=== PATIENT | female | born 1935 | race Caucasian/White ===

== ENCOUNTER 2019-07-17 10:32 | Emergency (ER) | payer MEDICARE, SELFPAY ==
[2019-07-17 10:43] VITALS: BP 183/100; PULSE 89; RESP 18; TEMP 36.7; O2SAT 98
--- NOTE | 2019-07-17 10:49 | PC.NURSE ---
pt does not know her medications but has taken them already this am. States is on meds for hypertension and arthritis.
--- NOTE | 2019-07-17 11:00 | ED.BACK ---
HPI - Back Pain/Injury General Chief Complaint: Back Pain/Injury Stated Complaint: flank pain Time Seen by Provider: 07/17/19 10:37 Source: patient Mode of arrival: wheelchair Limitations: no limitations History of Present Illness HPI Narrative: This is a 83 year old female that presents to the ER for low back pain since this morning. No known injury or trauma. Reports she was having some trouble getting out of bed due to right sided low back pain. Reports the pain radiates across her lower back. Reports the pain has since decreased. She has not taken any pain medication for this. Denies fever, nausea, vomiting, abdominal pain, saddle anesthesia, bowel/bladder incontinence, dysuria, or hematuria. Related Data Home Medications Medication Instructions Recorded Confirmed Unable to Obtain Home Medications 07/17/19 07/17/19 Allergies Allergy/AdvReac Type Severity Reaction Status Date / Time No Known Allergies Allergy Mild Unverified 07/17/19 10:49 Review of Systems Review of Systems: Narrative: CONSTITUTIONAL: Denies fever GASTROINTESTINAL: Denies abdominal pain, nausea, vomiting GENITOURINARY: Denies dysuria or hematuria. SKIN: Denies rash MUSCULOSKELETAL: Reports back pain, joint pain, and myalgia. NEUROLOGIC: Denies numbness, or weakness. All systems reviewed & are unremarkable except as noted in HPI and below PMFSH Past Medical History Medical History (Updated 07/17/19 @ 12:06 by Opal Mcgrath PA-C) History of hypertension Social History Social History (Updated 07/17/19 @ 11:03 by Opal Mcgrath PA-C) Smoking status: Never smoker Gender identity (if verbalized by the patient): Female Exam Narrative: Exam Narrative: GENERAL: Well-appearing, well-nourished, and in no acute distress. HEAD: Normocephalic, atraumatic. EYES: EOMI. CHEST: Clear to auscultation. No respiratory distress. No wheezes rales or rhonchi HEART: Regular rate and rhythm. No murmur heard. Normal peripheral pulses. BACK: No midline spinal tenderness. Strength equal in bilateral lower extremities (5/5) EXTREMITIES: Normal range of motion. No edema. SKIN: Warm, dry, no rash. NEURO: No focal deficits. Alert and oriented x3. Normal gait PSYCH: Normal mood and affect Course Vital Signs Vital signs: Vital Signs Temperature 98.1 F 02/26/20 10:43 Pulse Rate 89 07/17/19 10:43 Respiratory Rate 18 07/17/19 10:43 Blood Pressure 183/100 H 07/17/19 10:43 Pulse Oximetry 98 07/17/19 10:43 Temperature 98.1 F 07/17/19 10:43 Pulse Rate 89 07/17/19 10:43 Respiratory Rate 18 07/17/19 10:43 Blood Pressure 183/100 H 07/17/19 10:43 Pulse Oximetry 98 07/17/19 10:43 MDM - Back Pain/Injury MDM Narrative Medical decision making narrative: Patient presents to the emergency department for right-sided low back pain since this morning. No known injury or trauma. She is neurologically intact. No midline spinal tenderness. Blood pressure elevated on arrival, patient is asymptomatic. She denies any chest pain, shortness of breath, or headache. She was instructed to follow-up with her primary for this. Otherwise vitals are normal. She is afebrile and nontoxic-appearing. She ambulated in the halls without difficulty. She reports improvement after Tylenol and anti-inflammatory. She was instructed to continue [id number] medications as needed and to follow-up with her primary doctor. Patient was given warnings to return to the ER Critical Care Time Critical Care Time Critical Care Time: No Discharge Plan Discharge Clinical Impression: Low back pain Qualifiers: Chronicity: acute Back pain laterality: right Sciatica presence: without sciatica Qualified Code(s): M54.5 - Low back pain Patient Disposition: Home, Self-Care Condition: Stable Instructions: Acute Low Back Pain (ED) Additional Instructions: Return to the ER if you experience fever, abdominal pain, pain or burning with urination, weakness, nu
[2019-07-17] MEDS: ACETAMINOPHEN 325 MG TABLET 650 MG PO (11:01)
[2019-07-17] MEDS: KETOROLAC (*BKC) 60 MG/2 ML VIAL 30 MG IM (11:02)
[2019-07-17 12:16] VITALS: BP 168/108; PULSE 77; RESP 16; O2SAT 98
== END 2019-07-17 12:16 | disposition home or self-care (01) ==
PROVIDERS: Emergency Provider Emergency Medicine; PCP Internal Medicine Infectious Disease
DX: M54.5 Low back pain (principal); I10 Essential (primary) hypertension
CPT/HCPCS: 96372; 99283; A9270; J1885

== ENCOUNTER 2021-11-08 11:23 | Inpatient (IN) | payer MEDICARE, SELFPAY ==
[2021-11-08] VITALS (9 sets, daily range): BP systolic 146–173; BP diastolic 43–87; PULSE 101–124; RESP 16–30; TEMP 36.7–37.7; O2SAT 96–99; BMI 30.6
--- NOTE | ~2021-11-08 | CT_ITS ---
EXAMINATION: CTA chest PE protocol DATE: 11/08/2021 14:29 INDICATION: Dyspnea TECHNIQUE: Computed tomography angiography (CTA) of the chest was performed with 100 mL Omnipaque-350 intravenous contrast timed to evaluate the pulmonary arteries. Coronal maximum intensity projection 3D-reconstructions were created by the technologist. Automated exposure control and iterative reconst ruction technique were employed. Exam dose: 433.84 mGy-cm total exam DLP. COMPARISON: 11/08/2021 portable AP chest FINDINGS: There is diagnostic contrast enhancement of the pulmonary arteries and no evidence of pulmo nary embolism. Mild thoracic aortic aneurysm. There is aortic and coronary artery calcification. Borderline heart si ze. No hilar or mediastinal mass lesion or lymphadenopathy. Moderately prominent size hiatal hernia. No pulmonary infiltrate or consolidation. Normal morphology of the adrenal glands. Left shoulder joint prosthesis. 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 Diffuse idiopathic skeletal hyperostosis of the thoracic spine. No suspicious osteolytic or osteoblastic lesions are noted. Osteopenia. IMPRESSION: No evidence of pulmonary embolism Reviewed, dictated and finalized at [facility]. Reviewed, dictated and finalized at location [facility].
--- NOTE | ~2021-11-08 | XR_ITS ---
EXAMINATION: XR chest 1V portable DATE: 11/08/2021 12:54 INDICATION: Cough. TECHNIQUE: frontal view of the chest was obtained. COMPARISON: None FINDINGS: Skinfold projects along the lateral right mid to lower lung zone. No other airspace opacities, pulmon arcelia edema, pleural effusion or pneumothorax. The cardiomediastinal silhouette is normal. Severe osteo arthritis at the right glenohumeral joint. Left shoulder arthroplasty. IMPRESSION: 1. No acute cardiopulmonary disease. Reviewed, dictated and finalized at location [facility].
--- NOTE | ~2021-11-08 | US_ITS ---
EXAMINATION: US venous doppler [facility] DATE: 11/08/2021 12:32 INDICATION: Bilateral lower limb swelling TECHNIQUE: Regalado scale images without and with compression and Doppler images of the bilateral lower e xtremity veins were obtained. COMPARISON: None FINDINGS: The right common femoral vein, profunda femoral vein, femoral vein, popliteal vein, peroneal trunk, p osterior tibial veins, and greater saphenous vein are patent. The left common femoral vein, profunda femoral vein, femoral vein, popliteal vein, peroneal trunk, po sterior tibial veins, and greater saphenous vein are patent. IMPRESSION: 1. Patent bilateral lower extremity veins. No evidence of deep venous thrombosis. Reviewed, dictated and finalized at location [facility]. IMPRESSION: 1. Patent bilateral lower extremity veins. No evidence of deep venous thrombosi s.
--- NOTE | 2021-11-08 11:44 | ECG_ITS ---
Measurements Intervals [place] Rate: 117 P: RI: 0 QRS: 22 QRSD: 93 T: -58 QT: 293 QTc: 410 Interpretive Statements ATRIAL FIBRILLATION WITH RAPID VENTRICULAR RESPONSE BASELINE ARTIFACT ST DEVIATION AND MODERATE T-WAVE ABNORMALITY, CONSIDER ANTEROLATERAL ISCHEMIA ST DEVIATION AND MODERATE T-WAVE ABNORMALITY, CONSIDER INFERIOR ISCHEMIA ABNORMAL ECG NO PREVIOUS ECG AVAILABLE FOR COMPARISON Electronically Signed On 11-08-2021 14:52:44 CDT by Geo Schwab M.D.
--- NOTE | 2021-11-08 12:34 | ED.GENADULT ---
HPI - General Adult General Chief complaint: Extremity Injury, Lower Stated complaint: glf this am, lower extremety swelling x 1 week History of Present Illness HPI narrative: Patient presents emergency department from home for leg swelling. Patient states that she has been feeling weak and fell earlier today and EMS to come to the house for lift assist patient again and try to get up and had not been able to get up and had at that time EMS was called and transfer the patient to the emergency department. Patient states she has been having increased swelling in her bilateral legs over the past 1 week states that with this she has been having some shortness of breath is worse with exertion Per the family the patient tested positive for COVID-19 approximately week to 2 weeks ago with a home test but is unsure of the exact date patient states that her legs have been aching at the swelling but denies any direct trauma or injury from her fall she denies striking her head or any head injury Related Data Home Medications Medication Instructions Recorded Confirmed levothyroxine 137 mcg tablet tablet 11/08/21 lisinopril 40 mg tablet tablet 11/08/21 metoprolol succinate 100 mg tablet PO 11/08/21 tablet,extended release 24 hr omeprazole 40 mg capsule,delayed cap 11/08/21 release trospium 20 mg tablet tablet 11/08/21 11/08/21 Allergies Allergy/AdvReac Type Severity Reaction Status Date / Time No Known Allergies Allergy Mild Unverified 11/08/21 11:38 Review of Systems Review of Systems: Gen.: Denies fevers or chills Eyes: Denies eye pain or visual change ENT: Denies congestion Respiratory: For shortness of breath CV: Denies chest pain or palpitations GI: Denies abdominal pain nausea, emesis or diarrhea Musculoskeletal: Denies back pain or muscle pain reports lower extremity edema Neuro: Denies numbness, tingling, weakness or focal weakness Skin: Denies rash Except as documented, all other systems reviewed and negative [facility] Past Medical History Medical History (Updated 11/08/21 @ 17:52 by Vasiliy Fox DO) History of hypertension Social History Social History (Updated 07/17/19 @ 11:03 by Opal Mcgrath PA-C) Smoking status: Never smoker Gender identity (if verbalized by the patient): Female Exam Narrative: APPEARANCE: No acute distress, nontoxic, resting in bed EYES: EOMI, PERRL HEENT: Normocephalic, atraumatic, OMM RESPIRATORY: No respiratory distress Clear to auscultation bilaterally with no rhonchi wheezing or rales. CARDIOVASCULAR: Tachycardic and regular without murmurs rubs or gallops. ABDOMINAL: Soft, nontender, nondistended, no rebound or guarding MUSCULOSKELETAl: Moves all extremities. No clubbing, cyanosis 3+ edema bilateral lower extremities, the right anterior lower leg has superficial abrasions with erythema this extends down to the foot no fluctuance NEURO: Awake and alert x 3. Following commands, speech normal, no focal deficits SKIN:: Warm, dry. No rashes lesions or abrasions PSYCHIATRIC: Normal affect/mood, Course Course Emergency Course: Discussed with [employer]ER Lyudmila for Dr. Schwab presentation work-up agrees with consult agrees with plan for Lovenox and Cardizem drip Discussed with TEXT[employer]CREEN [employer]KER Amarilys for Dr. Brooks agrees with admission Discussed with patient and family results of workup and diagnosis. Discussed need for admission. Patient and family understand and agree to current treatment plan Vital Signs Vital signs: Vital Signs Temperature 98.1 F 11/08/21 11:24 Pulse Rate 116 H 11/08/21 11:24 Respiratory Rate 20 11/08/21 11:24 Blood Pressure 173/87 H 11/08/21 11:24 Pulse Oximetry 99 11/08/21 11:24 Oxygen Delivery Room Air 11/08/21 11:24 Temperature 98.1 F 11/08/21 11:24 Pulse Rate 114 H 11/08/21 16:16 Respiratory Rate 26 H 11/08/21 16:16 Blood Pressure 146/72 H 11/08/21 16:16 Pulse Oximetry 99 11/08/21 16:16 Oxygen Delivery Room Air 11/08/21
[2021-11-08 12:56] LABS: Basophils Percent Auto 0.2 % (0.2-1.2); Eosinophils Percent Auto 0.1 % (0-4.4); Hematocrit 34.7 % (37.0-47.0); Hemoglobin 11.2 g/dL (12.0-15.0); Immature Granulocyte Absolute 0.06 K/mm3 (0.00-0.031); Immature Granulocyte Percent A 0.6 % (0-0.5); Lymphocytes Absolute Auto 0.48 K/mm3 (0.9-3.2); Lymphocytes Percent Auto 4.7 % (18.3-44.2); Mean Corpuscular HGB Conc 32.3 g/dl (32-36); Mean Corpuscular Hemoglobin 29.5 pg (26-34); Mean Corpuscular Volume 91.3 fl (80-100); Mean Platelet Volume 9.6 fl (7.4-10.4); Monocytes Absolute Auto 1.3 K/mm3 (0.1-0.6); Monocytes Percent Auto 12.3 % (2.6-8.5); Neutrophils Absolute Auto 8.5 K/mm3 (1.3-6.7); Neutrophils Percent Auto 82.1 % (45.5-73.1); Platelet Count Result 220 k/mm3 (150-375); Red Cell Distribution Width 14.6 % (11.5-14.5); White Blood Count 10.3 K/mm3 (4.5-10.0)
[2021-11-08 13:06] LABS: INR 1.1; Prothrombin Time 13.6 Seconds (11.1-14.7)
[2021-11-08 13:07] LABS: Alanine Aminotransferase 12 U/L (6-35); Albumin Level 3.6 g/dL (3.5-5.1); Alkaline Phosphatase 74 U/L (38-126); Anion Gap 5 mmol/L (8-16); Aspartate Amino Transferase 17 U/L (14-36); Bilirubin,Total 0.9 mg/dL (0.2-1.3); Blood Urea Nitrogen 15 mg/dL (7-17); Calcium 8.5 mg/dL (8.4-10.2); Carbon Dioxide 29 mmol/L (22-30); Chloride 100 mmol/L (98-107); Estimated CRCL calculation 46 ml/min; Estimated Glomerular Filt Rate > 60; Glucose 129 mg/dL (65-110); Partial Thromboplastin Time 29.6 SECONDS (22.3-36.8); Potassium 3.8 mmol/L (3.4-5.0); Sodium 134 mmol/L (137-145)
[2021-11-08] MEDS: dilTIAZem 100 MG/100 ML 100 MG/100 ML BAG IV CONT (13:09)
[2021-11-08 13:32] LABS: NT Pro B Type Natriuretic Pept 797 pg/mL (5-100); Troponin I 0.044 ng/mL (0.000-0.034)
[2021-11-08] MEDS: ENOXAPARIN 100 MG/ML SYRINGE 81 MG SUB-Q (16:09)
[2021-11-08 16:10] LABS: SARS-CoV-2 RNA PCR Positive
[2021-11-08 16:41] LABS: Troponin I 0.052 ng/mL (0.000-0.034)
[2021-11-08 16:49] LABS: Appearance Urine Cloudy (Clear); Bilirubin Urine Negative (Negative); Color Urine Yellow (Yellow); Glucose Urine UA Negative (Negative); Ketones Urine 1+ mg/dL (Negative); Leukocyte Esterase Ur 2+ LEU/UL (Negative); Nitrate Urine Negative (Negative); Protein Urine 1+ mg/dL (Negative); Specific Grav Ur 1.015 (1.001-1.035); Urobilinogen Urine 0.2 mg/dL (<2.0)
[2021-11-08 16:52] LABS: Add Urine Microscopic? YES; Bacteria Urine 2+ /hpf; Blood Urine Trace-Intact (Negative); Mucus Urine Heavy /lpf; RBC Urine 0-2 /hpf (0-2); WBC Urine >75 /hpf
--- NOTE | 2021-11-08 17:36 | ADMGEN ---
This patient, Janet Galvez, was admitted to [facility] Surg Room [facility] at 1736 on 11/08/2021. Patient/family oriented to hospital policies and general routines including ID bracelet, bed and alarms, visiting hours, pain management, procedures, bathroom and other care routines, personal items, smoking policy, room service/diet, and visiting hours. Information on how to activate the Rapid Response Team has been discussed. Patient/Family are encouraged to report perceived risks to care and to ask questions if they do not understand what they are told or what they should do.
--- NOTE | 2021-11-08 19:31 | PM.IMHP ---
H&P: HPI History of Present Illness Date/Time: Patient was placed observation status for expected length of stay less than 23 hours for management, will plan to re-evaluate tomorrow for improvement. 11/08/21 19:31 Chief Complaint: Weakness Narrative: Ms. Galvez is an 85-year-old female who presented to the emergency room with complaints of weakness x1 week. Patient states that she was diagnosed with COVID a couple of weeks ago, her family is at bedside states they are unsure the exact date she took a home test. Patient states she has had a cough off and on since that time. Patient denies any sputum production. Patient denies any fever chills. Patient denies any chest pain or palpitations. Patient states that when she got up this morning she was feeling weaker than she had been last week. Patient states that she fell this morning and was unable to be assisted up by her family. Patient states that EMS need to be called to help her get up. Patient states that she has noticed some swelling to bilateral lower extremities for the last 2-3 weeks and she at noticed some pain to bilateral lower extremities with right being greater than left. Patient states she has had occasional shortness of breath with exertion. Patient denies any dysuria, hematuria, frequency, or urgency. Patient denies any abdominal pain, nausea, vomiting, constipation, or diarrhea. Patient states she has been taking all medications without any difficulty. Upon evaluation emergency room patient was noted to be in atrial fibrillation with rapid ventricular response and was placed on a Cardizem drip. Patient was also noted to have a mild elevation in her troponins. Patient's EKG showed atrial fibrillation with rapid ventricular response with ST depressions anterior lateral and inferiorly. Patient states she has a known history of hypertension and hypothyroidism. Patient denies any history of CAD, CVA, or peripheral arterial disease. Review of Systems Review of Systems: A 12 point review of systems was completed patient all pertinent positive and negative per HPI the remainder are unremarkable. [facility] Past Medical History Medical History (Updated 11/08/21 @ 20:04 by Amarilys Carson APRN) History of hypertension Hypothyroidism Surgical History Surgical History (Updated 11/08/21 @ 19:52 by Amarilys Carson APRN) History of appendectomy History of hysterectomy History of open reduction and internal fixation (ORIF) procedure Left arm Family History Family History (Updated 11/08/21 @ 19:55 by Yeny Shoemaker RN) Other Unknown family medical history Social History Social History (Updated 07/17/19 @ 11:03 by Opal Mcgrath PA-C) Smoking status: Never smoker Alcohol intake: never Substance use: never Gender identity (if verbalized by the patient): Female Spiritual care concerns: No Meds Home Medications and Allergies Home Medications Medication Instructions Recorded Confirmed Type levothyroxine 137 mcg tablet 1 tablet PO DAILY 11/08/21 11/08/21 History lisinopril 40 mg tablet 1 tablet PO DAILY 11/08/21 11/08/21 History metoprolol succinate 100 mg 1 tablet PO DAILY 11/08/21 11/08/21 History tablet,extended release 24 hr omeprazole 40 mg capsule,delayed 1 cap PO DAILY 11/08/21 11/08/21 History release trospium 20 mg tablet 1 tablet PO DAILY 11/08/21 11/08/21 History Allergies Allergy/AdvReac Type Severity Reaction Status Date / Time No Known Allergies Allergy Mild Unverified 11/08/21 11:38 Vital Signs Vital Signs - 24 hr 11/08/21 11:24 11/08/21 12:27 11/08/21 13:09 Temperature 36.7 C Pulse Rate 116 H 117 H 118 H Respiratory Rate 20 24 H Blood Pressure 173/87 H 157/72 H Pulse Oximetry 99 97 Oxygen Delivery Room Air 11/08/21 16:01 11/08/21 16:16 11/08/21 17:59 Temperature 37.7 C H Pulse Rate 113 H 114 H 114 H Respiratory Rate 22 H 26 H 16 Blood Pressure 146/72 H 170/61 H Pu
[2021-11-08 19:58] LABS: Troponin I 0.059 ng/mL (0.000-0.034)
[2021-11-08] MEDS: ACETAMINOPHEN 325 MG TABLET 650 MG PO (20:41)
[2021-11-09] VITALS (18 sets, daily range): BP systolic 131–182; BP diastolic 55–94; PULSE 66–100; RESP 18–25; TEMP 36.8–38.3; O2SAT 92–99
[2021-11-09 04:36] LABS: Basophils Percent Auto 0.3 % (0.2-1.2); Eosinophils Absolute Auto 0.1 K/mm3 (0-0.3); Hematocrit 31.1 % (37.0-47.0); Hemoglobin 10.2 g/dL (12.0-15.0); Immature Granulocyte Absolute 0.06 K/mm3 (0.00-0.031); Immature Granulocyte Percent A 0.8 % (0-0.5); Lymphocytes Absolute Auto 0.72 K/mm3 (0.9-3.2); Lymphocytes Percent Auto 9.1 % (18.3-44.2); Mean Corpuscular HGB Conc 32.8 g/dl (32-36); Mean Corpuscular Hemoglobin 29.6 pg (26-34); Mean Corpuscular Volume 90.1 fl (80-100); Monocytes Absolute Auto 1.2 K/mm3 (0.1-0.6); Monocytes Percent Auto 15.6 % (2.6-8.5); Neutrophils Absolute Auto 5.8 K/mm3 (1.3-6.7); Neutrophils Percent Auto 73.2 % (45.5-73.1); Platelet Count Result 200 k/mm3 (150-375); Red Blood Count 3.45 M/mm3 (4.2-5.4); Red Cell Distribution Width 14.6 % (11.5-14.5); White Blood Count 7.9 K/mm3 (4.5-10.0)
[2021-11-09 04:47] LABS: Magnesium 1.9 mg/dL (1.6-2.3)
[2021-11-09 04:52] LABS: Alanine Aminotransferase 11 U/L (6-35); Albumin Level 3.3 g/dL (3.5-5.1); Alkaline Phosphatase 48 U/L (38-126); Anion Gap 4 mmol/L (8-16); Aspartate Amino Transferase 26 U/L (14-36); Bilirubin,Total 0.9 mg/dL (0.2-1.3); Blood Urea Nitrogen 11 mg/dL (7-17); Calcium 7.7 mg/dL (8.4-10.2); Carbon Dioxide 25 mmol/L (22-30); Chloride 103 mmol/L (98-107); Estimated CRCL calculation 60 ml/min; Estimated Glomerular Filt Rate > 60; Glucose 110 mg/dL (65-110); Sodium 132 mmol/L (137-145)
[2021-11-09] MEDS: LEVOTHYROXINE SODIUM 25 MCG TABLET PO (06:05)
[2021-11-09] MEDS: LEVOTHYROXINE SODIUM 112 MCG TABLET PO (06:05)
[2021-11-09] MEDS: ENOXAPARIN 100 MG/ML SYRINGE 80 MG SUB-Q ×2 (06:05→17:57)
[2021-11-09] MEDS: dilTIAZem 100 MG/100 ML 100 MG/100 ML BAG IV CONT (06:35)
--- NOTE | 2021-11-09 08:27 | PM.CNCAR ---
Assessment and Plan Assessment and plan (1) Atrial fibrillation with rapid ventricular response: Code(s): I48.91 - Unspecified atrial fibrillation Status: Acute Assessment and Plan: 85-year-old female with hypertension, hypothyroidism on levothyroxine. Patient admitted to the hospital with lower extremity swelling and shortness of breath. She was diagnosed with COVID-19 infection about 2 weeks ago, and remains positive thus far. She is currently in isolation. Patient found to be in atrial fibrillation with RVR upon presentation in the setting of COVID-19 infection. -heart rates are better controlled now, bridge IV diltiazem to short-acting p.o. diltiazem. May discontinue diltiazem if patient has significant LV systolic dysfunction on echo which is pending at this time. -change metoprolol succinate to metoprolol tartrate for now. -decrease lisinopril dose to leave room for AV rajendra blocking agent. -continue anticoagulation with low-molecular weight heparin for now. Chronic anticoagulation with 1 of the direct oral anticoagulants like apixaban or rivaroxaban. PT OT evaluation for gait stability. -continue to monitor on telemetry (2) Elevated troponin: Code(s): R77.8 - Other specified abnormalities of plasma proteins Status: Acute Assessment and Plan: Flat in the setting of AFib with RVR, COVID-19 infection. Likely non ACS. Echocardiogram is pending check LV function and wall motion. Need for any ischemic evaluation to be determined. (3) COVID-19: Code(s): U07.1 - COVID-19 Status: Acute Assessment and Plan: Management as per primary team. (4) CHF (congestive heart failure): Code(s): I50.9 - Heart failure, unspecified Status: Acute Assessment and Plan: Echo pending to assess LV/RV function, valves. Start diuresis with furosemide 40 mg p.o. q.a.m. with close monitoring of volume status, electrolytes and renal function Plan . History of Present Illness History of Present Illness Consult date/time: 11/09/21 08:27 Requesting physician: Vasiliy Fox DO Consult reason: atrial fibrillation Reason For Visit: a fib with rvr,cellulitis right leg,chf Narrative: DATE OF CONSULT: 11/09/2021 REASON FOR CONSULT: Atrial fibrillation REQUESTING PHYSICIAN:DO Dominique CHIEF COMPLAINT: Leg swelling, shortness of breath HPI: 85-year-old female with hypertension, hypothyroidism on levothyroxine. Patient presented to [facility] Emergency Room on 11/08/2021 with complaints of leg swelling and shortness of breath. Patient states that she was diagnosed with COVID-19 about 2 weeks ago. Patient states that she was vaccinated against COVID-19. She has been experiencing shortness of breath and worsening leg swelling for last 7-10 days. Patient states that she has limited mobility at baseline, use walker for ambulation. She denies chest pain, palpitation, dizziness or syncope. She denies any known prior cardiac history. Patient was found to be in atrial fibrillation with RVR at presentation, and was initiated on IV diltiazem. Currently, on telemetry, she is in atrial fibrillation with relatively controlled heart rates in 90s. Patient was found to be COVID-19 positive and placement isolation EKG on personal evaluation showed atrial fibrillation with RVR, ventricular rate 117 beats per minute, ST-T abnormality, possible ischemia. Troponins are minimally elevated with peak troponin of 0.05, essentially flat. ProBNP elevated at 797. Chest x-ray unremarkable. CT chest negative for PE. No DVT on lower extremity venous Doppler. TSH normal at 2.84. Review of Systems Review of Systems: General: Positive for fatigue Psychological: Positive for anxiety Ophthalmic: negative for loss of vision ENT: Negative for epistaxis, headaches Allergy and immunology: Negative for hives, nasal congestion Hematologic and lymphatic: Negative for overt bleeding problems Endocrine
--- NOTE | 2021-11-09 09:21 | PCOTNOTE ---
Attempted OT evaluation. Despite encouragement to participate with Occupational Therapy, patient declined at this time, reporting to much pain in legs. Will follow.
[2021-11-09] MEDS: FUROSEMIDE 40 MG TABLET PO (10:25)
[2021-11-09] MEDS: METOPROLOL TARTRATE TAB 25 MG, METOPROLOL TARTRATE TAB 50 MG 75 MG PO ×2 (10:25→21:23)
[2021-11-09] MEDS: PANTOPRAZOLE 40 MG TABLET PO ×2 (10:26→17:56)
[2021-11-09] MEDS: dilTIAZem HCL 30 MG TABLET PO ×3 (11:29→23:06)
--- NOTE | 2021-11-09 11:38 | PCPTNOTE ---
Attempted PT evaluation, pt refused stating her legs hurt too bad to participate in therapy. RN aware. Will Follow.
--- NOTE | 2021-11-09 15:10 | PM.IMPN ---
Progress Note: A&P Assessment and Plan (1) Atrial fibrillation with rapid ventricular response: Code(s): I48.91 - Unspecified atrial fibrillation Status: Acute Assessment and Plan: Patient denies any history of atrial fibrillation. Patient has been placed on a Cardizem drip for atrial fib with rapid ventricular response. Patient does take metoprolol at home and states she has been taking all home medications. Patient's magnesium is 2.0 and potassium is 3.8. TSH normal. Cardiology consulted. Cardizem was started for optimal her heart rate control and has been turned of now. Echo 11/09/2021 with EF 70% indeterminate diastolic function mildly thickened mitral valve leaflets no significant MR. (2) Elevated troponin: Code(s): R77.8 - Other specified abnormalities of plasma proteins Status: Acute Assessment and Plan: There is a mild elevation in troponins could be secondary to atrial fibrillation with the rapid ventricular response. Patient denies any history of coronary artery disease or atrial fibrillation. Consulted Cardiology (3) Cellulitis of leg, right: Code(s): L03.115 - Cellulitis of right lower limb Status: Acute Assessment and Plan: Patient's right lower extremity does appear to have cellulitis Was given Ancef. Was switched to ceftriaxone. For anaerobic coverage will add Flagyl since there was noted purulence in her cellulitis (4) Acute UTI: Code(s): N39.0 - Urinary tract infection, site not specified Status: Acute Assessment and Plan: Patient has been placed on Rocephin and will await culture and sensitivity results and adjust antibiotics accordingly based on sensitivities. (5) Weakness: Code(s): R53.1 - Weakness Status: Acute Assessment and Plan: Could be multifactorial including atrial fibrillation with rapid ventricular response as well as urinary tract infection. Will have PT/OT to evaluate and treat. Subjective Date/time seen: 11/09/21 15:10 Interval history: HPI:Ms. Galvez is an 85-year-old female who presented to the emergency room with complaints of weakness x1 week.? Patient states that she was diagnosed with COVID a couple of weeks ago, her family is at bedside states they are unsure the exact date she took a home test.? Patient states she has had a cough off and on since that time.? Patient denies any sputum production.? Patient denies any fever chills.? Patient denies any chest pain or palpitations.? Patient states that when she got up this morning she was feeling weaker than she had been last week.? Patient states that she fell this morning and was unable to be assisted up by her family.? Patient states that EMS need to be called to help her get up.? Patient states that she has noticed some swelling to bilateral lower extremities for the last 2-3 weeks and she at noticed some pain to bilateral lower extremities with right being greater than left.? Patient states she has had occasional shortness of breath with exertion.? Patient denies any dysuria, hematuria, frequency, or urgency.? Patient denies any abdominal pain, nausea, vomiting, constipation, or diarrhea.? Patient states she has been taking all medications without any difficulty.? Upon evaluation emergency room patient was noted to be in atrial fibrillation with rapid ventricular response and was placed on a Cardizem drip.? Patient was also noted to have a mild elevation in her troponins.? Patient's EKG showed atrial fibrillation with rapid ventricular response with ST depressions anterior lateral and inferiorly. Patient states she has a known history of hypertension and hypothyroidism.? Patient denies any history of CAD, CVA, or peripheral arterial disease. 11/09/2021 confused no overnight events heart rate is controlled off diltiazem drip now cardiology notes reviewed. Review of Systems Review of Systems: All systems reviewed & are unremarkable except as not
--- NOTE | 2021-11-09 16:52 | ECHO_ITS ---
Patient Info Name: Janet Galvez Age: 85 years : 1935 Gender: Female Ht: 64 in Wt: 178 lbs BSA: 1.94 m2 HR: 74 bpm BP: 182 / 75 mmHg Heart Rhythm: Sinus Rhythm Technical Quality: Fair Exam Date: 11/09/2021 10:27 AM Exam Location: Echo Lab Patient Status: Outpatient Admit Date: 11/08/2021 Staff Ordering Physician: Amarilys Carson APRN Sheet Metal Layout Mechanic: Dulce Camaar RDCS Attending Provider: Sixto Lara MD Referring Physician: Alli ZHENG; Exam Type: CA echo doppler color flow Study Info Indications - New afib Complete two-dimensional, color flow and Doppler transthoracic echocardiogram is performed. Summary 1. Complete two-dimensional, color flow and Doppler transthoracic echocardiogram is performed. 2. Technically difficult study, suboptimal image quality. Normal LV size and wall thickness, hyperdynamic LV systolic function, ejection fraction more than 70%. Indeterminate diastolic function. Mitral valve leaflets appear mildly thickened, no significant MR. Aortic valve is not well visualized, appears sclerotic; no significant stenosis by Doppler. Trace TR, unable to assess RVSP due to inadequate TR jet. Left Ventricle Left ventricular chamber dimension is normal. Left ventricular systolic function is hyperdynamic, estimated at >70%. There is no increased left ventricular wall thickness. The left ventricular diastolic function is grade I diastolic dysfunction. Right Ventricle Right ventricular chamber dimension is normal. Right ventricular systolic function is normal. Left Atria Left atrial chamber dimension is normal. Right Atria Right atrial chamber dimension is normal. Aortic Valve The aortic valve is not well visualized. There is mild aortic valve sclerosis. There is no aortic valve stenosis. Pulmonic Valve The pulmonic valve is not well visualized. Mitral Valve The mitral valve has thickened leaflets. Tricuspid Valve The tricuspid valve leaflets are normal. There is trace tricuspid valve regurgitation. Pericardium/Pleural The pericardium appears epicardial fat pad. There is trivial pericardial effusion. Left Ventricular Outflow Tract Name Value Normal LVOT 2D LVOT Diameter 2.0 cm LVOT Doppler LVOT Peak Gradient 10 mmHg LVOT Mean Gradient 6 mmHg LVOT VTI 30 cm LVOT VTI/AV VTI Ratio 0.9 LVOT Stroke Volume 95 ml LVOT CO 9.1 l/min LVOT CI 4.7 l/min/m2 Pulmonic Valve Name Value Normal RVOT Doppler RVOT Peak Gradient 4 mmHg PV Doppler PV Peak Gradient 7 mmHg
--- NOTE | 2021-11-09 16:54 | PC.NURSE ---
This patient, aJnet Galvez, was transferred to [facility] on 11/09/21 at 1649. Personal belongings sent with patient. Report given to Verito CASTRO. Appropriate documentation sent with patient.
[2021-11-09] MEDS: ACETAMINOPHEN 325 MG TABLET 650 MG PO (20:40)
[2021-11-10] VITALS (9 sets, daily range): BP systolic 137–158; BP diastolic 53–74; PULSE 59–83; RESP 18–24; TEMP 36.6–37.3; O2SAT 97–100
[2021-11-10] MEDS: ENOXAPARIN 100 MG/ML SYRINGE 80 MG SUB-Q ×2 (05:31→17:54)
[2021-11-10] MEDS: LEVOTHYROXINE SODIUM 112 MCG TABLET PO (05:31)
[2021-11-10] MEDS: dilTIAZem HCL 30 MG TABLET PO ×3 (05:31→23:45)
[2021-11-10] MEDS: LEVOTHYROXINE SODIUM 25 MCG TABLET PO (05:31)
[2021-11-10 05:59] LABS: Basophils Percent Auto 0.4 % (0.2-1.2); Eosinophils Percent Auto 0.4 % (0-4.4); Hematocrit 31.1 % (37.0-47.0); Immature Granulocyte Absolute 0.07 K/mm3 (0.00-0.031); Immature Granulocyte Percent A 0.9 % (0-0.5); Lymphocytes Absolute Auto 0.55 K/mm3 (0.9-3.2); Lymphocytes Percent Auto 6.8 % (18.3-44.2); Mean Corpuscular HGB Conc 32.2 g/dl (32-36); Mean Corpuscular Hemoglobin 29.3 pg (26-34); Mean Corpuscular Volume 91.2 fl (80-100); Monocytes Absolute Auto 1.2 K/mm3 (0.1-0.6); Monocytes Percent Auto 14.6 % (2.6-8.5); Neutrophils Absolute Auto 6.3 K/mm3 (1.3-6.7); Neutrophils Percent Auto 76.9 % (45.5-73.1); Platelet Count Result 207 k/mm3 (150-375); Red Blood Count 3.41 M/mm3 (4.2-5.4); Red Cell Distribution Width 14.3 % (11.5-14.5); White Blood Count 8.1 K/mm3 (4.5-10.0)
[2021-11-10 06:18] LABS: Alanine Aminotransferase 10 U/L (6-35); Albumin Level 3.2 g/dL (3.5-5.1); Alkaline Phosphatase 64 U/L (38-126); Anion Gap 4 mmol/L (8-16); Aspartate Amino Transferase 23 U/L (14-36); Bilirubin,Total 0.7 mg/dL (0.2-1.3); Blood Urea Nitrogen 10 mg/dL (7-17); Calcium 7.8 mg/dL (8.4-10.2); Carbon Dioxide 27 mmol/L (22-30); Chloride 101 mmol/L (98-107); Estimated CRCL calculation 55 ml/min; Estimated Glomerular Filt Rate > 60; Glucose 101 mg/dL (65-110); Potassium 3.8 mmol/L (3.4-5.0); Sodium 132 mmol/L (137-145)
[2021-11-10] MEDS: lisinopriL 10 MG TABLET PO (10:33)
[2021-11-10] MEDS: METOPROLOL TARTRATE TAB 25 MG, METOPROLOL TARTRATE TAB 50 MG 75 MG PO ×2 (10:33→20:18)
[2021-11-10] MEDS: FUROSEMIDE 40 MG TABLET PO (10:33)
[2021-11-10] MEDS: PANTOPRAZOLE 40 MG TABLET PO ×2 (10:33→17:54)
--- NOTE | 2021-11-10 15:33 | PM.IMPN ---
Progress Note: A&P Assessment and Plan (1) Atrial fibrillation with rapid ventricular response: Code(s): I48.91 - Unspecified atrial fibrillation Status: Acute Assessment and Plan: Patient denies any history of atrial fibrillation. Patient has been placed on a Cardizem drip for atrial fib with rapid ventricular response. Patient does take metoprolol at home and states she has been taking all home medications. Patient's magnesium is 2.0 and potassium is 3.8. TSH normal. Cardiology consulted. Cardizem was started for optimal her heart rate control and has been turned of now. Echo 11/09/2021 with EF 70% indeterminate diastolic function mildly thickened mitral valve leaflets no significant MR. (2) Elevated troponin: Code(s): R77.8 - Other specified abnormalities of plasma proteins Status: Acute Assessment and Plan: There is a mild elevation in troponins could be secondary to atrial fibrillation with the rapid ventricular response. Patient denies any history of coronary artery disease or atrial fibrillation. Consulted Cardiology 11/10/2021 interval history: patient remains confused unable to provide detailed review of symptom, does nod states feeling, patient with COVID-19 not requiring any oxygen, patient with a UTI with E coli being treated with ceftriaxone, patient had atrial fibrillation with RVR not rate is controlled will diltiazem 30 mg q.6, cardiac echo showed ejection fraction 70% bilateral atrial dimensions are normal, will continue to monitor. (3) Cellulitis of leg, right: Code(s): L03.115 - Cellulitis of right lower limb Status: Acute Assessment and Plan: Patient's right lower extremity does appear to have cellulitis Was given Ancef. Was switched to ceftriaxone. For anaerobic coverage will add Flagyl since there was noted purulence in her cellulitis (4) Acute UTI: Code(s): N39.0 - Urinary tract infection, site not specified Status: Acute Assessment and Plan: Patient has been placed on Rocephin and will await culture and sensitivity results and adjust antibiotics accordingly based on sensitivities. (5) Weakness: Code(s): R53.1 - Weakness Status: Acute Assessment and Plan: Could be multifactorial including atrial fibrillation with rapid ventricular response as well as urinary tract infection. Will have PT/OT to evaluate and treat. Subjective Date/time seen: 11/10/21 15:33 Interval history: HPI:Ms. Galvez is an 85-year-old female who presented to the emergency room with complaints of weakness x1 week.? Patient states that she was diagnosed with COVID a couple of weeks ago, her family is at bedside states they are unsure the exact date she took a home test.? Patient states she has had a cough off and on since that time.? Patient denies any sputum production.? Patient denies any fever chills.? Patient denies any chest pain or palpitations.? Patient states that when she got up this morning she was feeling weaker than she had been last week.? Patient states that she fell this morning and was unable to be assisted up by her family.? Patient states that EMS need to be called to help her get up.? Patient states that she has noticed some swelling to bilateral lower extremities for the last 2-3 weeks and she at noticed some pain to bilateral lower extremities with right being greater than left.? Patient states she has had occasional shortness of breath with exertion.? Patient denies any dysuria, hematuria, frequency, or urgency.? Patient denies any abdominal pain, nausea, vomiting, constipation, or diarrhea.? Patient states she has been taking all medications without any difficulty.? Upon evaluation emergency room patient was noted to be in atrial fibrillation with rapid ventricular response and was placed on a Cardizem drip.? Patient was also noted to have a mild elevation in her troponins.? Patient's EKG showed atrial fibrillation with rapid
[2021-11-11] VITALS (13 sets, daily range): BP systolic 141–159; BP diastolic 56–87; PULSE 62–91; RESP 16–24; TEMP 36.5–37.1; O2SAT 96–100
[2021-11-11] MEDS: LEVOTHYROXINE SODIUM 112 MCG TABLET PO (05:52)
[2021-11-11] MEDS: dilTIAZem HCL 30 MG TABLET PO ×3 (05:53→18:56)
[2021-11-11] MEDS: LEVOTHYROXINE SODIUM 25 MCG TABLET PO (05:53)
[2021-11-11] MEDS: ENOXAPARIN 100 MG/ML SYRINGE 80 MG SUB-Q ×2 (05:53→18:55)
[2021-11-11] MEDS: PANTOPRAZOLE 40 MG TABLET PO ×2 (10:17→18:55)
[2021-11-11] MEDS: lisinopriL 10 MG TABLET PO (10:17)
[2021-11-11] MEDS: FUROSEMIDE 40 MG TABLET PO (10:18)
--- NOTE | 2021-11-11 10:46 | PHAR ---
The patient's home med of Trospium 20mg has been verified.
--- NOTE | 2021-11-11 11:00 | PCOTNOTE ---
Attempted to see pt. for occupational therapy treatment, pt. refused to participate in treatment, stating that she did not want to get out of bed and that her foot hurts and ankle hurts. . Pt. instructed on benefits of participation in therapy, pt. verbalized that she understood and did not want to get up. Nurse updated.
[2021-11-11] MEDS: METOPROLOL TARTRATE TAB 25 MG, METOPROLOL TARTRATE TAB 50 MG 75 MG PO ×2 (11:32→21:08)
--- NOTE | 2021-11-11 14:45 | PCPTNOTE ---
Patient adamantly refused treatment this session due to c/o pain. Patient states I am hurting all over and there is no way I can get up out of bed. My legs hurt too much. RN encouraged patient to participate in PT but patient continued to refuse.
--- NOTE | 2021-11-11 15:23 | PC.NURSE ---
RN contacted family member, Neri in regards to AMS. Neri, stated this is a new onset of confusion. Potentially related to Dx UTI, cellulitis, and new onset AFIB. with RVR.
--- NOTE | 2021-11-11 16:33 | PM.IMPN ---
Progress Note: A&P Assessment and Plan (1) Atrial fibrillation with rapid ventricular response: Code(s): I48.91 - Unspecified atrial fibrillation Status: Acute Assessment and Plan: Patient denies any history of atrial fibrillation. Patient has been placed on a Cardizem drip for atrial fib with rapid ventricular response. Patient does take metoprolol at home and states she has been taking all home medications. Patient's magnesium is 2.0 and potassium is 3.8. TSH normal. Cardiology consulted. Cardizem was started for optimal her heart rate control and has been turned of now. Echo 11/09/2021 with EF 70% indeterminate diastolic function mildly thickened mitral valve leaflets no significant MR. (2) Elevated troponin: Code(s): R77.8 - Other specified abnormalities of plasma proteins Status: Acute Assessment and Plan: There is a mild elevation in troponins could be secondary to atrial fibrillation with the rapid ventricular response. Patient denies any history of coronary artery disease or atrial fibrillation. Consulted Cardiology 11/10/2021 interval history: patient remains confused unable to provide detailed review of symptom, does nod states feeling, patient with COVID-19 not requiring any oxygen, patient with a UTI with E coli being treated with ceftriaxone, patient had atrial fibrillation with RVR not rate is controlled will diltiazem 30 mg q.6, cardiac echo showed ejection fraction 70% bilateral atrial dimensions are normal, will continue to monitor. 11/11/2021 interval history: patient remains confused unable to provide detailed review of symptom, does nod states not feeling well, patient with COVID-19 not requiring any oxygen, patient with a UTI with E coli being treated with ceftriaxone, patient had atrial fibrillation with RVR not rate is controlled will diltiazem 30 mg q.6, cardiac echo showed ejection fraction 70% bilateral atrial dimensions are normal, patient remains confused unable to provide any detail she knows she is in hospital, but not sure where she is, nursing staff communicated with the family normally patient is more alert and oriented and able to manage herself, I believe with UTI, and COVID-19 resulted change in mental status will continue to monitor will have PT OT evaluate the patient. (3) Cellulitis of leg, right: Code(s): L03.115 - Cellulitis of right lower limb Status: Acute Assessment and Plan: Patient's right lower extremity does appear to have cellulitis Was given Ancef. Was switched to ceftriaxone. For anaerobic coverage will add Flagyl since there was noted purulence in her cellulitis (4) Acute UTI: Code(s): N39.0 - Urinary tract infection, site not specified Status: Acute Assessment and Plan: Patient has been placed on Rocephin and will await culture and sensitivity results and adjust antibiotics accordingly based on sensitivities. (5) Weakness: Code(s): R53.1 - Weakness Status: Acute Assessment and Plan: Could be multifactorial including atrial fibrillation with rapid ventricular response as well as urinary tract infection. Will have PT/OT to evaluate and treat. Subjective Date/time seen: 11/11/21 16:33 Interval history: HPI:Ms. Galvez is an 85-year-old female who presented to the emergency room with complaints of weakness x1 week.? Patient states that she was diagnosed with COVID a couple of weeks ago, her family is at bedside states they are unsure the exact date she took a home test.? Patient states she has had a cough off and on since that time.? Patient denies any sputum production.? Patient denies any fever chills.? Patient denies any chest pain or palpitations.? Patient states that when she got up this morning she was feeling weaker than she had been last week.? Patient states that she fell this morning and was unable to be assisted up by her family.? Patient states that EMS need to be wilder
[2021-11-12] VITALS (11 sets, daily range): BP systolic 136–160; BP diastolic 57–86; PULSE 63–106; RESP 20–24; TEMP 36.2–36.5; O2SAT 97–98
[2021-11-12] MEDS: dilTIAZem HCL 30 MG TABLET PO ×4 (00:28→17:16)
[2021-11-12] MEDS: ACETAMINOPHEN 325 MG TABLET 650 MG PO (04:07)
[2021-11-12] MEDS: LEVOTHYROXINE SODIUM 25 MCG TABLET PO (05:32)
[2021-11-12] MEDS: LEVOTHYROXINE SODIUM 112 MCG TABLET PO (05:32)
[2021-11-12] MEDS: ENOXAPARIN 100 MG/ML SYRINGE 80 MG SUB-Q ×2 (05:32→17:15)
[2021-11-12] MEDS: METOPROLOL TARTRATE TAB 25 MG, METOPROLOL TARTRATE TAB 50 MG 75 MG PO ×2 (09:32→22:38)
[2021-11-12] MEDS: lisinopriL 10 MG TABLET PO (09:33)
[2021-11-12] MEDS: PANTOPRAZOLE 40 MG TABLET PO ×2 (09:33→17:15)
[2021-11-12] MEDS: FUROSEMIDE 40 MG TABLET PO (09:33)
--- NOTE | 2021-11-12 14:01 | WPDCDIQUERY2 ---
CDI Query Clarification Request 11/08 ER physcian documented: Clinical Impression: ?Atrial fibrillation with rapid ventricular response, Cellulitis of leg, right, Acute UTI, COVID-19, CHF (congestive heart failure), Weakness NT-Pro-B Natriuret Pep 797 H Please clarify if diagnosis: CHF, (Congestive Heart Failure) has been ruled in or ruled out or unable to determine If diagnosis CHF, (Congestive Heart Failure), has been ruled in please clarify if: Acute, Chronic, Acute on Chronic or unable to determine. If diagnosis CHF, (Congestive Heart Failure), has been ruled in, please clarify if: Systolic, Diastolic, combined, or unable to determine <Gianna Ventura - Last Filed: 11/12/21 14:05> Clarified Diagnosis (1) CHF (congestive heart failure): Code(s): I50.9 - Heart failure, unspecified <Gianna Ventura - Last Filed: 11/12/21 14:05> Status: Acute <Gianna Ventura - Last Filed: 11/12/21 14:05> Assessment and Plan: most likely patient does not have heart failure as patient ejection fraction is 70% and Indeterminate diastolic function. however patient BNP was slightly elevated suggested some cardiac strain <Kendall Hoyos MD - Last Filed: 11/30/21 18:43>
--- NOTE | 2021-11-12 14:13 | P.PNIM_ITS ---
Progress Note: A&P Assessment and Plan (1) Atrial fibrillation with rapid ventricular response: Code(s): I48.91 - Unspecified atrial fibrillation Status: Acute Assessment and Plan: Patient denies any history of atrial fibrillation. Patient has been placed on a Cardizem drip for atrial fib with rapid ventricular response. Patient does take metoprolol at home and states she has been taking all home medications. Patient's magnesium is 2.0 and potassium is 3.8. TSH normal. Cardiology consulted. Cardizem was started for optimal her heart rate control and has been turned of now. Echo 11/09/2021 with EF 70% indeterminate diastolic function mildly thickened mitral valve leaflets no significant MR. (2) Elevated troponin: Code(s): R77.8 - Other specified abnormalities of plasma proteins Status: Acute Assessment and Plan: There is a mild elevation in troponins could be secondary to atrial fibrillation with the rapid ventricular response. Patient denies any history of coronary artery disease or atrial fibrillation. Consulted Cardiology 11/10/2021 interval history: patient remains confused unable to provide detailed review of symptom, does nod states feeling, patient with COVID-19 not requiring any oxygen, patient with a UTI with E coli being treated with ceftriaxone, patient had atrial fibrillation with RVR not rate is controlled will diltiazem 30 mg q.6, cardiac echo showed ejection fraction 70% bilateral atrial dimensions are normal, will continue to monitor. 11/11/2021 interval history: patient remains confused unable to provide detailed review of symptom, does nod states not feeling well, patient with COVID-19 not requiring any oxygen, patient with a UTI with E coli being treated with ceftriaxone, patient had atrial fibrillation with RVR not rate is controlled will diltiazem 30 mg q.6, cardiac echo showed ejection fraction 70% bilateral atrial dimensions are normal, patient remains confused unable to provide any detail she knows she is in hospital, but not sure where she is, nursing staff communicated with the family normally patient is more alert and oriented and able to manage herself, I believe with UTI, and COVID-19 resulted change in mental status will continue to monitor will have PT OT evaluate the patient. 11/12/2021 interval history: patient remains confused unable to provide detailed review of symptom, does nod, states not feeling well, today patient work with PT and currently sitting in the chair, patient with COVID-19 not requiring any oxygen, patient with a UTI with E coli being treated with ceftri axone,5/7days, patient had atrial fibrillation with RVR now rate is controlled will diltiazem 30 mg q.6, cardiac echo showed ejection fraction 70% bilateral atrial dimensions are normal, patient remains confused unable to provide any detail she knows she is in hospital, but not sure where she is, nursing staff communicated with the family normally patient is more alert and oriented and able to manage herself, I believe with UTI, and COVID-19 resulted change in mental status will continue to monitor will have PT OT evaluate the patient. Patient will benefit going to SNF for rehab. (3) Cellulitis of leg, right: Code(s): L03.115 - Cellulitis of right lower limb Status: Acute Assessment and Plan: Patient's right lower extremity does appear to have cellulitis Was given Ancef. Was switched to ceftriaxone. For anaerobic coverage will add Flagyl since there was noted purulence in her cellulitis (4) Acute UTI: Code(s): N39.0 - Urinary tract infection, site not specified Status: Acute Assessment and Plan: Patient tuttle
--- NOTE | 2021-11-12 15:00 | PCOTNOTE ---
The OT treatment was not completed 11/12/21. Will continue plan of care.
[2021-11-12 16:44] LABS: Glucose Point of Care 117 mg/dl (65-105)
[2021-11-13] VITALS: PULSE 81
[2021-11-13] MEDS: dilTIAZem HCL 30 MG TABLET PO ×2 (01:31→06:31)
[2021-11-13 04:00] VITALS: PULSE 81
[2021-11-13 06:00] VITALS: BP 172/68; PULSE 81; RESP 24; TEMP 37.3; O2SAT 98
[2021-11-13 06:20] LABS: Hematocrit 33.1 % (37.0-47.0); Hemoglobin 10.9 g/dL (12.0-15.0); Mean Corpuscular HGB Conc 32.9 g/dl (32-36); Mean Corpuscular Hemoglobin 29.3 pg (26-34); Mean Platelet Volume 9.6 fl (7.4-10.4); Platelet Count Result 264 k/mm3 (150-375); Red Blood Count 3.72 M/mm3 (4.2-5.4); White Blood Count 5.8 K/mm3 (4.5-10.0)
[2021-11-13] MEDS: LEVOTHYROXINE SODIUM 112 MCG TABLET PO (06:29)
[2021-11-13] MEDS: ENOXAPARIN 100 MG/ML SYRINGE 80 MG SUB-Q (06:30)
[2021-11-13 07:04] LABS: Anion Gap 5 mmol/L (8-16); Blood Urea Nitrogen 15 mg/dL (7-17); Calcium 8.3 mg/dL (8.4-10.2); Carbon Dioxide 28 mmol/L (22-30); Chloride 100 mmol/L (98-107); Estimated CRCL calculation 54 ml/min; Estimated Glomerular Filt Rate > 60; Glucose 118 mg/dL (65-110); Magnesium 2.2 mg/dL (1.6-2.3); Potassium 4.1 mmol/L (3.4-5.0); Sodium 133 mmol/L (137-145)
--- NOTE | 2021-11-13 08:13 | PM.PNCARD ---
Progress Note: A&P Assessment and Plan (1) Atrial fibrillation with rapid ventricular response: Code(s): I48.91 - Unspecified atrial fibrillation Status: Acute Plan AF of unknown duration . Rate -control strategy being pursued . Will consolidate meds to Q Day regimen . Transition from Lovenox to DOAC. DC plans per the primary team Kelvin Martinez MD [facility] Subjective Date/time seen: Date of service:11/13/21 08:13 Interval history: Follow up in this 85 yo WF with : AF of unknown duration . Seen by Dr Herbert on 11/09. Rate is controlled with short -acting Diltiazem and Metoprolol. On Lovenox Also with Coronavirus Exam Const: Other: ALert / Disoriented HENMT: Mouth: Yes moist mucous membranes Eyes: Sclera: sclerae normal Neck: Neck: supple and no JVD Resp: Auscultation: clear to auscultation bilaterally Cardio: Rhythm: abnormal rhythm irregularly irregular GI: GI Palp: Yes Soft to palpation Auscultation: normal bowel sounds Skin: General skin exam: normal color Objective Data Vital Signs Vital Signs: Vital Signs - 24 hr 11/12/21 09:32 11/12/21 09:30 11/12/21 12:00 Temperature Pulse Rate 68 82 Respiratory Rate Blood Pressure Pulse Oximetry Oxygen Delivery Room Air 11/12/21 14:00 11/12/21 16:00 11/12/21 21:44 Temperature 36.2 C L 36.5 C Pulse Rate 81 87 99 Respiratory Rate 20 24 H Blood Pressure 136/57 L 160/86 H Pulse Oximetry 98 97 Oxygen Delivery 11/12/21 22:38 11/12/21 20:00 11/12/21 20:00 Temperature Pulse Rate 88 106 H 88 Respiratory Rate 24 H Blood Pressure Pulse Oximetry 97 Oxygen Delivery Room Air 11/13/21 00:00 11/13/21 04:00 11/13/21 06:00 Temperature 37.3 C Pulse Rate 81 81 81 Respiratory Rate 24 H Blood Pressure 172/68 H Pulse Oximetry 98 Oxygen Delivery Intake/Output Intake/Output: Intake & Output 11/10/21 11/11/21 11/12/21 11/13/21 23:59 23:59 23:59 23:59 Intake Total 440 1130 1050 100 Output Total 200 Balance 841 813 8057 100 Meds/Results Medications: Active Medications Generic Name Dose Route Start Last Admin Trade Name Freq PRN Reason Stop Dose Admin Acetaminophen 650 mg 11/08/21 17:07 11/12/21 04:07 Acetaminophen 325 Mg Tablet PO 650 mg Q6H PRN Administration Mild Pain (1-3) or Fever Apixaban 2.5 mg 11/13/21 09:00 Apixaban 2.5 Mg Tablet PO Q12HR [facility] Diltiazem HCl 120 mg 11/13/21 09:00 Diltiazem Hcl Cd 120 Mg Cap.Sa.24h PO QAM [facility] Furosemide 40 mg 11/09/21 09:00 11/12/21 09:33 Furosemide 40 Mg Tablet PO 40 mg DAILY NAYELI Administration Home Med 1 each 11/11/21 10:50 11/13/21 06:30 Home Med Trospium 20 Mg Tablet PO 12/11/21 10:49 1 each DAILY@0630 NAYELI Administration Ceftriaxone Sodium/Dextrose 1 gm in 50 mls @ 100 mls/hr 11/08/21 21:00 11/12/21 22:40 Rocephin 1 Gm/D5w 50 Ml IVPB 100 mls/hr Q24H NAYELI Administration Levothyroxine Sodium 112 mcg 11/09/21 06:30 11/13/21 06:29 Levothyroxine Sodium 112 Mcg Tablet PO 112 mcg DAILY@0630 NAYELI Administration Levothyroxine Sodium 25 mcg 11/09/21 06:30 11/12/21 05:32 Levothyroxine Sodium 25 Mcg Tablet PO 25 mcg DAILY@0630 NAYELI Administration Lisinopril 10 mg 11/10/21 09:00 11/12/21 09:33 Lisinopril 10 Mg Tablet PO 10 mg DAILY NAYELI Administration Metoprolol Succinate 100 mg 11/13/21 09:00 Metoprolol Succinate Ext Rel 100 Mg Tabcr PO QAM [facility] Ondansetron HCl 4 mg 11/08/21 17:07 Ondansetron Inj 4 Mg/2 Ml Vial IV PUSH Q6H PRN Nausea And Vomiting Pantoprazole Sodium 40 mg 11/09/21 09:00 11/12/21 17:15 Pantoprazole 40 Mg Tablet PO 40 mg BID NAYELI Administration Perflutren Lipid Microsphere 0 ml 11/08/21 16:52 Perflutren Lipid Microspheres 1.5 Ml Vial Diluted To 10 Ml Total Volume IV PUSH ONCE PRN adequate visualization Protocol Radiology Results: ITS Impr
[2021-11-13] MEDS: PANTOPRAZOLE 40 MG TABLET PO (08:55)
[2021-11-13] MEDS: FUROSEMIDE 40 MG TABLET PO (08:55)
[2021-11-13 08:57] VITALS: PULSE 78
[2021-11-13] MEDS: lisinopriL 10 MG TABLET PO (08:57)
[2021-11-13] MEDS: METOPROLOL SUCCINATE EXT REL 100 MG TABCR PO (08:57)
--- NOTE | 2021-11-13 11:51 | PCPTNOTE ---
Patient reports she does not want to therapy at this time. Patient was educated on the benefits of therapy however continued to decline. Attempted to get patient to chair for lunch however patient states she is not going to get up and not going to eat lunch.
[2021-11-13 12:00] VITALS: PULSE 74
--- NOTE | 2021-11-13 12:09 | PM.DS ---
DS: Admitting Diagnosis Discharge Date WEakness Admitting Diagnosis weakness DS: Discharge Diagnosis Discharge Diagnosis (1) Atrial fibrillation with rapid ventricular response: Code(s): I48.91 - Unspecified atrial fibrillation Status: Acute Assessment and Plan: Patient denies any history of atrial fibrillation. Patient has been placed on a Cardizem drip for atrial fib with rapid ventricular response. Patient does take metoprolol at home and states she has been taking all home medications. Patient's magnesium is 2.0 and potassium is 3.8. TSH normal. Cardiology consulted. Cardizem was started for optimal her heart rate control and has been turned of now. Echo 11/09/2021 with EF 70% indeterminate diastolic function mildly thickened mitral valve leaflets no significant MR. (2) Elevated troponin: Code(s): R77.8 - Other specified abnormalities of plasma proteins Status: Acute Assessment and Plan: There is a mild elevation in troponins could be secondary to atrial fibrillation with the rapid ventricular response. Patient denies any history of coronary artery disease or atrial fibrillation. Consulted Cardiology 11/10/2021 interval history: patient remains confused unable to provide detailed review of symptom, does nod states feeling, patient with COVID-19 not requiring any oxygen, patient with a UTI with E coli being treated with ceftriaxone, patient had atrial fibrillation with RVR not rate is controlled will diltiazem 30 mg q.6, cardiac echo showed ejection fraction 70% bilateral atrial dimensions are normal, will continue to monitor. 11/11/2021 interval history: patient remains confused unable to provide detailed review of symptom, does nod states not feeling well, patient with COVID-19 not requiring any oxygen, patient with a UTI with E coli being treated with ceftriaxone, patient had atrial fibrillation with RVR not rate is controlled will diltiazem 30 mg q.6, cardiac echo showed ejection fraction 70% bilateral atrial dimensions are normal, patient remains confused unable to provide any detail she knows she is in hospital, but not sure where she is, nursing staff communicated with the family normally patient is more alert and oriented and able to manage herself, I believe with UTI, and COVID-19 resulted change in mental status will continue to monitor will have PT OT evaluate the patient. 11/12/2021 interval history: patient remains confused unable to provide detailed review of symptom, does nod, states not feeling well, today patient work with PT and currently sitting in the chair, patient with COVID-19 not requiring any oxygen, patient with a UTI with E coli being treated with ceftriaxone,5/7days, patient had atrial fibrillation with RVR now rate is controlled will diltiazem 30 mg q.6, cardiac echo showed ejection fraction 70% bilateral atrial dimensions are normal, patient remains confused unable to provide any detail she knows she is in hospital, but not sure where she is, nursing staff communicated with the family normally patient is more alert and oriented and able to manage herself, I believe with UTI, and COVID-19 resulted change in mental status will continue to monitor will have PT OT evaluate the patient. Patient will benefit going to SNF for rehab. (3) Cellulitis of leg, right: Code(s): L03.115 - Cellulitis of right lower limb Status: Acute Assessment and Plan: Patient's right lower extremity does appear to have cellulitis Was given Ancef. Was switched to ceftriaxone. For anaerobic coverage will add Flagyl since there was noted purulence in her cellulitis (4) Acute UTI: Code(s): N39.0 - Urinary tract infection, site not specified Status: Acute Assessment and Plan: Patient has been placed on Rocephin and will await culture and sensitivity results and adjust antibiotics accordingly based on sensitivities. (5) Weakness: Code(s): R
--- NOTE | 2021-12-26 18:11 | PC.NURSE ---
Son, Neri, notified of medications left at discharge. Per son, medications are to be destroyed since patient is now in a LTC. Medications destroyed include Omeprazole, Metoprolol, Levothyroxine, Lisinopril.
== END 2021-11-13 15:30 | disposition swing bed (61) | DRG 178 ==
LOC: ANHED 12:45 → ANHIMU 16:27 → ANH3MEDSUR 17:12 → ANHIMU 17:41 → ANH3MEDSUR 11-09 16:49
PROVIDERS: Internal Medicine; Nurse Practitioner Adult Health; Admitting Provider Family Medicine; Emergency Provider Emergency Medicine; PCP Internal Medicine; Visit Provider Family Medicine
DX: U07.1 COVID-19 (principal); L03.115 Cellulitis of right lower limb; N39.0 Urinary tract infection, site not specified; B96.20 Unspecified Escherichia coli [E. coli] as the cause of diseases classified elsewhere; I48.91 Unspecified atrial fibrillation; W19.XXXA Unspecified fall, initial encounter; R77.8 Other specified abnormalities of plasma proteins; E03.9 Hypothyroidism, unspecified; I10 Essential (primary) hypertension; R41.0 Disorientation, unspecified; Z90.49 Acquired absence of other specified parts of digestive tract; Z90.710 Acquired absence of both cervix and uterus
CPT/HCPCS: 36415; 71045; 71275; 80048; 80053; 81001; 82948; 83605; 83735; 83880; 84443; 84484; 85025; 85027; 85610; 85730; 87040; 87077; 87086; 87186; 93005; 93306; 93970; 96365; 96366; 96368; 96372; 97110; 97161; 97165; 97530; 99285; A9270; C9803; G0378; J0690; J0696; J1650; Q9967; U0003; U0005

== ENCOUNTER 2021-11-13 15:52 | Inpatient (IN) | payer MEDICARE, SELFPAY ==
[2021-11-13 16:00] VITALS: BP 110/74; PULSE 88; RESP 16; TEMP 36.8; O2SAT 97
[2021-11-13 16:25] VITALS: BMI 31.8
--- NOTE | 2021-11-13 19:06 | PC.NURSE ---
Addendum entered by Lynne Lehman RN 11/13/21 19:09: Patient arrived on unit at 1605. Original Note: Patient arrived to unit via stretcher, transported by [facility]. Transferred from stretcher to bed with the assist of 4. Personal belongings in bag from prior hospital stay. Medication removed and placed in med room x 1 bottle. Patient noted to have scabbing on R quintana and L calf, secondary to cellulitis diagnosis, otherwise, skin clear and closed.
[2021-11-13] MEDS: APIXABAN 2.5 MG TABLET PO (21:28)
[2021-11-13] MEDS: CEFDINIR 300 MG CAPSULE PO (21:28)
--- NOTE | 2021-11-13 21:30 | PHAR ---
Pharmacy ID'd home med w/ nurse: *Use from home* Trospium 20 mg tablet Take 1 tablet by mouth once daily
[2021-11-14] VITALS: BP 142/70; PULSE 84; RESP 16; TEMP 36.7; O2SAT 96
[2021-11-14] MEDS: ACETAMINOPHEN 325 MG TABLET 650 MG PO ×2 (04:55→17:04)
[2021-11-14] MEDS: LEVOTHYROXINE SODIUM 25 MCG TABLET PO (06:22)
[2021-11-14] MEDS: LEVOTHYROXINE SODIUM 112 MCG TABLET PO (06:23)
[2021-11-14 08:00] VITALS: BP 149/71; PULSE 79; RESP 16; TEMP 36.4; O2SAT 97
[2021-11-14] MEDS: CEFDINIR 300 MG CAPSULE PO ×2 (08:19→20:05)
[2021-11-14] MEDS: PANTOPRAZOLE 40 MG TABLET PO ×2 (08:22→20:05)
[2021-11-14 08:23] VITALS: PULSE 79
[2021-11-14] MEDS: FUROSEMIDE 40 MG TABLET PO (08:23)
[2021-11-14] MEDS: METOPROLOL SUCCINATE EXT REL 50 MG TABCR 100 MG PO (08:23)
[2021-11-14] MEDS: APIXABAN 2.5 MG TABLET PO ×2 (08:26→20:05)
[2021-11-14] MEDS: lisinopriL 20 MG TABLET 40 MG PO (08:26)
--- NOTE | 2021-11-14 12:27 | PM.IMHP ---
H&P: HPI History of Present Illness Date/Time: 11/14/21 12:27 Chief Complaint: UTI, Covid-19, REhab, Weakness Narrative: This is a 85 year old female that is being admitted into our swing bed today. Patient was Diagnosed a couple of day prior to admission at [facility] with COVID by home test she was retested on 11/08/2021 and she was positive for COVID. Patient was found to have a UTI and Encephalopathy vs some Dementia going on. Patient has continued to improve although she remains confused and unable to ambulate prior to patient admission she was able t ambulate and perform most of her ADLS at this time she is not. Patient prior night was confused and combative with the nurses and refusing to take medication with some coaching and encouraging patient did take her medication. Mrs Galvez has a past medical history of Hypertension and hypothyroidism and recently diagnosised with A-Fib w RVR may be related to having Covid . Patient lab work was 133 sodium, potassium 4.1, BUN 15, creatinine 0.70, WBCs 5.8, hemoglobin 10.9, Hemaquet 33.1, platelets 264 patient denies any pain no nausea vomiting and/or diarrhea patient has an occasional cough that is nonproductive lungs are clear. Patient has remained afebrile has to be assisted with eating but when she is informed of what to do she is able to eat feed herself with occasional reminders at this time patient will remain a swing bed and be evaluated by physical therapy. Review of Systems Review of Systems: leg pain, UTI All systems reviewed & are unremarkable except as noted in HPI and below PMFSH Past Medical History Medical History History of hypertension Hypothyroidism Surgical History Surgical History History of appendectomy History of hysterectomy History of open reduction and internal fixation (ORIF) procedure Left arm Social History Social History Smoking status: Never smoker Second hand tobacco smoke exposure: No Alcohol intake: never Substance use: never Gender identity (if verbalized by the patient): Female Spiritual care concerns: No Comments At time as signature, I have reviewed and agree with nursing past medical, social, surgical and family history. Please see nursing chart for further information. There is no relevant family history pertinent to the presenting complaint. Meds Home Medications and Allergies Home Medications Medication Instructions Recorded Confirmed Type levothyroxine 137 mcg tablet 1 tablet PO DAILY 11/08/21 11/13/21 History lisinopril 40 mg tablet 1 tablet PO DAILY 11/08/21 11/13/21 History omeprazole 40 mg capsule,delayed 1 cap PO DAILY 11/08/21 11/13/21 History release trospium 20 mg tablet 1 tablet PO DAILY 11/08/21 11/13/21 History apixaban 2.5 mg tablet (Eliquis) 2.5 mg PO Q12HR #60 tabs 11/13/21 11/13/21 Rx cefdinir 300 mg capsule 300 mg PO Q12H #7 caps 11/13/21 11/13/21 Rx diltiazem HCl 120 mg capsule,24 120 mg PO QAM #30 caps 11/13/21 11/13/21 Rx hr,extended release furosemide 40 mg tablet 40 mg PO DAILY #30 tabs 11/13/21 11/13/21 Rx metoprolol succinate 100 mg 100 mg PO QAM #30 tabs 11/13/21 11/13/21 Rx tablet,extended release 24 hr (Toprol XL) Allergies Allergy/AdvReac Type Severity Reaction Status Date / Time No Known Allergies Allergy Mild Unverified 11/08/21 11:38 Vital Signs Vital Signs - 24 hr 11/13/21 16:00 11/14/21 00:00 11/14/21 08:00 Temperature 98.2 F 98.1 F 97.5 F L Pulse Rate 88 84 79 Respiratory Rate 16 16 16 Blood Pressure 110/74 142/70 H 149/71 H Pulse Oximetry 97 96 97 Oxygen Delivery Room Air Room Air Room Air 11/14/21 08:23 Temperature Pulse Rate 79 Respiratory Rate Blood Pressure Pulse Oximetry Oxygen Delivery Exam Narrative: GENERAL:Well-appearing, well-nourished, and in no acute di
[2021-11-14 16:00] VITALS: BP 154/69; PULSE 76; RESP 16; TEMP 36.7; O2SAT 94
[2021-11-14] MEDS: MELATONIN 3 MG TABLET PO (20:05)
[2021-11-15] VITALS: BP 140/66; PULSE 73; RESP 16; TEMP 36.6; O2SAT 99
[2021-11-15] MEDS: LEVOTHYROXINE SODIUM 112 MCG TABLET PO (06:30)
[2021-11-15] MEDS: LEVOTHYROXINE SODIUM 25 MCG TABLET PO (06:30)
[2021-11-15 07:50] VITALS: BP 145/59; PULSE 66; RESP 16; TEMP 36.6; O2SAT 96
[2021-11-15] MEDS: CEFDINIR 300 MG CAPSULE PO ×2 (08:26→20:01)
[2021-11-15] MEDS: PANTOPRAZOLE 40 MG TABLET PO ×2 (08:26→20:01)
[2021-11-15] MEDS: lisinopriL 20 MG TABLET 40 MG PO (08:26)
[2021-11-15 08:27] VITALS: PULSE 66
[2021-11-15] MEDS: METOPROLOL SUCCINATE EXT REL 50 MG TABCR 100 MG PO (08:27)
[2021-11-15] MEDS: FUROSEMIDE 40 MG TABLET PO (08:27)
[2021-11-15] MEDS: APIXABAN 2.5 MG TABLET PO ×2 (08:27→20:01)
[2021-11-15 16:35] VITALS: BP 136/67; PULSE 67; RESP 18; TEMP 36.2; O2SAT 99
[2021-11-15] MEDS: MELATONIN 3 MG TABLET PO (20:01)
[2021-11-16] VITALS: BP 141/69; PULSE 62; RESP 16; TEMP 36.3; O2SAT 98
[2021-11-16] MEDS: LEVOTHYROXINE SODIUM 25 MCG TABLET PO (06:44)
[2021-11-16] MEDS: LEVOTHYROXINE SODIUM 112 MCG TABLET PO (06:44)
[2021-11-16 08:00] VITALS: BP 140/69; PULSE 63; RESP 18; TEMP 36.2; O2SAT 97
[2021-11-16 08:54] VITALS: PULSE 88
[2021-11-16] MEDS: METOPROLOL SUCCINATE EXT REL 50 MG TABCR 100 MG PO (08:54)
[2021-11-16] MEDS: PANTOPRAZOLE 40 MG TABLET PO ×2 (08:55→20:04)
[2021-11-16] MEDS: FUROSEMIDE 40 MG TABLET PO (08:55)
[2021-11-16] MEDS: lisinopriL 20 MG TABLET 40 MG PO (08:55)
[2021-11-16] MEDS: APIXABAN 2.5 MG TABLET PO ×2 (08:55→20:04)
[2021-11-16] MEDS: CEFDINIR 300 MG CAPSULE PO ×2 (08:55→20:04)
[2021-11-16] MEDS: ACETAMINOPHEN 325 MG TABLET 650 MG PO (09:44)
--- NOTE | 2021-11-16 15:27 | PCOTNOTE ---
Patient refused OT this PM. She reports, I am not doing anything. I am refusing therapy. MS
[2021-11-16 16:00] VITALS: BP 152/97; PULSE 69; RESP 17; TEMP 36.2; O2SAT 98
[2021-11-16 19:31] VITALS: PULSE 69; RESP 17; O2SAT 98
[2021-11-16] MEDS: MELATONIN 3 MG TABLET PO (20:04)
[2021-11-16] MEDS: DOCUSATE SODIUM 100 MG CAPSULE PO (20:04)
[2021-11-16 23:45] VITALS: BP 126/76; PULSE 72; RESP 18; TEMP 36.6; O2SAT 97
[2021-11-17] MEDS: LEVOTHYROXINE SODIUM 25 MCG TABLET PO (05:30)
[2021-11-17] MEDS: LEVOTHYROXINE SODIUM 112 MCG TABLET PO (05:30)
[2021-11-17 08:00] VITALS: BP 148/69; PULSE 65; RESP 17; TEMP 36.6; O2SAT 97
[2021-11-17 09:28] VITALS: PULSE 65
[2021-11-17] MEDS: lisinopriL 20 MG TABLET 40 MG PO (09:28)
[2021-11-17] MEDS: METOPROLOL SUCCINATE EXT REL 50 MG TABCR 100 MG PO (09:28)
[2021-11-17] MEDS: PANTOPRAZOLE 40 MG TABLET PO ×2 (09:28→20:27)
[2021-11-17] MEDS: APIXABAN 2.5 MG TABLET PO ×2 (09:28→20:27)
[2021-11-17] MEDS: FUROSEMIDE 40 MG TABLET PO (09:30)
--- NOTE | 2021-11-17 12:00 | P.PNCROSS_ITS ---
Event Note Event Note Event Note: Patient complains of left thigh pain. Which is not new to her. Order qamar garnica.
[2021-11-17 16:00] VITALS: BP 136/84; PULSE 77; RESP 17; TEMP 36.6; O2SAT 98
[2021-11-17 19:19] VITALS: PULSE 77; RESP 17; O2SAT 98
[2021-11-17] MEDS: DICLOFENAC SODIUM 1% 100 GM GEL (*BKC) 1 APPLIC TOPICAL (20:27)
[2021-11-17] MEDS: MELATONIN 3 MG TABLET PO (20:27)
[2021-11-18] VITALS: BP 135/70; PULSE 65; RESP 16; TEMP 36.1; O2SAT 97
[2021-11-18] MEDS: LEVOTHYROXINE SODIUM 112 MCG TABLET PO (06:03)
[2021-11-18] MEDS: LEVOTHYROXINE SODIUM 25 MCG TABLET PO (06:03)
[2021-11-18 08:00] VITALS: BP 140/64; PULSE 80; RESP 18; TEMP 36.6; O2SAT 98
[2021-11-18 08:35] VITALS: PULSE 82
[2021-11-18] MEDS: PANTOPRAZOLE 40 MG TABLET PO ×2 (08:35→20:02)
[2021-11-18] MEDS: METOPROLOL SUCCINATE EXT REL 50 MG TABCR 100 MG PO (08:35)
[2021-11-18] MEDS: FUROSEMIDE 40 MG TABLET PO (08:35)
[2021-11-18] MEDS: DICLOFENAC SODIUM 1% 100 GM GEL (*BKC) 1 APPLIC TOPICAL ×4 (08:36→20:10)
[2021-11-18] MEDS: APIXABAN 2.5 MG TABLET PO ×2 (08:36→20:02)
[2021-11-18] MEDS: lisinopriL 20 MG TABLET 40 MG PO (08:36)
[2021-11-18 16:00] VITALS: BP 132/74; PULSE 78; RESP 18; TEMP 36.4; O2SAT 96
[2021-11-18] MEDS: MELATONIN 3 MG TABLET PO (20:02)
[2021-11-19] VITALS: BP 150/90; PULSE 68; RESP 16; TEMP 36.6; O2SAT 97
[2021-11-19] MEDS: LEVOTHYROXINE SODIUM 25 MCG TABLET PO (06:17)
[2021-11-19] MEDS: LEVOTHYROXINE SODIUM 112 MCG TABLET PO (06:17)
[2021-11-19 07:58] VITALS: BP 139/58; PULSE 57; RESP 16; TEMP 36.3; O2SAT 97
[2021-11-19 08:21] VITALS: PULSE 65
[2021-11-19] MEDS: lisinopriL 20 MG TABLET 40 MG PO (08:21)
[2021-11-19] MEDS: METOPROLOL SUCCINATE EXT REL 50 MG TABCR 100 MG PO (08:21)
[2021-11-19] MEDS: APIXABAN 2.5 MG TABLET PO ×2 (08:22→20:08)
[2021-11-19] MEDS: PANTOPRAZOLE 40 MG TABLET PO ×2 (08:23→20:08)
[2021-11-19] MEDS: FUROSEMIDE 40 MG TABLET PO (08:23)
[2021-11-19] MEDS: DICLOFENAC SODIUM 1% 100 GM GEL (*BKC) 1 APPLIC TOPICAL ×4 (08:24→20:09)
[2021-11-19] MEDS: ACETAMINOPHEN 325 MG TABLET 650 MG PO (09:07)
[2021-11-19 16:00] VITALS: BP 128/62; PULSE 60; RESP 16; TEMP 36.2; O2SAT 98
[2021-11-19] MEDS: MELATONIN 3 MG TABLET PO (20:08)
[2021-11-20] VITALS: BP 131/53; PULSE 61; RESP 20; TEMP 35.9; O2SAT 96
[2021-11-20] MEDS: LEVOTHYROXINE SODIUM 25 MCG TABLET PO (06:19)
[2021-11-20] MEDS: LEVOTHYROXINE SODIUM 112 MCG TABLET PO (06:19)
[2021-11-20 08:00] VITALS: BP 130/60; PULSE 66; RESP 16; TEMP 36.6; O2SAT 98
[2021-11-20] MEDS: lisinopriL 20 MG TABLET 40 MG PO (08:48)
[2021-11-20 08:49] VITALS: PULSE 78
[2021-11-20] MEDS: METOPROLOL SUCCINATE EXT REL 50 MG TABCR 100 MG PO (08:49)
[2021-11-20] MEDS: PANTOPRAZOLE 40 MG TABLET PO ×2 (08:49→20:05)
[2021-11-20] MEDS: FUROSEMIDE 40 MG TABLET PO (08:49)
[2021-11-20] MEDS: APIXABAN 2.5 MG TABLET PO ×2 (08:50→20:05)
[2021-11-20] MEDS: DICLOFENAC SODIUM 1% 100 GM GEL (*BKC) 1 APPLIC TOPICAL ×4 (08:53→20:05)
[2021-11-20 16:30] VITALS: BP 128/71; PULSE 61; RESP 16; TEMP 36.2; O2SAT 98
[2021-11-20 19:30] VITALS: PULSE 61; RESP 18; O2SAT 95
[2021-11-20] MEDS: MELATONIN 3 MG TABLET PO (20:05)
[2021-11-21] VITALS: BP 125/57; PULSE 57; RESP 18; TEMP 35.8; O2SAT 97
[2021-11-21] MEDS: LEVOTHYROXINE SODIUM 25 MCG TABLET PO (06:32)
[2021-11-21] MEDS: LEVOTHYROXINE SODIUM 112 MCG TABLET PO (06:32)
[2021-11-21 08:00] VITALS: BP 126/60; PULSE 60; RESP 16; TEMP 36.6
[2021-11-21] MEDS: FUROSEMIDE 40 MG TABLET PO (09:20)
[2021-11-21 09:29] VITALS: PULSE 78
[2021-11-21] MEDS: lisinopriL 20 MG TABLET 40 MG PO (09:29)
[2021-11-21] MEDS: METOPROLOL SUCCINATE EXT REL 50 MG TABCR 100 MG PO (09:29)
[2021-11-21] MEDS: APIXABAN 2.5 MG TABLET PO ×2 (09:30→21:29)
[2021-11-21] MEDS: DICLOFENAC SODIUM 1% 100 GM GEL (*BKC) 1 APPLIC TOPICAL ×4 (09:30→21:29)
[2021-11-21] MEDS: PANTOPRAZOLE 40 MG TABLET PO ×2 (09:30→21:29)
[2021-11-21 16:00] VITALS: BP 139/65; PULSE 56; RESP 15; TEMP 36.2; O2SAT 98
[2021-11-22] VITALS: BP 132/69; PULSE 59; RESP 14; TEMP 36.1; O2SAT 96
[2021-11-22] MEDS: LEVOTHYROXINE SODIUM 25 MCG TABLET PO (06:25)
[2021-11-22] MEDS: LEVOTHYROXINE SODIUM 112 MCG TABLET PO (06:25)
[2021-11-22 07:35] VITALS: BP 117/53; PULSE 67; RESP 16; TEMP 36.3; O2SAT 99
[2021-11-22 10:33] VITALS: PULSE 61
[2021-11-22] MEDS: METOPROLOL SUCCINATE EXT REL 50 MG TABCR 100 MG PO (10:33)
[2021-11-22] MEDS: ACETAMINOPHEN 325 MG TABLET 650 MG PO ×2 (10:34→19:32)
[2021-11-22] MEDS: FUROSEMIDE 40 MG TABLET PO (10:34)
[2021-11-22] MEDS: APIXABAN 2.5 MG TABLET PO ×2 (10:35→20:34)
[2021-11-22] MEDS: PANTOPRAZOLE 40 MG TABLET PO ×2 (10:35→20:34)
[2021-11-22] MEDS: DICLOFENAC SODIUM 1% 100 GM GEL (*BKC) 1 APPLIC TOPICAL ×3 (10:35→20:34)
[2021-11-22] MEDS: lisinopriL 20 MG TABLET 40 MG PO (10:35)
[2021-11-22 16:00] VITALS: BP 105/47; PULSE 61; RESP 16; TEMP 36.3; O2SAT 92
[2021-11-22] MEDS: MELATONIN 3 MG TABLET PO (20:34)
[2021-11-23] MEDS: LEVOTHYROXINE SODIUM 25 MCG TABLET PO (06:44)
[2021-11-23] MEDS: LEVOTHYROXINE SODIUM 112 MCG TABLET PO (06:44)
[2021-11-23 08:00] VITALS: BP 112/53; PULSE 64; RESP 16; TEMP 36.4; O2SAT 96
[2021-11-23] MEDS: PANTOPRAZOLE 40 MG TABLET PO ×2 (08:15→21:02)
[2021-11-23] MEDS: lisinopriL 20 MG TABLET 40 MG PO (08:16)
[2021-11-23 08:17] VITALS: PULSE 64
[2021-11-23] MEDS: METOPROLOL SUCCINATE EXT REL 50 MG TABCR 100 MG PO (08:17)
[2021-11-23] MEDS: FUROSEMIDE 40 MG TABLET PO (08:20)
[2021-11-23] MEDS: APIXABAN 2.5 MG TABLET PO ×2 (08:21→21:02)
[2021-11-23] MEDS: DICLOFENAC SODIUM 1% 100 GM GEL (*BKC) 1 APPLIC TOPICAL ×4 (08:21→21:05)
[2021-11-23] MEDS: DOCUSATE SODIUM 100 MG CAPSULE PO ×2 (09:38→21:02)
--- NOTE | 2021-11-23 09:46 | WPDPN ---
Progress Note: A&P Assessment and Plan (1) Atrial fibrillation with rapid ventricular response: Code(s): I48.91 - Unspecified atrial fibrillation Status: Acute Assessment and Plan: Rate controlled continue on Cardizem 120mg Daily monitor heart rate Follow up with Cardiology as a outpatient continue on anticoagulation (2) Cellulitis of leg, right: Code(s): L03.115 - Cellulitis of right lower limb Status: Acute Assessment and Plan: monitor leg for increased redness continue on oral medication monitor for increased swelling or pain (3) Acute UTI: Code(s): N39.0 - Urinary tract infection, site not specified Status: Acute Assessment and Plan: increase oral fluids monitor for S/S infection Cultures grew E coli Omnicef completed (4) COVID-19: Code(s): U07.1 - COVID-19 Status: Acute Assessment and Plan: Continue to wear mask Droplet isolation is no longer needed Continue to monitor for any s/s infection (5) CHF (congestive heart failure): Code(s): I50.9 - Heart failure, unspecified Status: Acute Assessment and Plan: Continue to monitor for S/S of CHF monitor for Shortness of breath (6) Weakness: Code(s): R53.1 - Weakness Status: Acute Assessment and Plan: PT/OT evaluate and treat Decreased awareness not sure if patient will be able to retain information conversation needed to be had with family on how much assistance they will be able to offer as if they are not able to complete ADL alf may be in her best intrest (7) Confusion: Code(s): R41.0 - Disorientation, unspecified Status: Acute Subjective Date/time seen: 11/23/21 09:46 Interval history: Patient only complaint is that she continues to experience pain in her left knee she also notes that she has not had a bowel movement in 2 days. Started stool softeners and laxative as needed to her regiment. The patient denies SOB, CP, palpitation, extremity numbness, lightheadedness, dizziness, diarrhea, chills, or fever. She also informed me that some days she is weaker than others in does not feel like she is doing her physical therapy as well. I informed patient that she can only do the best that she can. Review of Systems Review of Systems: All systems reviewed & are unremarkable except as noted in HPI and below Exam Narrative: GENERAL:Well-appearing, well-nourished, and in no acute distress. HEAD:Normocephalic, atraumatic. EYES: PERRLA and EOMI. ENT: Nares clear, no rhinorrhea or epistaxis. Mucous membranes moist. NECK: Supple. CHEST: Clear to auscultation. No respiratory distress. HEART: Regular rate and rhythm. Normal peripheral pulses. ABDOMEN: Soft, nontender, nondistended, normal active bowel sounds. EXTREMITIES: Normal range of motion. No edema. SKIN: Warm, dry, no rash. NEURO: No focal deficits. Alert x1-2 a lot of confusion with poor short term memory . Objective Data Vital Signs Vital Signs: Vital Signs - 24 hr 11/22/21 10:33 11/22/21 16:00 11/23/21 08:17 Temperature 97.3 F L Pulse Rate 61 61 64 Respiratory Rate 16 Blood Pressure 105/47 L Pulse Oximetry 92 Oxygen Delivery Room Air 11/23/21 08:00 Temperature 97.6 F Pulse Rate 64 Respiratory Rate 16 Blood Pressure 112/53 L Pulse Oximetry 96 Oxygen Delivery Room Air Intake/Output Intake/Output: Intake & Output 11/20/21 11/21/21 11/22/21 11/23/21 23:59 23:59 23:59 23:59 Intake Total 1360 1350 1160 870 Balance 1360 1350 1160 870 Meds/Results Medications: Active Medications Generic Name Dose Route Start Last Admin Trade Name Freq PRN Reason Stop Dose Admin Acetaminophen 650 mg 11/13/21 16:18 11/22/21 19:32 Acetaminophen 325 Mg Tablet PO 650 mg Q6H PRN Administration Pain or Fever Apixaban 2.5 mg 11/13/21 21:00 11/23/21 08:21 Apixaban 2.5 Mg Tablet PO 2.5
[2021-11-23] MEDS: ACETAMINOPHEN 325 MG TABLET 650 MG PO (14:43)
[2021-11-23 16:00] VITALS: BP 121/54; PULSE 56; RESP 18; TEMP 36.2; O2SAT 94
[2021-11-23] MEDS: MELATONIN 3 MG TABLET PO (21:02)
[2021-11-24] VITALS: BP 133/50; PULSE 58; RESP 18; TEMP 36.4; O2SAT 95
[2021-11-24 05:19] LABS: Hematocrit 33.3 % (35.0-42.0); Hemoglobin 10.8 g/dL (11.7-13.8); Mean Corpuscular HGB Conc 32.4 g/dL (32.0-36.0); Mean Corpuscular Hemoglobin 29.3 pg (27.0-31.0); Mean Corpuscular Volume 90.5 fL (78.0-102.0); Mean Platelet Volume 9.7 fl (9.2-11.8); Platelet Count Result 328 K/mm3 (150-420); Red Blood Count 3.68 M/mm3 (4.20-5.40); Red Cell Distribution Width 14.7 % (11.6-14.4); White Blood Count 5.8 K/mm3 (4.8-10.8)
[2021-11-24 05:30] LABS: Anion Gap 8 mmol/L (8-16); Blood Urea Nitrogen 44 mg/dL (7-18); Calcium 9.1 mg/dL (8.5-10.1); Carbon Dioxide 28 mmol/L (21-32); Chloride 100 mmol/L (98-108); Estimated CRCL calculation 20 ml/min; Estimated Glomerular Filt Rate 25; Glucose 107 mg/dL (70-99); Osmolality Calculated 293 mOsm/kg (285-295); Potassium 4.3 mmol/L (3.5-5.1); Sodium 136 mmol/L (136-145)
[2021-11-24] MEDS: LEVOTHYROXINE SODIUM 25 MCG TABLET PO (06:25)
[2021-11-24] MEDS: LEVOTHYROXINE SODIUM 112 MCG TABLET PO (06:25)
[2021-11-24 08:00] VITALS: BP 118/62; PULSE 61; RESP 16; TEMP 36.3; O2SAT 98
[2021-11-24] MEDS: ACETAMINOPHEN 325 MG TABLET 650 MG PO (08:08)
[2021-11-24] MEDS: PANTOPRAZOLE 40 MG TABLET PO ×2 (08:08→20:49)
[2021-11-24] MEDS: DICLOFENAC SODIUM 1% 100 GM GEL (*BKC) 1 APPLIC TOPICAL ×4 (08:08→20:49)
[2021-11-24 08:09] VITALS: PULSE 61
[2021-11-24] MEDS: METOPROLOL SUCCINATE EXT REL 50 MG TABCR 100 MG PO (08:09)
[2021-11-24] MEDS: FUROSEMIDE 40 MG TABLET PO (08:10)
[2021-11-24] MEDS: DOCUSATE SODIUM 100 MG CAPSULE PO ×2 (08:10→20:49)
[2021-11-24] MEDS: lisinopriL 20 MG TABLET 40 MG PO (08:10)
[2021-11-24] MEDS: APIXABAN 2.5 MG TABLET PO ×2 (08:10→20:49)
[2021-11-24 15:49] VITALS: BP 110/69; PULSE 60; RESP 18; TEMP 36.4; O2SAT 97
[2021-11-24 23:02] VITALS: BP 123/76; PULSE 57; RESP 16; TEMP 36.5; O2SAT 96
--- NOTE | 2021-11-25 00:23 | PC.NURSE ---
Pt transferred from bed to commode via walker, gait belt, and 2 assist of héctor RN and Yas Carranza RN. Janet attempted to void, but no longer felt the urge to go once on the commode. Pt then returned back to bed with assistance of Lynne GRIJALVA. Pt raised up in bed w/feet elevated by pillow. Call light placed within reach and bed in lowest position w/3side rails raised.
[2021-11-25] MEDS: LEVOTHYROXINE SODIUM 25 MCG TABLET PO (06:04)
[2021-11-25] MEDS: LEVOTHYROXINE SODIUM 112 MCG TABLET PO (06:04)
[2021-11-25 07:56] VITALS: BP 121/57; PULSE 59; RESP 18; TEMP 36.4; O2SAT 96
[2021-11-25 09:49] VITALS: PULSE 59
[2021-11-25] MEDS: METOPROLOL SUCCINATE EXT REL 50 MG TABCR 100 MG PO (09:49)
[2021-11-25] MEDS: DICLOFENAC SODIUM 1% 100 GM GEL (*BKC) 1 APPLIC TOPICAL ×4 (09:49→20:40)
[2021-11-25] MEDS: APIXABAN 2.5 MG TABLET PO ×2 (09:50→20:39)
[2021-11-25] MEDS: DOCUSATE SODIUM 100 MG CAPSULE PO ×2 (09:50→20:39)
[2021-11-25] MEDS: PANTOPRAZOLE 40 MG TABLET PO ×2 (09:50→20:40)
[2021-11-25] MEDS: lisinopriL 20 MG TABLET 40 MG PO (09:50)
[2021-11-25] MEDS: FUROSEMIDE 40 MG TABLET PO (09:50)
[2021-11-25] MEDS: ACETAMINOPHEN 325 MG TABLET 650 MG PO (11:51)
[2021-11-25 16:20] VITALS: BP 116/54; PULSE 63; RESP 18; TEMP 36.4; O2SAT 96
--- NOTE | 2021-11-25 20:51 | PC.NURSE ---
Pt's dentures both uppers&lowers removed, rinsed, and placed in cup by the sink. Barrier cream applied to pt's coccyx to prevent skin breakdown; assistance provided by Delphine Rojo RN. Bed then placed in lowest position for pt safety. Side railsx3 and call light within reach.
--- NOTE | 2021-11-25 22:15 | PC.NURSE ---
Pt transferred from bed to commode. Pt re-educted on the importance of getting up and moving around due to pt requesting the bed tabares despite being directed to use the commode. Pt then got up w/1 assist and gait belt. Pt stated she was unable to void then returned back to bed. Pt raised up in bed w/assistance of Sofía Brcok RN. Bed placed in lowest position for pt safety. Call light within reach side railsx3.
--- NOTE | 2021-11-25 22:28 | PC.NURSE ---
Addendum entered by Michel Moreno RN 11/26/21 02:05: Pt c/o indigestion; charge nurse notified of findings. Charge nurse contacted the AUTOMATED PROCESS OPERATOR for a prn to aid pt. Original Note: Pt c/o indigestion; charge nurse notified of findings. Charge nurse contacted the AUTOMATED PROCESS OPERATOR for a prn to aid pt. AUTOMATED PROCESS OPERATOR ordered medication and this RN now awaiting approval from pharmacy.
[2021-11-25 23:03] VITALS: BP 118/71; PULSE 60; RESP 15; TEMP 36.8; O2SAT 95
[2021-11-26] MEDS: LEVOTHYROXINE SODIUM 112 MCG TABLET PO (06:18)
[2021-11-26] MEDS: LEVOTHYROXINE SODIUM 25 MCG TABLET PO (06:18)
[2021-11-26] MEDS: MAG HYDROX/AL HYDROX/SIMETH 30 ML UDC PO (06:19)
[2021-11-26 08:00] VITALS: BP 109/54; PULSE 60; RESP 16; TEMP 35.9; O2SAT 97
[2021-11-26 09:02] VITALS: PULSE 60
[2021-11-26] MEDS: DICLOFENAC SODIUM 1% 100 GM GEL (*BKC) 1 APPLIC TOPICAL ×4 (09:02→20:55)
[2021-11-26] MEDS: METOPROLOL SUCCINATE EXT REL 50 MG TABCR 100 MG PO (09:02)
[2021-11-26] MEDS: PANTOPRAZOLE 40 MG TABLET PO ×2 (09:03→20:55)
[2021-11-26] MEDS: FUROSEMIDE 40 MG TABLET PO (09:03)
[2021-11-26] MEDS: lisinopriL 20 MG TABLET 40 MG PO (09:03)
[2021-11-26] MEDS: DOCUSATE SODIUM 100 MG CAPSULE PO ×2 (09:03→20:55)
[2021-11-26] MEDS: APIXABAN 2.5 MG TABLET PO ×2 (09:03→20:55)
[2021-11-26 16:00] VITALS: BP 129/62; PULSE 66; RESP 18; TEMP 36.3; O2SAT 98
--- NOTE | 2021-11-26 20:00 | PC.NURSE ---
Pt sitting in chair on assessment, pt wanting to use commode, pt assisted c SBA and use of gait bed from chair to commode and then to bed. Pt positioned herself in bed and call reynolds in reach. Pt encouraged to call if needed. Pt denies any c/o at this time.
[2021-11-27] VITALS: BP 115/69; PULSE 66; RESP 18; TEMP 36.4; O2SAT 99
--- NOTE | 2021-11-27 00:09 | PC.NURSE ---
Pt assisted to BSC c use of gait belt and SBA. Pt tolerated well and then assisted back to bed in position of comfort. Pt has call reynolds within reach, no c/o at this time.
[2021-11-27] MEDS: LEVOTHYROXINE SODIUM 25 MCG TABLET PO (06:25)
[2021-11-27] MEDS: LEVOTHYROXINE SODIUM 112 MCG TABLET PO (06:25)
--- NOTE | 2021-11-27 06:48 | PC.NURSE ---
Pt assisted to BSC, then up in chair c SBA and use of gait belt, pt gait slow and steady. Feet elevated in chair, call reynolds at side.
[2021-11-27 07:38] VITALS: BP 135/59; PULSE 58; PULSE 59; RESP 18; TEMP 36.1; O2SAT 99
[2021-11-27] MEDS: DICLOFENAC SODIUM 1% 100 GM GEL (*BKC) 1 APPLIC TOPICAL (08:14)
[2021-11-27 08:15] VITALS: PULSE 58
[2021-11-27] MEDS: PANTOPRAZOLE 40 MG TABLET PO (08:15)
[2021-11-27] MEDS: lisinopriL 20 MG TABLET 40 MG PO (08:15)
[2021-11-27] MEDS: METOPROLOL SUCCINATE EXT REL 50 MG TABCR 100 MG PO (08:15)
[2021-11-27] MEDS: DOCUSATE SODIUM 100 MG CAPSULE PO (08:16)
[2021-11-27] MEDS: FUROSEMIDE 40 MG TABLET PO (08:17)
[2021-11-27] MEDS: APIXABAN 2.5 MG TABLET PO (08:17)
--- NOTE | 2021-11-27 09:34 | P.DS_ITS ---
DS: Admitting Diagnosis Discharge Date 11/27/2021 Admitting Diagnosis UTI, Weakness, REhab DS: Discharge Diagnosis Discharge Diagnosis (1) Confusion: Code(s): R41.0 - Disorientation, unspecified Status: Acute Assessment and Plan: * PLEASANTLY CONFUSED (2) Elevated troponin: Code(s): R77.8 - Other specified abnormalities of plasma proteins Status: Acute Assessment and Plan: * TROP HAVE RESOLVED * CONTINUE TO MONITOR ANYOTHER LAB ABNORMALITIES (3) Atrial fibrillation with rapid ventricular response: Code(s): I48.91 - Unspecified atrial fibrillation Status: Acute Assessment and Plan: * Rate controlled * continue on Cardizem 120mg Daily * monitor heart rate * Follow up with Cardiology as a outpatient * continue on anticoagulation (4) Cellulitis of leg, right: Code(s): L03.115 - Cellulitis of right lower limb Status: Acute Assessment and Plan: * monitor leg for increased redness * continue on oral medication * monitor for increased swelling or pain (5) Acute UTI: Code(s): N39.0 - Urinary tract infection, site not specified Status: Acute Assessment and Plan: * increase oral fluids * monitor for S/S infection * Cultures grew E coli Omnicef completed (6) COVID-19: Code(s): U07.1 - COVID-19 Status: Acute Assessment and Plan: * Continue to wear mask * Droplet isolation is no longer needed * Continue to monitor for any s/s infection (7) CHF (congestive heart failure): Code(s): I50.9 - Heart failure, unspecified Status: Acute Assessment and Plan: * Continue to monitor for S/S of CHF * monitor for Shortness of breath (8) Weakness: Code(s): R53.1 - Weakness Status: Acute Assessment and Plan: * PT/OT evaluate and treat * Decreased awareness not sure if patient will be able to retain information * conversation needed to be had with family on how much assistance they will be able to offer as if they are not able to complete ADL usp may be in her best intrest * DS: Summary Hospital Course Hospital Course: This is a 85 year old female that is being discharged from our swing bed today. Patient was Diagnosed a couple of day prior to admission at [facility] with COVID by home test she was retested on 11/08/2021 and she was positive for COVID. Patient had Encephalopathy w some Dementia. Mrs. Galvez sodium has remained stable and was 136 on discharged, potassium 4.3, BUN 44, creatinine 1.93, WBCs 5.8, hemoglobin 10.8, Hemaquet 33.3, platelets 328 patient denies any pain no nausea vomiting and/or diarrhea patient has an occasional cough that is nonproductive lungs are clear.? Patient has remained afebrile has to be assisted with eating Patient will need 24 hour care. Time Spent with Patient Time attestation: Total time spent providing and/or coordinating discharge services: Exam Narrative: GENERAL:Well-appearing, well-nourished, and in no acute distress. HEAD:Normocephalic, atraumatic. EYES: PERRLA and EOMI. ENT: Nares clear, no rhinorrhea or epistaxis. Mucous membranes moist. NECK: Supple. CHEST: Clear to auscultation. No respiratory distress. HEART: Regular rate and rhythm. Normal peripheral pulses. ABDOMEN: Soft, nontender, nondistended, normal active bowel sounds. EXTREMITIES: Normal range of motion. No edema. SKIN: Warm, dry, no rash. NEURO: No focal deficits. Alert x1-2 a lot of confusion with poor short term memory .
--- NOTE | 2021-11-27 09:34 | PM.DS ---
DS: Admitting Diagnosis Discharge Date 11/27/2021 Admitting Diagnosis UTI, Weakness, REhab DS: Discharge Diagnosis Discharge Diagnosis (1) Confusion: Code(s): R41.0 - Disorientation, unspecified Status: Acute Assessment and Plan: PLEASANTLY CONFUSED (2) Elevated troponin: Code(s): R77.8 - Other specified abnormalities of plasma proteins Status: Acute Assessment and Plan: TROP HAVE RESOLVED CONTINUE TO MONITOR ANYOTHER LAB ABNORMALITIES (3) Atrial fibrillation with rapid ventricular response: Code(s): I48.91 - Unspecified atrial fibrillation Status: Acute Assessment and Plan: Rate controlled continue on Cardizem 120mg Daily monitor heart rate Follow up with Cardiology as a outpatient continue on anticoagulation (4) Cellulitis of leg, right: Code(s): L03.115 - Cellulitis of right lower limb Status: Acute Assessment and Plan: monitor leg for increased redness continue on oral medication monitor for increased swelling or pain (5) Acute UTI: Code(s): N39.0 - Urinary tract infection, site not specified Status: Acute Assessment and Plan: increase oral fluids monitor for S/S infection Cultures grew E coli Omnicef completed (6) COVID-19: Code(s): U07.1 - COVID-19 Status: Acute Assessment and Plan: Continue to wear mask Droplet isolation is no longer needed Continue to monitor for any s/s infection (7) CHF (congestive heart failure): Code(s): I50.9 - Heart failure, unspecified Status: Acute Assessment and Plan: Continue to monitor for S/S of CHF monitor for Shortness of breath (8) Weakness: Code(s): R53.1 - Weakness Status: Acute Assessment and Plan: PT/OT evaluate and treat Decreased awareness not sure if patient will be able to retain information conversation needed to be had with family on how much assistance they will be able to offer as if they are not able to complete ADL senior living may be in her best intrest DS: Summary Hospital Course Hospital Course: This is a 85 year old female that is being discharged from our swing bed today. Patient was Diagnosed a couple of day prior to admission at [facility] with COVID by home test she was retested on 11/08/2021 and she was positive for COVID. Patient had Encephalopathy w some Dementia. Mrs. Galvez sodium has remained stable and was 136 on discharged, potassium 4.3, BUN 44, creatinine 1.93, WBCs 5.8, hemoglobin 10.8, Hemaquet 33.3, platelets 328 patient denies any pain no nausea vomiting and/or diarrhea patient has an occasional cough that is nonproductive lungs are clear.? Patient has remained afebrile has to be assisted with eating Patient will need 24 hour care. Time Spent with Patient Time attestation: Total time spent providing and/or coordinating discharge services: Exam Narrative: GENERAL:Well-appearing, well-nourished, and in no acute distress. HEAD:Normocephalic, atraumatic. EYES: PERRLA and EOMI. ENT: Nares clear, no rhinorrhea or epistaxis. Mucous membranes moist. NECK: Supple. CHEST: Clear to auscultation. No respiratory distress. HEART: Regular rate and rhythm. Normal peripheral pulses. ABDOMEN: Soft, nontender, nondistended, normal active bowel sounds. EXTREMITIES: Normal range of motion. No edema. SKIN: Warm, dry, no rash. NEURO: No focal deficits. Alert x1-2 a lot of confusion with poor short term memory . Discharge Plan Discharge Attending physician on discharge: Geoffrey Macias Consulting providers: Patricia Yepez ; Markos Romero Discharging Clinician: Patricia Yepez Anticipated Discharge Date/Time: 11/27/21 09:26 Patient Disposition: [facility] Long-Term[facility]Asst Living Activity: may shower and as tolerated Diet: regular and heart healthy Discharge Instructions: Per Care Coordination: Pt to discharge to [facility]
--- NOTE | 2021-11-27 09:37 | PC.NURSE ---
Call placed to [facility], , report given to nurse Rueda. Awaiting son for transfer.
--- NOTE | 2021-11-27 10:50 | PC.NURSE ---
Pt discharged to [facility] at 1050. Transported via family car via son. Home meds returned, discharge instructions given to pt and son, both states understanding. Report called to Marybeth at [phone].
--- NOTE | 2021-11-30 10:45 | PC.NURSE ---
[facility] nurse states they received and understood the discharge instructions.
== END 2021-11-27 10:50 | DRG 947 ==
PROVIDERS: Nurse Practitioner; Admitting Provider Internal Medicine; PCP Internal Medicine; Visit Provider Internal Medicine
DX: R53.1 Weakness (principal); U07.1 COVID-19; N39.0 Urinary tract infection, site not specified; L03.115 Cellulitis of right lower limb; I48.20 Chronic atrial fibrillation, unspecified; I11.0 Hypertensive heart disease with heart failure; I50.9 Heart failure, unspecified; E03.9 Hypothyroidism, unspecified; R41.0 Disorientation, unspecified
CPT/HCPCS: 36415; 80048; 85027; 97110; 97161; 97165; 97530; 97535; A9270

== ENCOUNTER 2022-01-08 06:16 | Emergency (ER) | payer MEDICARE, SELFPAY ==
--- NOTE | ~2022-01-08 | XR_ITS ---
EXAMINATION: XR chest 2V DATE: 01/08/2022 07:09 INDICATION: Fall. TECHNIQUE: Frontal and lateral views of the chest were obtained. COMPARISON: Chest single view 11/08/2021, chest CT 11/08/2021 FINDINGS: There is no pneumonia, pleural effusion, or pneumothorax. The heart size is normal. There i s a left shoulder arthroplasty. There is a moderate-sized hiatal hernia. IMPRESSION: 1. Moderate-sized hiatal hernia. Reviewed, dictated and finalized at location A.
--- NOTE | ~2022-01-08 | XR_ITS ---
EXAMINATION: XR hand RT min 3V DATE: 01/08/2022 07:09 INDICATION: Right hand injury. TECHNIQUE: 3 views of right hand were obtained. COMPARISON: None. FINDINGS: There is an oblique extra-articular fracture of base of fifth proximal phalanx. The distal fracture fragment demonstrates impaction, 5 degrees radial angulation, and at least 20 degrees dorsal angulation. There is an old healed fracture of distal radius. There is 30 degrees dorsal tilt of the distal articular surface. There is moderate osteoarthritis of triscaphe joint and mild osteoarthriti s of first carpometacarpal joint, first metacarpophalangeal joint, and many of the interphalangeal amari ints. There is moderate osteoarthritis of second-fifth distal interphalangeal joints. IMPRESSION: 1. Oblique extra-articular fracture of base of fifth proximal phalanx. 2. Old healed fracture of distal radius with malunion. 3. Polyarticular osteoarthritis. Reviewed, dictated and finalized at location A.
--- NOTE | ~2022-01-08 | CT_ITS ---
EXAMINATION: CT brain wo con DATE: 01/08/2022 07:18 INDICATION: Head injury. TECHNIQUE: Computed tomography (CT) of the head was performed without intravenous contrast. The mA wa s adjusted according to patient size. Iterative reconstruction technique was employed. The dose-lengt h product was 605.33 mGy-cm. COMPARISON: None FINDINGS: There are old infarcts in the cerebellum bilaterally. There are old infarcts in the bilater al thalami and basal ganglia. There are scattered areas of low attenuation in the cerebral white aby er. There is no intracranial hemorrhage, acute infarction, or abnormal intracranial mass lesion. The ventricles are normal in size. There are likely changes of ocular lens replacement surgeries. There i s a left periorbital hematoma. The mastoid air cells are normal. There is mucosal thickening in the p aranasal sinuses. IMPRESSION: 1. Old infarcts in the cerebellum, thalami, and bilateral basal ganglia. 2. Moderate nonspecific cerebral white matter disease, which likely represents chronic small vessel i schemic disease. Reviewed, dictated and finalized at location A. IMPRESSION: 1. Old infarcts in the cerebellum, thalami, and bilateral basal ganglia. 2. Moderate nonspecific cerebral white matter disease, which likely represents chronic small vessel ischemic disease.
--- NOTE | ~2022-01-08 | CT_ITS ---
EXAMINATION: CT cervical spine wo con DATE: 01/08/2022 07:19 INDICATION: Head injury. TECHNIQUE: Computed tomography (CT) of the cervical spine was performed without intravenous contrast. Automated exposure control and iterative reconstruction technique were employed. The dose-length pro duct was 366.98 mGy-cm. COMPARISON: None FINDINGS: There is 6 degrees dextrocurvature of cervical spine. There is 2 mm anterolisthesis of C5 o n C6 and C6 on C7. Vertebral body heights are normal. There is severely decreased disc height at C3-C 4, mildly decreased disc height at C5-C6, and moderately decreased disc height at C6-C7. The followin g disc levels are specifically discussed: C2-C3: There is mild bilateral uncovertebral joint osteoarthritis. There is moderate right and severe left facet joint osteoarthritis. There is no neural foraminal stenosis. There is no central canal st enosis. C3-C4: There is severe bilateral uncovertebral joint osteoarthritis. There is severe bilateral facet joint osteoarthritis. There is moderate bilateral neural foraminal stenosis. There is mild central ca nal stenosis. C4-C5: There is moderate bilateral uncovertebral joint osteoarthritis. There is severe bilateral face t joint osteoarthritis. There is mild bilateral neural foraminal stenosis. There is mild central dylan l stenosis. C5-C6: There is severe right and mild left uncovertebral joint osteoarthritis. There is moderate righ t and severe left facet joint osteoarthritis. There is mild right neural foraminal stenosis. There is mild central canal stenosis. C6-C7: There is severe right and moderate left uncovertebral joint osteoarthritis. There is severe bi lateral facet joint osteoarthritis. There is mild right neural foraminal stenosis. There is mild cent ral canal stenosis. C7-T1: There is no uncovertebral joint osteoarthritis. There is mild bilateral facet joint osteoarthr itis. There is no neural foraminal stenosis. There is no central canal stenosis. IMPRESSION: 1. No fracture. 2. Severe cervical spondylosis. Reviewed, dictated and finalized at location A.
[2022-01-08 06:16] VITALS: BP 133/47; PULSE 72; RESP 16; TEMP 36.3; O2SAT 100
[2022-01-08 06:21] VITALS: BP 133/47; RESP 20; O2SAT 98
[2022-01-08 06:31] VITALS: BP 149/50; PULSE 67; RESP 19; O2SAT 99
--- NOTE | 2022-01-08 06:54 | ED.FALL ---
HPI - Fall General Chief Complaint: Fall <DO Hans Chiu Last Filed: 01/08/22 07:16> Stated Complaint: fall <DO Hans Chiu Last Filed: 01/08/22 07:16> Time Seen by Provider: 01/08/22 06:18 <DO Hans Chiu Last Filed: 01/08/22 07:16> Source: RN notes reviewed <DO Hans Chiu Last Filed: 01/08/22 07:16> History of Present Illness HPI Narrative: Patient presents emergency room from [facility] via EMS for fall. Patient states that she was reaching for her pillow this morning when she fell out of bed hitting her head on the side table she notes a large contusion over the left side of her head also notes pain to her right fifth digit she denies any loss of consciousness she denies any other trauma or injury patient is currently awake and alert x2 denies chest pain shortness breath abdominal pain nausea vomit <DO Hans Chiu Last Filed: 01/08/22 07:16> Related Data Home Medications: Home Medications Medication Instructions Recorded Confirmed apixaban 2.5 mg tablet (Eliquis) mg 01/08/22 diltiazem HCl 120 mg tablet mg 01/08/22 furosemide 20 mg tablet mg 01/08/22 levothyroxine 112 mcg tablet mcg 01/08/22 lisinopril 40 mg tablet mg 01/08/22 metoprolol succinate 100 mg mg PO 01/08/22 tablet,extended release 24 hr omeprazole 20 mg capsule,delayed mg 01/08/22 release trospium 20 mg tablet mg 01/08/22 <Vasiliy Fox DO - Last Filed: 01/08/22 07:16> Allergies/Adverse Reactions: Allergies Allergy/AdvReac Type Severity Reaction Status Date / Time No Known Allergies Allergy Mild Unverified 11/08/21 11:38 <DO Hans Chiu Last Filed: 01/08/22 07:16> Review of Systems Review of Systems: Gen.: Denies fevers or chills Eyes: Denies eye pain or visual change ENT: Denies congestion Respiratory: Denies shortness of breath or cough CV: Denies chest pain or palpitations GI: Denies abdominal pain nausea, emesis or diarrhea Musculoskeleta see HPI Neuro reports frontal headache Skin: Denies rash Except as documented, all other systems reviewed and negative <Vasiliy Fox DO - Last Filed: 01/08/22 07:16> [facility] Past Medical History Medical History: Medical History History of hypertension Hypothyroidism <Vasiliy Fox DO - Last Filed: 01/08/22 07:16> Surgical History Surgical History: Surgical History History of appendectomy History of hysterectomy History of open reduction and internal fixation (ORIF) procedure Left arm <Vasiliy Fox DO - Last Filed: 01/08/22 07:16> Social History Social History: Social History Smoking status: Never smoker Second hand tobacco smoke exposure: No Alcohol intake: never Substance use: never Gender identity (if verbalized by the patient): Female Spiritual care concerns: No <Vasiliy Fox DO - Last Filed: 01/08/22 07:16> Exam Narrative: APPEARANCE: No acute distress, nontoxic, resting in bed EYES: EOMI, PERRL left eye is swollen shut but is able to be held open there is no conjunctival erythema full range of motion the eye HEENT: Normocephalic, large swelling and ecchymosis over the left eyebrow and forehead nares patent full range of motion of the jaw Neck: Supple no midline tenderness palpation tender palpation bilateral paravertebral C5-7 RESPIRATORY: No respiratory distress Clear to auscultation bilaterally with no rhonchi wheezing or rales. CARDIOVASCULAR: Regular rate and rhythm without murmurs rubs or gallops. ABDOMINAL: Soft, nontender, nondistended, no rebound or guarding MUSCULOSKELETAl: Moves all extremities. No clubbing, cyanosis or edema. No tenderness of the left upper extremity bilateral lower extremities. No tenderness of the right shoulder elbow or wrist tender to
[2022-01-08 08:02] VITALS: BP 162/85; PULSE 66; RESP 17; O2SAT 98
--- NOTE | 2022-01-08 08:52 | PC.NURSE ---
Patient care report called to Lidia nurse at [facility]. All questions answered at this time. Awaiting EMS arrival for transfer.
--- NOTE | 2022-01-08 09:15 | PC.NURSE ---
Splint applied to patient's right 5th digit.
== END 2022-01-08 09:48 ==
PROVIDERS: Emergency Provider Emergency Medicine; PCP Internal Medicine
DX: S00.93XA Contusion of unspecified part of head, initial encounter (principal); S62.616A Displaced fracture of proximal phalanx of right little finger, initial encounter for closed fracture; W06.XXXA Fall from bed, initial encounter; I10 Essential (primary) hypertension; E03.9 Hypothyroidism, unspecified; Z79.01 Long term (current) use of anticoagulants
CPT/HCPCS: 29130; 70450; 71046; 72125; 73130; 99284

== ENCOUNTER 2022-08-01 19:56 | Inpatient (IN) | payer MEDICARE, MEDICAID, SELFPAY ==
--- NOTE | ~2022-08-01 | XR_ITS ---
EXAM: [id number] DATE: 08/01/2022 21:11 HISTORY: R.LEG R.FOOT PAIN . COMPARISON: None available. FINDINGS: Uncomplicated appearing right knee arthroplasty Decreased mineralization. No fracture or d islocation. No lytic or blastic lesion. Joint spaces are maintained. No erosion or periosteal change. Mild vascular calcification. Small volume joint effusion. IMPRESSION: No acute osseous finding in the right knee. No radiographic evidence of hardware-related complication. Reviewed, dictated and finalized at location K. IMPRESSION: No acute osseous finding in the right knee. No radiographic evidenc e of hardware-related complication.
--- NOTE | ~2022-08-01 | XR_ITS ---
Portable chest x-ray Comparison: 01/08/2022 Clinical History: Weakness Findings: Lungs are clear, without focal consolidation or pleural effusion. Cardiomediastinal silho uette is stable. Left shoulder arthroplasty noted. Impression: Clear lungs. Reviewed, dictated and finalized at location . Impression: Clear lungs.
--- NOTE | ~2022-08-01 | XR_ITS ---
EXAMINATION: XR hip BI 2V w AP pelvis DATE: 08/02/2022 14:41 INDICATION: Right pelvic pain. TECHNIQUE: An anteroposterior view of the pelvis and 2 views of each hip were obtained. COMPARISON: None. FINDINGS: There are old healed fractures of right parasymphyseal pubis and right inferior pubic ramus . No acute fracture. There is mild osteoarthritis of the hips. There is moderate lumbar spondylosis. IMPRESSION: 1. Mild osteoarthritis of the hips. Reviewed, dictated and finalized at location A.
--- NOTE | ~2022-08-01 | MR_ITS ---
EXAMINATION: MR hip RT wo con DATE: 08/03/2022 16:24 INDICATION: Right hip pain. TECHNIQUE: Magnetic resonance imaging (MRI) of the right hip was performed without intravenous contra st. COMPARISON: Pelvis and hip radiographs 08/02/2022 FINDINGS: Bone alignment is normal. There are old fracture deformities of the right parasymphyseal pubis and ri ght inferior pubic ramus. There are insufficiency fractures in the inferior sacrum with edema-like ma rrow signal intensity. There is moderate osteoarthritis of the hips. There is a near complete tear of right iliopsoas tendon near its distal attachment. There is edema in the iliopsoas muscles bilateral ly, right worse than left, consistent with strains. There is a partial tear of right gluteus minimus tendon. Right gluteus medius tendon is normal. There is moderate fatty atrophy of the bilateral glute us minimus muscle bellies and mild fatty atrophy of the bilateral gluteus medius muscle bellies. Ther e is moderate right trochanteric bursitis and mild left trochanteric bursitis. IMPRESSION: 1. Acute versus subacute insufficiency fractures of the inferior sacrum. 2. Moderate osteoarthritis of the hips. 3. Near complete tear of right iliopsoas tendon. 4. Bilateral mild iliopsoas muscle strains, right worse than left. Reviewed, dictated and finalized at location A.
--- NOTE | ~2022-08-01 | US_ITS ---
Duplex Sonography of the right extremity: Indication: Pain Findings: Sagittal and transverse B-mode images as well as color-flow imaging were performed on the r ight femoral and popliteal veins. B-mode examination was done without and with compression in the tr ansverse plane. There is good visualization of the common femoral, proximal profunda femoral, superf icial femoral, greater saphenous, and popliteal veins. Normal flow was seen on color-flow imaging. N ormal compressibility was demonstrated. Visualized calf veins are also patent. Impression: No evidence of deep vein thrombosis involving the right femoral, greater saphenous, superficial femor al, or popliteal veins. Reviewed, dictated and finalized at location M. Impression: No evidence of deep vein thrombosis involving the right femoral, greater saphen ous, superficial femoral, or popliteal veins.
[2022-08-01 20:14] VITALS: BP 137/102; PULSE 63; RESP 16; TEMP 36.8; O2SAT 99
[2022-08-02] VITALS (8 sets, daily range): BP systolic 96–153; BP diastolic 50–69; PULSE 58–78; RESP 18–20; TEMP 35.9–36.6; O2SAT 98–100; BMI 32.2
--- NOTE | 2022-08-02 02:43 | ECG_ITS ---
Measurements Intervals [place] Rate: 61 P: [place]: 0 QRS: 0 QRSD: 114 T: 11 QT: 432 QTc: 436 Interpretive Statements SINUS RHYTHM WITH FIRST DEGREE AV BLOCK LOW QRS VOLTAGE IN PRECORDIAL LEADS INTRAVENTRICULAR CONDUCTION DELAY BORDERLINE ST-T WAVE ABNORMALITY- INFERIOR LEADS BASELINE ARTIFACT- I, II, III, AVR, AVL, AVF, V1-V6 BORDERLINE ECG COMPARED TO ECG 11/08/2021 12:33:34 SINUS RHYTHM NOW PRESENT INTRAVENTRICULAR CONDUCTION DELAY NOW PRESENT Electronically Signed On 08-02-2022 6:39:38 CDT by Se Eddy D.O.
--- NOTE | 2022-08-02 03:20 | PC.NURSE ---
Report given to MATTHEW Don.
[2022-08-02 03:37] LABS: Basophils Percent Auto 0.3 % (0.2-1.2); Eosinophils Absolute Auto 0.2 K/mm3 (0-0.3); Eosinophils Percent Auto 2.5 % (0-4.4); Hematocrit 31.5 % (37.0-47.0); Hemoglobin 10.2 g/dL (12.0-15.0); Immature Granulocyte Absolute 0.02 K/mm3 (0.00-0.031); Immature Granulocyte Percent A 0.3 % (0-0.5); Lymphocytes Percent Auto 11.7 % (18.3-44.2); Mean Corpuscular HGB Conc 32.4 g/dl (32-36); Mean Corpuscular Hemoglobin 31.1 pg (26-34); Mean Platelet Volume 9.8 fl (7.4-10.4); Monocytes Absolute Auto 0.8 K/mm3 (0.1-0.6); Monocytes Percent Auto 10.4 % (2.6-8.5); Neutrophils Absolute Auto 5.8 K/mm3 (1.3-6.7); Neutrophils Percent Auto 74.8 % (45.5-73.1); Platelet Count Result 220 k/mm3 (150-375); Red Blood Count 3.28 M/mm3 (4.2-5.4); Red Cell Distribution Width 13.6 % (11.5-14.5); White Blood Count 7.7 K/mm3 (4.5-10.0)
--- NOTE | 2022-08-02 03:44 | PC.NURSE ---
0315 Assumed pt care from Leah Tran RN
[2022-08-02 03:47] LABS: INR 1.1; Prothrombin Time 14.2 Seconds (11.1-14.7)
[2022-08-02 03:48] LABS: Alanine Aminotransferase 20 U/L (6-35); Albumin Level 4.3 g/dL (3.5-5.1); Alkaline Phosphatase 111 U/L (38-126); Anion Gap 8 mmol/L (8-16); Aspartate Amino Transferase 24 U/L (14-36); Bilirubin,Total 0.5 mg/dL (0.2-1.3); Blood Urea Nitrogen 69 mg/dL (7-17); Carbon Dioxide 25 mmol/L (22-30); Chloride 103 mmol/L (98-107); Estimated CRCL calculation 24 ml/min; Estimated Glomerular Filt Rate 33; Glucose 115 mg/dL (65-110); Magnesium 2.6 mg/dL (1.6-2.3); Partial Thromboplastin Time 30.1 SECONDS (22.3-36.8); Potassium 4.6 mmol/L (3.4-5.0); Sodium 136 mmol/L (137-145)
[2022-08-02 04:00] LABS: NT Pro B Type Natriuretic Pept 212 pg/mL (19.9-100); Troponin I < 0.012 ng/mL (0.000-0.034)
[2022-08-02 04:51] LABS: Appearance Urine Clear (Clear); Bilirubin Urine Negative (Negative); Blood Urine Negative (Negative); Color Urine Yellow (Yellow); Glucose Urine UA 2+ mg/dL (Negative); Ketones Urine Negative (Negative); Leukocyte Esterase Ur Negative LEU/UL (Negative); Nitrate Urine Negative (Negative); Protein Urine Negative (Negative); Specific Grav Ur 1.015 (1.001-1.035); Urobilinogen Urine 0.2 mg/dL (<2.0)
[2022-08-02 05:01] LABS: Add Urine Microscopic? YES
--- NOTE | 2022-08-02 05:08 | ED.GENADULT ---
HPI - General Adult General Chief complaint: Extremity Problem,Nontraumatic Stated complaint: R leg pain Time Seen by Provider: 08/02/22 02:34 History of Present Illness HPI narrative: Patient 86-year-old female presents the emergency department with chief complaint of right knee pain. Patient has prior history of difficulty ambulating due to lower extremity pain and is actually required rehab admissions before in the past the patient has had prior injections to her left knee which has not been replaced but her right knee has been replaced previously the patient reports no trauma and reports that she is been having pain inside of the right knee. Patient reports the pain is not improved by anything patient lives at home with family members and normally is fairly independent. Related Data Home Medications Medication Instructions Recorded Confirmed apixaban 2.5 mg tablet (Eliquis) mg 01/08/22 diltiazem HCl 120 mg tablet mg 01/08/22 furosemide 20 mg tablet mg 01/08/22 levothyroxine 112 mcg tablet mcg 01/08/22 lisinopril 40 mg tablet mg 01/08/22 metoprolol succinate 100 mg mg PO 01/08/22 tablet,extended release 24 hr omeprazole 20 mg capsule,delayed mg 01/08/22 release trospium 20 mg tablet mg 01/08/22 Allergies Allergy/AdvReac Type Severity Reaction Status Date / Time No Known Allergies Allergy Mild Unverified 11/08/21 11:38 Review of Systems Review of Systems: A 10 system review of systems was completed on the patient and is negative except for what is stated in the HPI. Nursing and ancillary documentation was reviewed. [facility] Past Medical History Medical History History of hypertension Hypothyroidism Surgical History Surgical History History of appendectomy History of hysterectomy History of open reduction and internal fixation (ORIF) procedure Left arm Social History Social History Smoking status: Never smoker Second hand tobacco smoke exposure: No Alcohol intake: never Substance use: never Gender identity (if verbalized by the patient): Female Spiritual care concerns: No Exam Narrative: GENERAL: Well-appearing, well-nourished, and in no acute distress. HEAD: Normocephalic, atraumatic. EYES: PERRLA and EOMI. ENT: Nares clear, no rhinorrhea or epistaxis. Mucous membranes moist. NECK: Supple. CHEST: Clear to auscultation. No respiratory distress. HEART: Regular rate and rhythm. No murmur heard. Normal peripheral pulses. ABDOMEN: Soft, nontender, nondistended, normal active bowel sounds. EXTREMITIES: Decreased range of motion of the right knee, bruising present just superior to the right knee. No edema. SKIN: Warm, dry, no rash. NEURO: No focal deficits. Alert and oriented x3. PSYCH: Normal mood and affect. Course Vital Signs Vital signs: Vital Signs Temperature 36.8 C 08/01/22 20:14 Pulse Rate 63 08/01/22 20:14 Respiratory Rate 16 08/01/22 20:14 Blood Pressure 137/102 H 08/01/22 20:14 Pulse Oximetry 99 08/01/22 20:14 Oxygen Delivery Room Air 08/01/22 20:14 Temperature 36.8 C 08/01/22 20:14 Pulse Rate 63 08/01/22 20:14 Respiratory Rate 16 08/01/22 20:14 Blood Pressure 137/102 H 08/01/22 20:14 Pulse Oximetry 99 08/01/22 20:14 Oxygen Delivery Room Air 08/01/22 20:14 Medical Decision Making [facility] Narrative Medical decision making narrative: Differential diagnosis includes trauma, fracture, UTI, electrolyte abnormality pneumonia Laboratory studies were obtained on the patient which just showed a BNP of 212 a creatinine of 1.5 and a BUN of 69 white blood cell count was 7.7 hemoglobin was 10.2 -X-rays of the right knee showed no evidence of fracture and no evidence of hardware anomaly. Chest x-ray showed no evidence of acute finding Vital Signs Vital Sig
[2022-08-02] MEDS: ONDANSETRON INJ 4 MG/2 ML VIAL IV PUSH (05:35)
[2022-08-02] MEDS: SODIUM CHLORIDE 0.9% IV 1,000 ML 125 ML IV CONT (05:36)
--- NOTE | 2022-08-02 05:58 | PC.NURSE ---
0556 Called floor, spoke with MATTHEW Davidson. Cole RN will be pt RN. Cole, was assisting another pt. Will call back after pt is settled back in bed.
--- NOTE | 2022-08-02 10:19 | PC.NURSE ---
This patient, Janet Galvez, was admitted to [facility] Surg Room 315-02. Arrived on previous shift, 0630. Patient/family oriented to hospital policies and general routines including ID bracelet, bed and alarms, visiting hours, pain management, procedures, bathroom and other care routines, personal items, smoking policy, room service/diet, and visiting hours. Information on how to activate the Rapid Response Team has been discussed. Patient/Family are encouraged to report perceived risks to care and to ask questions if they do not understand what they are told or what they should do.
[2022-08-02 12:04] LABS: CRP 1.9 mg/dL (<1.0)
[2022-08-02] MEDS: HYDROcodone/acetaminophen (*CRX) 5-325 MG TABLET 1 TAB PO (12:14)
--- NOTE | 2022-08-02 12:37 | PCOTNOTE ---
Will complete OT evaluation following ortho consult. Will follow.
--- NOTE | 2022-08-02 14:44 | PM.IMHP ---
H&P: HPI History of Present Illness Date/Time: 08/02/22 14:44 Chief Complaint: Right knee pain Narrative: ED-HPI narrative: Patient 86-year-old female presents the emergency department with chief complaint of right knee pain.? Patient has prior history of difficulty ambulating due to lower extremity pain and is actually required rehab admissions before in the past the patient has had prior injections to her left knee which has not been replaced but her right knee has been replaced previously the patient reports no trauma and reports that she is been having pain inside of the right knee.? Patient reports the pain is not improved by anything patient lives at home with family members and normally is fairly independent. morbidly obese 86-year-old female states on and off she has right knee pain and had been seen by orthopedic surgeon and had steroid injection which do help with symptom with pain return, pain is worse with ambulation and weight-bearing will have orthopedic surgeon evaluate the patient and have PT OT work with the patient and further recommendation to follow. patient is admitted as observation status Review of Systems Review of Systems: A 10 system review of systems was completed on the patient and is negative except for what is stated in the HPI. Nursing and ancillary documentation was reviewed. [facility] Past Medical History Medical History History of hypertension Hypothyroidism Surgical History Surgical History History of appendectomy History of hysterectomy History of open reduction and internal fixation (ORIF) procedure Left arm Social History Social History Smoking status: Never smoker Second hand tobacco smoke exposure: No Alcohol intake: current Substance use: current Substance use type: does not use Lack of Transportation: No Lack of Food: Never True Current Housing: I Have Housing Concerned About Future Housing: No Difficulty Paying Gas/Electric Bills: No Difficulty Paying for Meds: No Currently Unemployed: No Education: High School Diploma/GED Difficulty w/ Childcare or Family Care: No Gender identity (if verbalized by the patient): Female Spiritual care concerns: No Meds Home Medications and Allergies Home Medications Medication Instructions Recorded Confirmed Type apixaban 2.5 mg tablet (Eliquis) 2.5 mg PO BID 01/08/22 08/02/22 History diltiazem HCl 120 mg tablet 120 mg PO DAILY 01/08/22 08/02/22 History levothyroxine 112 mcg tablet 112 mcg PO DAILY 01/08/22 08/02/22 History metoprolol succinate 100 mg 100 mg PO DAILY 01/08/22 08/02/22 History tablet,extended release 24 hr omeprazole 20 mg capsule,delayed 40 mg PO DAILY 01/08/22 08/02/22 History release trospium 20 mg tablet 20 mg PO DAILY 01/08/22 08/02/22 History atorvastatin 40 mg tablet 40 mg PO DAILY 08/02/22 08/02/22 History doxycycline hyclate 100 mg tablet 100 mg PO BID 08/02/22 08/02/22 History empagliflozin 10 mg tablet 10 mg PO DAILY 08/02/22 08/02/22 History (Jardiance) furosemide 40 mg tablet 40 mg PO DAILY 08/02/22 08/02/22 History iron 40 mg capsule 40 mg PO DAILY 08/02/22 08/02/22 History losartan 50 mg tablet 50 mg PO DAILY 08/02/22 08/02/22 History potassium chloride 20 mEq 20 meq PO EVERY OTHER DAY 08/02/22 08/02/22 History tablet,extended release Allergies Allergy/AdvReac Type Severity Reaction Status Date / Time No Known Allergies Allergy Mild Unverified 11/08/21 11:38 Vital Signs Vital Signs - 24 hr 08/01/22 20:14 08/02/22 01:31 08/02/22 02:48 Temperature 98.2 F Pulse Rate 63 Respiratory Rate 16 Blood Pressure 137/102 H 153/54 H 120/66 Pulse Oximetry 99 100 100 Oxygen Delivery Room Air 08/02/22 05:48 08/02/22 06:30 08/02/22 09:36 Temperature 97.4 F L 96.6 F L Pulse Rat
--- NOTE | 2022-08-02 16:46 | PM.CNOR ---
Assessment and Plan Assessment and plan (1) Acute pain of right knee: Code(s): M25.561 - Pain in right knee Status: Acute Assessment and Plan: Patient is an 86-year-old female well known to me. She has severe lateral compartment osteoarthritis in the left knee and we see here in the office every 3 months for cortisone injection her last injection on July 08 into the left knee. 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 She came into the emergency room late last night. She states that she fell a couple of days ago and since that time his bone a unable to bear weight on the right leg due to severe pain in the right knee when she does so. She had x-rays of the right knee in the emergency room which showed total knee arthroplasty with patellar resurfacing with no evidence of fracture or loosening and normal alignment is present and there is no evidence of an effusion on the lateral x-ray view. Patient does have chronic swelling problems the last few months in both lower extremities. She has marked erythema of both feet including all 5 toes of each foot. There are chronic edema hyperkeratotic skin changes top and bottom of both feet. She has a 1 in long and 0.25 in wide old eschar mid anterior right quintana. There is no erythema proximal to the ankles bilaterally the skin looks fine except for diffuse purple ecchymosis area about 4 x 2 in over the lateral thigh midportion and that area is nontender. When I asked her how she fell she could not recall. She does have some memory loss. She does take Lasix currently for her lower extremity edema. History of atrial fibrillation and she is on Eliquis chronically 2.5 mg b.i.d.. She also has diabetes and takes jardiance. History of renal insufficiency with creatinine of 1.5 GFR 33. Creatinine clearance only 24. BUN was 69. On exam today she has range of motion of the right knee from 0 to 110? while in bed supine. She had normal stability anterior drawer opened up 1 mm laterally 3 medially and extension. She was unable to do straight leg raise on the right. She grabbed her right thigh with her hands try and help was still was then able to do this. On the left side she is able to do a straight leg raise. It is difficult for her because her legs are very heavy but she is able to without using her hands. She complains of right knee pain when she tries do this on the right. If I support her distal thigh with my forearm under her distal thigh she can extend her knee actively lag in about 7? complains of knee pain with that. She has no superficial tenderness about her knee no ecchymosis there tibial tubercle patellar tendon patella quadriceps all nontender. There is no palpable effusion in the right knee. Flexion of her right hip to 100? caused anterior hip pain and internal rotation of the flexed hip was right knee pain. In the side-lying position she was unable to abduct her right hip at all and complained of severe lateral hip pain in that position. She has severe tenderness over the greater trochanters actually in both hips today. I was able to feel a 1+ dorsalis pedis pulse on the right foot On repeated questioning she denied any pain in her lower back or buttock. X-rays of right hip and AP pelvis demonstrate old healed medial inferior superior pubic rami fractures and patient recalls she thinks having pelvis fracture many years ago but her lacked recollection is vague. X-rays show moderate medial joint space narrowing in both hips with early protrusio bilaterally no acute change however. Impression: Patient is unable to bear weight on the right leg due to severe pain that she feels in the
[2022-08-02] MEDS: DOXYCYCLINE HYCLATE 100 MG TABLET PO (16:49)
[2022-08-02] MEDS: PANTOPRAZOLE 40 MG TABLET PO (16:49)
[2022-08-03] MEDS: LEVOTHYROXINE SODIUM 112 MCG TABLET PO (05:57)
[2022-08-03 06:00] VITALS: BP 128/53; PULSE 68; RESP 18; TEMP 36.2; O2SAT 95
[2022-08-03 06:53] LABS: Hematocrit 29.2 % (37.0-47.0); Hemoglobin 9.5 g/dL (12.0-15.0); Mean Corpuscular HGB Conc 32.5 g/dl (32-36); Mean Corpuscular Hemoglobin 31.1 pg (26-34); Mean Corpuscular Volume 95.7 fl (80-100); Mean Platelet Volume 9.3 fl (7.4-10.4); Platelet Count Result 174 k/mm3 (150-375); Red Blood Count 3.05 M/mm3 (4.2-5.4); Red Cell Distribution Width 13.5 % (11.5-14.5)
[2022-08-03 07:13] LABS: Hemoglobin A1C 5.2 % (<5.7)
[2022-08-03 07:23] LABS: Anion Gap 1 mmol/L (8-16); Blood Urea Nitrogen 46 mg/dL (7-17); Calcium 9.1 mg/dL (8.4-10.2); Carbon Dioxide 29 mmol/L (22-30); Chloride 106 mmol/L (98-107); Estimated CRCL calculation 29 ml/min; Estimated Glomerular Filt Rate 39; Glucose 102 mg/dL (65-110); Magnesium 2.4 mg/dL (1.6-2.3); Potassium 5.6 mmol/L (3.4-5.0); Sodium 136 mmol/L (137-145)
[2022-08-03 07:41] LABS: Erythrocyte Sedimentation Rate 85 mm/hr (0-20)
--- NOTE | 2022-08-03 09:03 | PCPTNOTE ---
Patient will need hip MRI and recommendations from ortho prior to completing PT evaluation.
[2022-08-03] MEDS: SODIUM CHLORIDE 0.9% IV 1,000 ML 125 ML IV CONT (09:09)
[2022-08-03 09:29] VITALS: PULSE 68
[2022-08-03] MEDS: METOPROLOL SUCCINATE EXT REL 100 MG TABCR PO (09:29)
[2022-08-03] MEDS: DOXYCYCLINE HYCLATE 100 MG TABLET PO ×2 (09:29→17:12)
[2022-08-03] MEDS: LOSARTAN POTASSIUM 50 MG TABLET PO (09:29)
[2022-08-03] MEDS: FUROSEMIDE 40 MG TABLET PO (09:29)
[2022-08-03] MEDS: ATORVASTATIN 40 MG TABLET PO (09:29)
[2022-08-03] MEDS: EMPAGLIFLOZIN 10 MG TABLET PO (09:30)
[2022-08-03] MEDS: PANTOPRAZOLE 40 MG TABLET PO ×2 (09:30→17:12)
[2022-08-03] MEDS: FERROUS SULFATE DRIED 142 MG TABCR PO (09:30)
--- NOTE | 2022-08-03 12:08 | PM.PNORT ---
Progress Note: A&P Assessment and Plan (1) Acute pain of right knee: Code(s): M25.561 - Pain in right knee Status: Acute Assessment and Plan: Awaiting MRI right hip. ESR 85. Non specific in setting of CRF. WBC 6.5 Subjective Subjective Date/Time Seen: 08/03/22 12:08 Objective Data Vital Signs Vital Signs: Vital Signs - 24 hr 08/02/22 14:00 08/02/22 20:00 08/02/22 21:23 Temperature 36.6 C 36.3 C L Pulse Rate 78 78 69 Respiratory Rate 18 18 20 Blood Pressure 116/50 L 128/58 L Pulse Oximetry 100 100 99 Oxygen Delivery Room Air 08/03/22 06:00 08/03/22 09:29 08/03/22 08:00 Temperature 36.2 C L Pulse Rate 68 68 Respiratory Rate 18 Blood Pressure 128/53 L Pulse Oximetry 95 Oxygen Delivery Room Air Intake/Output Intake/Output: Intake & Output 07/31/22 08/01/22 08/02/22 08/03/22 23:59 23:59 23:59 23:59 Intake Total 2040 370 Output Total 600 1400 Balance 1440 -1030 Meds/Results Medications: Active Medications Generic Name Dose Route Start Last Admin Trade Name Freq PRN Reason Stop Dose Admin Hydrocodone Bitart/Acetaminophen 1 tab 08/02/22 05:18 08/02/22 12:14 Hydrocodone/Acetaminophen (*Crx) 5-325 Mg Tablet PO 1 tab Q4H PRN Administration Pain Rated 4-6 Apixaban 2.5 mg 08/02/22 09:00 Apixaban 2.5 Mg Tablet PO DAILY NAYELI Atorvastatin Calcium 40 mg 08/03/22 09:00 08/03/22 09:29 Atorvastatin 40 Mg Tablet PO 40 mg DAILY NAYELI Administration Diltiazem HCl 120 mg 08/03/22 09:00 08/03/22 09:29 Diltiazem Hcl Cd 120 Mg Cap.Sa.24h PO 120 mg DAILY NAYELI Administration Doxycycline Hyclate 100 mg 08/02/22 17:00 08/03/22 09:29 Doxycycline Hyclate 100 Mg Tablet PO 100 mg BID NAYELI Administration Empagliflozin 10 mg 08/03/22 09:00 08/03/22 09:30 Empagliflozin 10 Mg Tablet PO 10 mg DAILY NAYELI Administration Ferrous Sulfate 142 mg 08/03/22 09:00 08/03/22 09:30 Ferrous Sulfate Dried 142 Mg Tabcr PO 142 mg DAILY NAYELI Administration Ferrous Sulfate 325 mg 08/03/22 09:00 Ferrous Sulfate 324 Mg Tablet PO DAILY NAYELI Furosemide 40 mg 08/03/22 09:00 08/03/22 09:29 Furosemide 40 Mg Tablet PO 40 mg DAILY NAYELI Administration Sodium Chloride 1,000 mls @ 125 mls/hr 08/02/22 05:20 08/03/22 09:31 Normal Saline Iv IV CONT Not Given .Q8H [facility] Levothyroxine Sodium 112 mcg 08/03/22 06:30 08/03/22 05:57 Levothyroxine Sodium 112 Mcg Tablet PO 112 mcg DAILY@0630 [facility] Administration Losartan Potassium 50 mg 08/03/22 09:00 08/03/22 09:29 Losartan Potassium 50 Mg Tablet PO 50 mg DAILY NAYELI Administration Metoprolol Succinate 100 mg 08/03/22 09:00 08/03/22 09:29 Metoprolol Succinate Ext Rel 100 Mg Tabcr PO 100 mg DAILY NAYELI Administration Miscellaneous Information 0 each 08/02/22 00:01 Apixaban 2.5 External Med Record Indicates Pt Taking Bid Please Clarify XX 09/01/22 00:00 CLARIFY [facility] Miscellaneous Information 1 each 08/02/22 00:01 Trospium Is Nonform; Can Pt Use From Home? XX 09/01/22 00:00 CLARIFY [facility] Miscellaneous Information 1 each 08/02/22 00:01 Clarify Potassium-When Is Next Dose Due? XX 09/01/22 00:00 CLARIFY [facility] Miscellaneous Information 1 each 08/03/22 00:01 Ferrous Sulfate 324mg Tab And 142mg Tab Both Ordered. D/C One? XX 09/02/22 00:00 CLARIFY [facility] Non-Formulary Medication 20 mg 08/03/22 09:00 Trospium PO 09/02/22 08:59 DAILY [facility] Pantoprazole Sodium 40 mg 08/02/22 17:00 08/03/22 09:30 Pantoprazole 40 Mg Tablet PO 40 mg BID [facility] Administration Potassium Chloride 20 meq 08/02/22 14:55 Potassium Chloride 20 Meq Tablet.Er PO EVERY OTHER DAY [facility] Radiology Results: ITS Impressions Knee X-Ray 08/01/22 21:15 IMPRESSION: No acute osseous finding in the right knee. No radiographic evidence of hardware-related complication. Chest X-Ray 08/02/22 06:2
[2022-08-03 14:00] VITALS: BP 103/71; PULSE 66; RESP 18; TEMP 36.7; O2SAT 100
--- NOTE | 2022-08-03 14:16 | PCOTNOTE ---
Patient will need hip MRI and recommendations from ortho prior to completing OT evaluation.
--- NOTE | 2022-08-03 14:53 | PM.IMPN ---
Progress Note: A&P Assessment and Plan (1) Acute pain of right knee: Code(s): M25.561 - Pain in right knee Status: Acute Assessment and Plan: ED-HPI narrative: Patient 86-year-old female presents the emergency department with chief complaint of right knee pain.? Patient has prior history of difficulty ambulating due to lower extremity pain and is actually required rehab admissions before in the past the patient has had prior injections to her left knee which has not been replaced but her right knee has been replaced previously the patient reports no trauma and reports that she is been having pain inside of the right knee.? Patient reports the pain is not improved by anything patient lives at home with family members and normally is fairly independent. 08/03/2022 interval history: morbidly obese 86-year-old female states on and off she has right knee pain and had been seen by orthopedic surgeon and had steroid injection which do help with symptom with pain return, pain is worse with ambulation and weight-bearing, on 08/02 patient was seen by orthopedic surgeon evaluated the patient, and suspected patient's right knee pain may be stemming from right hip pain to further evaluate MRI of the hip is ordered to rule out any occult fracture, will follow-up, and have PT OT work with the patient and further recommendation to follow. (2) Generalized weakness: Code(s): R53.1 - Weakness Status: Acute Assessment and Plan: will have a PT OT evaluate the patient, patient will benefit going to rehab (3) Atrial fibrillation: Code(s): I48.91 - Unspecified atrial fibrillation Status: Acute Assessment and Plan: history of atrial fibrillation rate is controlled with diltiazem and anticoagulation with Eliquis will hold for orthopedic surgery recommendation. Subjective Date/time seen: 08/03/22 14:53 ED-HPI narrative: Patient 86-year-old female presents the emergency department with chief complaint of right knee pain.? Patient has prior history of difficulty ambulating due to lower extremity pain and is actually required rehab admissions before in the past the patient has had prior injections to her left knee which has not been replaced but her right knee has been replaced previously the patient reports no trauma and reports that she is been having pain inside of the right knee.? Patient reports the pain is not improved by anything patient lives at home with family members and normally is fairly independent. 08/03/2022 interval history: morbidly obese 86-year-old female states on and off she has right knee pain and had been seen by orthopedic surgeon and had steroid injection which do help with symptom with pain return, pain is worse with ambulation and weight-bearing, on 08/02 patient was seen by orthopedic surgeon evaluated the patient, and suspected patient's right knee pain may be stemming from right hip pain to further evaluate MRI of the hip is ordered to rule out any occult fracture, will follow-up, and have PT OT work with the patient and further recommendation to follow. Exam Narrative: Patient is comfortable, NAD HEENT: eyes are clear and none icteric LUNGS: normal respiratory effort ABD: distended Lower extremities: no edema MS: right knee old surgical marking, no erythema or induration SKIN: nonjaundiced Neuro: grossly intact. Objective Data Vital Signs Vital Signs: Vital Signs - 24 hr 08/02/22 20:00 08/02/22 21:23 08/03/22 06:00 Temperature 97.4 F L 97.1 F L Pulse Rate 78 69 68 Respiratory Rate 18 20 18 Blood Pressure 128/58 L 128/53 L Pulse Oximetry 100 99 95 Oxygen Delivery Room Air 08/03/22 09:29 08/03/22 08:00 Temperature Pulse Rate 68 Respiratory Rate Blood Pressure Pulse Oximetry Oxygen Delivery Room Air Intake/Output Intake/Output: Intake & Output 07/31/22 08/01/22 08/02/22 08/03/22 23:59 23:59 23:59 23:59 Intake Total 2039 323
--- NOTE | 2022-08-03 17:06 | PM.PNORT ---
Progress Note: A&P Assessment and Plan (1) Strain of right iliopsoas muscle: Code(s): S76.911A - Strain of unspecified muscles, fascia and tendons at thigh level, right thigh, initial encounter Status: Acute Assessment and Plan: Patient just completed her MRI scan. I have reviewed the images with the radiologist. There is diffuse edema surrounding the right iliopsoas musculature from the lesser trochanter into the inferior pelvis. This would be consistent with her inability to raise her leg. This is the acute abnormality that explains her symptoms at this time I believe. Although her pain seems to be at the medial knee with movements of her hip I think this is referred down the medial thigh to the knee. The radiologist also felt there was edema around the inferior sacrum. Unfortunately we lacked the sagittal views in T2 through the sacrum to confirm that. No evidence of bone involvement in the hip or acetabulum or pelvis otherwise. 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 There is milder retraction and moderate atrophy of the gluteus minimus muscles . there is a small fluid collection adjacent to the greater trochanter consistent with a trochanteric bursitis. Taking into consideration her history of the onset of her symptoms coinciding with her fall now 3 days ago and inability to bear weight afterwards, I believe the diffuse significant edema around the iliopsoas tendon and muscle is result of traumatic strain and avulsion an apparent retraction of the tendon rather than another soft the process such as iliopsoas abscess for example. On exam today she continues to have no tenderness around the right knee. She does have moderately severe tenderness over the anteromedial groin medial anterior proximal thigh were I would expect the location of the iliopsoas distal tendon to be. I did not think to push on that area yesterday but today that is quite tender. 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 She again denies having any pain in her tailbone today or lower back. Her son was with her though and reports that when she came into the ER the night before last when they put her on a bedpan she did yell out with pain in speculates that perhaps she did have tenderness there. She had a lot of pain the lateral hips rolling her to her side yesterday and I did not roll her to her side today as the presence of tenderness at the coccyx lot exchange operator at this time but she will keep track of whether she does experience pain there. That location is below the weight-bearing structure of the sacroiliac joints and weight-bearing will not affect it. If she is tender sitting in chair and coccyx area a coccyx coccydynia cushion ordered for her that would help that and we will see how she does getting up to the chair. She can be weight-bearing as tolerated. Unfortunately with her chronically edematous legs, this does put a lot of extra strain on the iliopsoas tendon and will make it difficult for her to raise her leg actively. She may need to use her hands to assist with assist with that. Most people with an isolated iliopsoas tear with resolution of the pain, hip like quintana weakness is only a minor problem that would limit participate patient in certain sports for example but with her chronic tearing of the act anterior abductor this may cause a little bit more than average hip flexion weakness and with her leg being very edematous chronically it may cause a little bit more functional limitation for her to have deficiency of the iliopsoas mechanism. Surgica
[2022-08-03] MEDS: oxyCODONE HCL (*CRX) 2.5 MG TAB IR PO ×2 (19:00→22:35)
[2022-08-03] MEDS: ACETAMINOPHEN 325 MG TABLET 650 MG PO (19:00)
[2022-08-03 22:00] VITALS: BP 106/88; PULSE 63; RESP 18; TEMP 36.3; O2SAT 97
[2022-08-04] MEDS: ACETAMINOPHEN 325 MG TABLET 650 MG PO ×4 (00:58→18:19)
[2022-08-04] MEDS: oxyCODONE HCL (*CRX) 2.5 MG TAB IR PO ×6 (00:58→21:32)
[2022-08-04] MEDS: SODIUM CHLORIDE 0.9% IV 1,000 ML 125 ML IV CONT ×3 (01:20→23:29)
[2022-08-04] MEDS: LEVOTHYROXINE SODIUM 112 MCG TABLET PO (05:44)
[2022-08-04 06:00] VITALS: BP 141/48; PULSE 53; RESP 20; TEMP 36.4; O2SAT 100
--- NOTE | 2022-08-04 07:16 | PM.PNORT ---
Progress Note: A&P Assessment and Plan (1) Strain of right iliopsoas muscle: Code(s): S76.911A - Strain of unspecified muscles, fascia and tendons at thigh level, right thigh, initial encounter Status: Acute Assessment and Plan: Patient reports still having pain in the medial aspect of her distal thigh just proximal to the level of the knee in the region vastus medialis oblique was. On palpation 1 time she said it was tender and another times nontender and I think this is referred from her iliopsoas strain. Today, she cannot raise the right leg off the bed actively but can with the assistance of her hands but when I support under the thigh she can fully extend her right knee locking and out to 0? with 5 of 5 quadriceps strength she had flexion to 120 without pain. She still has moderately severe tenderness to palpation in the anteromedial proximal thigh at the level of the lesser trochanter which is from her string. She has been afebrile. We started her on Tylenol and low-dose oxycodone last night a scheduled basis and she feels that she is tolerating this well. I advised her that she can decline it if she does not want or she feels it is too strong. I will be out of town starting 5:00 a.m. tomorrow morning and times 80s will be available if any questions arise. I will add the oxycodone and Tylenol to her discharge summary. It is not clear yet whether she will be able to discharge to home or whether she will need to be transferred to a [place] [facility] unit for rehabilitation for a period of time and this will depend on how much support her family give her at home. She lives with her son and grandson I believe. Physical therapy will be started today and we will see how she does. Impression acute complete iliopsoas tear right hip from fall 4 days ago. She seems to be improving and has full muscular control of her knee at this time on the right and normal activation of her quadriceps now. I would expect that she will be able to bear full weight on the right leg now. Unfortunately she does have severe lateral compartment osteoarthritis of the left knee which will make things more difficult for. Her leg edema is a little bit better over the last couple of days with her time in bed rest. Subjective Subjective Date/Time Seen: 08/04/22 07:16 Objective Data Vital Signs Vital Signs: Vital Signs - 24 hr 08/03/22 09:29 08/03/22 08:00 08/03/22 14:00 Temperature 36.7 C Pulse Rate 68 66 Respiratory Rate 18 Blood Pressure 103/71 Pulse Oximetry 100 Oxygen Delivery Room Air 08/03/22 22:00 08/03/22 20:00 08/04/22 06:00 Temperature 36.3 C L 36.4 C L Pulse Rate 63 53 L Respiratory Rate 18 20 Blood Pressure 106/88 141/48 H Pulse Oximetry 97 100 Oxygen Delivery Room Air Intake/Output Intake/Output: Intake & Output 08/01/22 08/02/22 08/03/22 08/04/22 23:59 23:59 23:59 23:59 Intake Total 2040 2009 250 Output Total 600 2600 Balance 1440 -590 250 Meds/Results Medications: Active Medications Generic Name Dose Route Start Last Admin Trade Name Freq PRN Reason Stop Dose Admin Acetaminophen 650 mg 08/03/22 18:00 08/04/22 05:45 Acetaminophen 325 Mg Tablet PO 650 mg Q6H NAYELI Administration Apixaban 2.5 mg 08/04/22 09:00 Apixaban 2.5 Mg Tablet PO BID NAYELI Atorvastatin Calcium 40 mg 08/03/22 09:00 08/03/22 09:29 Atorvastatin 40 Mg Tablet PO 40 mg DAILY NAYELI Administration Diltiazem HCl 120 mg 08/03/22 09:00 08/03/22 09:29 Diltiazem Hcl Cd 120 Mg Cap.Sa.24h PO 120 mg DAILY NAYELI Administration Doxycycline Hyclate 100 mg 08/02/22 17:00 08/03/22 17:12 Doxycycline Hyclate 100 Mg Tablet PO 100 mg BID NAYELI Administration Empagliflozin 10 mg 08/03/22 09:00 08/03/22 09:30 Empagliflozin 10 Mg Tablet PO 10 mg DAILY NAYELI Administration Ferrous Sulfate 142 mg 08/03/22 09:00 08/03/22 09:30 Ferrous Sulfate Dried 142 Mg Tabcr P
[2022-08-04 07:23] LABS: Hematocrit 27.1 % (37.0-47.0); Hemoglobin 8.6 g/dL (12.0-15.0); Mean Corpuscular HGB Conc 31.7 g/dl (32-36); Mean Corpuscular Hemoglobin 30.5 pg (26-34); Mean Corpuscular Volume 96.1 fl (80-100); Platelet Count Result 154 k/mm3 (150-375); Red Blood Count 2.82 M/mm3 (4.2-5.4); Red Cell Distribution Width 13.7 % (11.5-14.5); White Blood Count 5.8 K/mm3 (4.5-10.0)
[2022-08-04 07:48] LABS: Anion Gap 4 mmol/L (8-16); Blood Urea Nitrogen 41 mg/dL (7-17); Calcium 7.8 mg/dL (8.4-10.2); Carbon Dioxide 24 mmol/L (22-30); Chloride 107 mmol/L (98-107); Estimated CRCL calculation 32 ml/min; Estimated Glomerular Filt Rate 43; Glucose 110 mg/dL (65-110); Magnesium 2.3 mg/dL (1.6-2.3); Potassium 4.5 mmol/L (3.4-5.0); Sodium 135 mmol/L (137-145)
[2022-08-04] MEDS: PANTOPRAZOLE 40 MG TABLET PO ×2 (09:42→18:19)
[2022-08-04] MEDS: APIXABAN 2.5 MG TABLET PO ×2 (09:46→18:19)
[2022-08-04] MEDS: LOSARTAN POTASSIUM 50 MG TABLET PO (11:22)
[2022-08-04] MEDS: ATORVASTATIN 40 MG TABLET PO (11:22)
[2022-08-04] MEDS: FERROUS SULFATE DRIED 142 MG TABCR PO (11:22)
[2022-08-04 11:24] VITALS: BP 111/64; PULSE 62; RESP 14; O2SAT 100
[2022-08-04 11:25] VITALS: PULSE 62
[2022-08-04] MEDS: METOPROLOL SUCCINATE EXT REL 100 MG TABCR PO (11:25)
[2022-08-04] MEDS: DOXYCYCLINE HYCLATE 100 MG TABLET PO ×2 (11:26→18:19)
[2022-08-04] MEDS: FUROSEMIDE 40 MG TABLET PO (11:26)
[2022-08-04] MEDS: EMPAGLIFLOZIN 10 MG TABLET PO (11:27)
[2022-08-04 14:00] VITALS: BP 111/58; PULSE 63; RESP 19; TEMP 36.4; O2SAT 100
--- NOTE | 2022-08-04 14:43 | PM.IMPN ---
Progress Note: A&P Assessment and Plan (1) Acute pain of right knee: Code(s): M25.561 - Pain in right knee Status: Acute Assessment and Plan: ED-HPI narrative: Patient 86-year-old female presents the emergency department with chief complaint of right knee pain.? Patient has prior history of difficulty ambulating due to lower extremity pain and is actually required rehab admissions before in the past the patient has had prior injections to her left knee which has not been replaced but her right knee has been replaced previously the patient reports no trauma and reports that she is been having pain inside of the right knee.? Patient reports the pain is not improved by anything patient lives at home with family members and normally is fairly independent. 08/04/2022 interval history: morbidly obese 86-year-old female states on and off she has right knee pain and had been seen by orthopedic surgeon and had steroid injection which do help with symptom with pain return, pain is worse with ambulation and weight-bearing, on 08/02 patient was seen by orthopedic surgeon evaluated the patient, and suspected patient's right knee pain may be stemming from right hip fracture to further evaluate MRI of the hip was ordered to rule out any occult fracture, the MRI showed Acute versus subacute insufficiency fractures of the inferior sacrum, it is painful for patient to ambulate, will have PT OT work with the patient and will benefit going to SNF rehab and further recommendation to follow. (2) Generalized weakness: Code(s): R53.1 - Weakness Status: Acute Assessment and Plan: will have a PT OT evaluate the patient, patient will benefit going to rehab (3) Atrial fibrillation: Code(s): I48.91 - Unspecified atrial fibrillation Status: Acute Assessment and Plan: history of atrial fibrillation rate is controlled with diltiazem and anticoagulation with Eliquis will hold for orthopedic surgery recommendation. Subjective Date/time seen: 08/04/22 14:43 ED-HPI narrative: Patient 86-year-old female presents the emergency department with chief complaint of right knee pain.? Patient has prior history of difficulty ambulating due to lower extremity pain and is actually required rehab admissions before in the past the patient has had prior injections to her left knee which has not been replaced but her right knee has been replaced previously the patient reports no trauma and reports that she is been having pain inside of the right knee.? Patient reports the pain is not improved by anything patient lives at home with family members and normally is fairly independent. 08/04/2022 interval history: morbidly obese 86-year-old female states on and off she has right knee pain and had been seen by orthopedic surgeon and had steroid injection which do help with symptom with pain return, pain is worse with ambulation and weight-bearing, on 08/02 patient was seen by orthopedic surgeon evaluated the patient, and suspected patient's right knee pain may be stemming from right hip fracture to further evaluate MRI of the hip was ordered to rule out any occult fracture, the MRI showed Acute versus subacute insufficiency fractures of the inferior sacrum, it is painful for patient to ambulate, will have PT OT work with the patient and will benefit going to SNF rehab and further recommendation to follow. Exam Narrative: Patient is comfortable, NAD HEENT: eyes are clear and none icteric LUNGS: normal respiratory effort ABD: distended Lower extremities: no edema MS: right knee old surgical marking, no erythema or induration SKIN: nonjaundiced Neuro: grossly intact. Objective Data Vital Signs Vital Signs: Vital Signs - 24 hr 08/03/22 22:00 08/03/22 20:00 08/04/22 06:00 Temperature 97.4 F L 97.5 F L Pulse Rate 63 53 L Respiratory Rate 18 20 Blood Pressure 106/88 141/48 H Pulse Oximetry 97 100 Oxygen Delivery Room Air
[2022-08-04 22:00] VITALS: BP 133/66; PULSE 57; RESP 16; TEMP 35.9; O2SAT 98
[2022-08-05] MEDS: oxyCODONE HCL (*CRX) 2.5 MG TAB IR PO ×5 (00:56→17:32)
[2022-08-05] MEDS: ACETAMINOPHEN 325 MG TABLET 650 MG PO ×4 (00:56→17:32)
[2022-08-05] MEDS: LEVOTHYROXINE SODIUM 112 MCG TABLET PO (05:31)
[2022-08-05 06:00] VITALS: BP 140/60; PULSE 56; RESP 16; TEMP 36; O2SAT 100
[2022-08-05 07:02] LABS: Hematocrit 26.9 % (37.0-47.0); Hemoglobin 8.5 g/dL (12.0-15.0); Mean Corpuscular HGB Conc 31.6 g/dl (32-36); Mean Corpuscular Hemoglobin 30.2 pg (26-34); Mean Corpuscular Volume 95.7 fl (80-100); Mean Platelet Volume 9.5 fl (7.4-10.4); Platelet Count Result 162 k/mm3 (150-375); Red Blood Count 2.81 M/mm3 (4.2-5.4); Red Cell Distribution Width 13.5 % (11.5-14.5); White Blood Count 5.5 K/mm3 (4.5-10.0)
[2022-08-05 07:15] LABS: Anion Gap 2 mmol/L (8-16); Blood Urea Nitrogen 33 mg/dL (7-17); Calcium 8.2 mg/dL (8.4-10.2); Carbon Dioxide 25 mmol/L (22-30); Chloride 106 mmol/L (98-107); Estimated CRCL calculation 32 ml/min; Estimated Glomerular Filt Rate 43; Glucose 108 mg/dL (65-110); Potassium 4.3 mmol/L (3.4-5.0); Sodium 133 mmol/L (137-145)
[2022-08-05 08:00] VITALS: PULSE 82; RESP 18; O2SAT 98
[2022-08-05 10:12] VITALS: PULSE 60
[2022-08-05] MEDS: LOSARTAN POTASSIUM 50 MG TABLET PO (10:12)
[2022-08-05] MEDS: METOPROLOL SUCCINATE EXT REL 100 MG TABCR PO (10:12)
[2022-08-05] MEDS: FERROUS SULFATE DRIED 142 MG TABCR PO (10:12)
[2022-08-05] MEDS: FUROSEMIDE 40 MG TABLET PO (10:12)
[2022-08-05] MEDS: PANTOPRAZOLE 40 MG TABLET PO ×2 (10:12→17:32)
[2022-08-05] MEDS: DOXYCYCLINE HYCLATE 100 MG TABLET PO ×2 (10:13→17:32)
[2022-08-05] MEDS: EMPAGLIFLOZIN 10 MG TABLET PO (10:13)
[2022-08-05] MEDS: APIXABAN 2.5 MG TABLET PO ×2 (10:13→17:32)
[2022-08-05] MEDS: ATORVASTATIN 40 MG TABLET PO (10:13)
[2022-08-05] MEDS: SODIUM CHLORIDE 0.9% IV 1,000 ML 125 ML IV CONT (10:14)
[2022-08-05] MEDS: POTASSIUM CHLORIDE 20 MEQ TABLET.ER PO (10:15)
[2022-08-05] MEDS: polyethylene glycoL 3350 17 GM POWD.PACK PO (10:17)
--- NOTE | 2022-08-05 11:46 | PM.DS ---
DS: Admitting Diagnosis Discharge Date 08/05/2022 Admitting Diagnosis Right knee pain DS: Discharge Diagnosis Discharge Diagnosis (1) Acute pain of right knee: Code(s): M25.561 - Pain in right knee Status: Acute Assessment and Plan: ED-HPI narrative: Patient 86-year-old female presents the emergency department with chief complaint of right knee pain.? Patient has prior history of difficulty ambulating due to lower extremity pain and is actually required rehab admissions before in the past the patient has had prior injections to her left knee which has not been replaced but her right knee has been replaced previously the patient reports no trauma and reports that she is been having pain inside of the right knee.? Patient reports the pain is not improved by anything patient lives at home with family members and normally is fairly independent. 08/04/2022 interval history: morbidly obese 86-year-old female states on and off she has right knee pain and had been seen by orthopedic surgeon and had steroid injection which do help with symptom with pain return, pain is worse with ambulation and weight-bearing, on 08/02 patient was seen by orthopedic surgeon evaluated the patient, and suspected patient's right knee pain may be stemming from right hip fracture to further evaluate MRI of the hip was ordered to rule out any occult fracture, the MRI showed Acute versus subacute insufficiency fractures of the inferior sacrum, it is painful for patient to ambulate, will have PT OT work with the patient and will benefit going to SNF rehab and further recommendation to follow. (2) Generalized weakness: Code(s): R53.1 - Weakness Status: Acute Assessment and Plan: will have a PT OT evaluate the patient, patient will benefit going to rehab (3) Atrial fibrillation: Code(s): I48.91 - Unspecified atrial fibrillation Status: Acute Assessment and Plan: history of atrial fibrillation rate is controlled with diltiazem and anticoagulation with Eliquis will hold for orthopedic surgery recommendation. DS: Summary Hospital Course Reason for hospitalization: Right knee pain Narrative: ED-HPI narrative: Patient 86-year-old female presents the emergency department with chief complaint of right knee pain.? Patient has prior history of difficulty ambulating due to lower extremity pain and is actually required rehab admissions before in the past the patient has had prior injections to her left knee which has not been replaced but her right knee has been replaced previously the patient reports no trauma and reports that she is been having pain inside of the right knee.? Patient reports the pain is not improved by anything patient lives at home with family members and normally is fairly independent. morbidly obese 86-year-old female states on and off she has right knee pain and had been seen by orthopedic surgeon and had? steroid injection which do help with symptom with pain return, pain is worse with ambulation and weight-bearing will have orthopedic surgeon evaluate the patient and have PT OT work with the patient and further recommendation to follow. Hospital Course: ?morbidly obese 86-year-old female states on and off she has right knee pain and had been seen by orthopedic surgeon and had? steroid injection which do help with symptom with pain return, pain is worse with ambulation and weight-bearing, on 08/02 patient was seen by orthopedic surgeon evaluated the patient,? and suspected patient's right knee pain may be stemming from right hip fracture to further evaluate MRI of the hip was ordered to rule out any occult fracture, the MRI showed?Acute versus subacute insufficiency fractures of the inferior sacrum, it is painful for patient to ambulate,?will? have PT OT work with the patient and will benefit going to SNF rehab and further recommendation to follow. Will discharge patient to [place] [facility] Time Spent with Beatriz
--- NOTE | 2022-08-05 13:34 | PCPTNOTE ---
Attempted to see patient for PT, however patient refused due to stomach pain. RN aware.
[2022-08-05 14:00] VITALS: BP 116/83; PULSE 55; RESP 17; TEMP 36.5; O2SAT 100
== END 2022-08-05 18:55 | disposition short-term general hospital (02) | DRG 538 ==
LOC: ANHED 08-02 05:20 → ANH3MEDSUR 08-02 05:48
PROVIDERS: Orthopaedic Surgery; Admitting Provider Internal Medicine; Emergency Provider Emergency Medicine; PCP Internal Medicine; Visit Provider Family Medicine
DX: S76.811A Strain of other specified muscles, fascia and tendons at thigh level, right thigh, initial encounter (principal); M17.11 Unilateral primary osteoarthritis, right knee; W19.XXXA Unspecified fall, initial encounter; I10 Essential (primary) hypertension; E03.9 Hypothyroidism, unspecified; M70.62 Trochanteric bursitis, left hip; M70.61 Trochanteric bursitis, right hip; I48.91 Unspecified atrial fibrillation; E66.01 Morbid (severe) obesity due to excess calories; Z96.651 Presence of right artificial knee joint; Z68.32 Body mass index [BMI] 32.0-32.9, adult; Z90.49 Acquired absence of other specified parts of digestive tract; Z90.710 Acquired absence of both cervix and uterus; Z79.01 Long term (current) use of anticoagulants
CPT/HCPCS: 36415; 71045; 73521; 73560; 73721; 80048; 80053; 81001; 83036; 83735; 83880; 84484; 85025; 85027; 85610; 85652; 85730; 86140; 93005; 93971; 96361; 96374; 97110; 97161; 97165; 97530; 97535; 99285; A9270; G0378; J2405; J7030

== ENCOUNTER 2023-04-04 06:18 | Emergency (ER) | payer MEDICARE, MEDICAID, SELFPAY ==
[2023-04-04] VITALS (22 sets, daily range): BP systolic 97–171; BP diastolic 54–153; PULSE 63–84; RESP 15–29; TEMP 36.8; O2SAT 90–100
--- NOTE | ~2023-04-04 | XR_ITS ---
Portable chest x-ray Comparison: 08/02/2022 Clinical History: CHF, cough Findings: There is minimal interstitial prominence in the lungs. No consolidation or pleural effusio n. Cardiomediastinal silhouette is stable. Left shoulder arthroplasty again noted. Impression: Possible minimal interstitial edema versus other nonspecific interstitial prominence. Reviewed, dictated and finalized at [facility]. [employer]OR OF REVENUE Impression: Possible minimal interstitial edema versus other nonspecific interstitial promi nence.
--- NOTE | ~2023-04-04 | CT_ITS ---
EXAMINATION: CT brain wo con DATE: 04/04/2023 13:52 INDICATION: Fall. Patient on blood thinners. TECHNIQUE: Computed tomography (CT) of the head was performed without intravenous contrast. The mA wa s adjusted according to patient size. Iterative reconstruction technique was employed. Exam dose: 60 5.33 mGy-cm total exam DLP. COMPARISON: 01/08/2022 CT brain FINDINGS: There are chronic bilateral lacunar infarcts of the thalamus and basal ganglia. Vertebral, basilar and carotid siphon internal carotid artery calcifications are noted. There is nons pecific diminished attenuation of the cerebral white matter, likely due to chronic small vessel ische nuris changes. Chronic right cerebellar hemispheric infarct is noted. No intracranial mass lesion or hemorrhage, midline shift or mass effect is detected. There is prominent central and cortical cerebral and moderate cerebellar atrophy. No subdural or epidural hematoma is evident. There is a fluid level in the left maxillary sinus. There is prominent patchy opacification of ethmoi d air cells bilaterally. There is minimal mucoperiosteal thickening of the sphenoid sinuses localized mucoperiosteal thickenin g of the right frontoethmoid areas but otherwise clear frontal sinuses. The mastoid air cells are normally developed and aerated bilaterally. No fracture or bone destruction of the cranial vault. IMPRESSION: Cerebral atherosclerosis and chronic small vessel ischemic changes of the cerebral white matter Bilateral chronic thalamic and basal ganglia lacunar infarcts, old right cerebellar hemispheric infar ct Central and cortical cerebral and cerebellar atrophy No acute intracranial finding Reviewed, dictated and finalized at [facility]. Reviewed, dictated and finalized at [facility]. NT SUPPORT COORDINATOR IMPRESSION: Cerebral atherosclerosis and chronic small vessel ischemic changes of the cerebral white matter Bilateral chronic thalamic and basal ganglia lacunar infarcts, old right cerebe llar hemispheric infarct Central and cortical cerebral and cerebellar atrophy No acute intracranial finding
--- NOTE | ~2023-04-04 | CT_ITS ---
Clinical Indication: Elevated d-dimer, evaluate for pulmonary embolus CT Scan of the Chest with Contrast: Technique: Contiguous sections were acquired throughout the chest after intravenous administration of 100 cc of Omnipaque 350. Dose reduction technique was used on this scan by utilizing automated expos ure control and iterative reconstruction technique. The dose-length product (DLP) was 635.71 mGy-cm. COMPARISON: 11/08/2021 Findings: There is no evidence of any significant mediastinal, hilar or axillary lymphadenopathy. There is no f illing defect in the pulmonary arterial tree to suggest pulmonary embolus. There is no evidence of ao rtic dissection or aneurysm. Moderate hiatal hernia noted. There is no evidence of pleural or pericardial effusion. Stable small lingular nodule present. Subcentimeter peripheral right upper lobe pulmonary nodule is a lso similar to prior exam. Images through the upper abdomen reveal no abnormalities. Impression: No evidence of pulmonary embolus, aortic dissection, or aortic aneurysm. No acute pulmonary abnormality. Stable small pulmonary nodules, as noted above. Moderate hiatal hernia. Reviewed, dictated and finalized at [facility]. BUFFER Impression: No evidence of pulmonary embolus, aortic dissection, or aortic aneurysm. No acute pulmonary abnormality. Stable small pulmonary nodules, as noted above. Moderate hiatal hernia.
--- NOTE | 2023-04-04 07:51 | ECG_ITS ---
Measurements Intervals [place] Rate: 67 P: 233 [place]: 234 QRS: 30 QRSD: 82 T: -25 QT: 390 QTc: 414 Interpretive Statements SINUS RHYTHM WITH FIRST DEGREE AV BLOCK BORDERLINE ST-T WAVE ABNORMALITY- ANT/INF LEADS BASELINE ARTIFACT- I, II, III, AVR, AVL, AVF, V1-V6 BORDERLINE ECG COMPARED TO ECG 08/02/2022 03:42:35 NO SIGNIFICANT CHANGES Electronically Signed On 04-04-2023 9:43:28 TYRE FITTER by Se Eddy D.O.
[2023-04-04 08:05] LABS: Basophils Percent Auto 0.4 % (0.2-1.2); Eosinophils Absolute Auto 0.1 K/mm3 (0-0.3); Eosinophils Percent Auto 0.6 % (0-4.4); Hematocrit 32.1 % (37.0-47.0); Hemoglobin 9.8 g/dL (12.0-15.0); Immature Granulocyte Absolute 0.04 K/mm3 (0.00-0.031); Immature Granulocyte Percent A 0.5 % (0-0.5); Lymphocytes Absolute Auto 0.75 K/mm3 (0.9-3.2); Lymphocytes Percent Auto 9.6 % (18.3-44.2); Mean Corpuscular HGB Conc 30.5 g/dl (32-36); Mean Corpuscular Hemoglobin 30.1 pg (26-34); Mean Corpuscular Volume 98.5 fl (80-100); Mean Platelet Volume 9.7 fl (7.4-10.4); Monocytes Absolute Auto 1.1 K/mm3 (0.1-0.6); Monocytes Percent Auto 14.2 % (2.6-8.5); Neutrophils Absolute Auto 5.8 K/mm3 (1.3-6.7); Neutrophils Percent Auto 74.7 % (45.5-73.1); Platelet Count Result 221 k/mm3 (150-375); Red Blood Count 3.26 M/mm3 (4.2-5.4); Red Cell Distribution Width 14.7 % (11.5-14.5); White Blood Count 7.8 K/mm3 (4.5-10.0)
[2023-04-04 08:15] LABS: INR 1.2; Partial Thromboplastin Time 35.5 SECONDS (22.3-36.8); Prothrombin Time 15.9 Seconds (11.1-14.7)
[2023-04-04 08:17] LABS: Alanine Aminotransferase 14 U/L (6-35); Albumin Level 3.9 g/dL (3.5-5.1); Alkaline Phosphatase 77 U/L (38-126); Anion Gap 10 mmol/L (8-16); Aspartate Amino Transferase 19 U/L (14-36); Bilirubin,Total 0.6 mg/dL (0.2-1.3); Blood Urea Nitrogen 23 mg/dL (7-17); Carbon Dioxide 23 mmol/L (22-30); Chloride 106 mmol/L (98-107); Estimated CRCL calculation 31 ml/min; Estimated Glomerular Filt Rate 39; Glucose 112 mg/dL (65-110); Potassium 4.2 mmol/L (3.4-5.0); Sodium 139 mmol/L (137-145)
[2023-04-04 08:30] LABS: NT Pro B Type Natriuretic Pept 736 pg/mL (19.9-100); Troponin I < 0.012 ng/mL (0.000-0.034)
--- NOTE | 2023-04-04 08:43 | ED.GENADULT ---
HPI - General Adult General Chief complaint: Weakness Stated complaint: GEN WKNS, FALLS, COUGH, +COVID Time Seen by Provider: 04/04/23 07:05 Source: patient Limitations: no limitations History of Present Illness HPI narrative: Patient is an 87-year-old female present to the emergency department complaining of COVID symptoms. Patient states she was recently diagnosed with COVID and started having symptoms yesterday. Patient states she is having a runny nose, congestion, nonproductive cough, shortness of breath, generalized weakness, chest discomfort when she coughs. Patient denies fever, diarrhea, vomiting, abdominal pain, numbness, weakness, recent injuries. Patient denies to being vaccinated for COVID-19. Related Data Home Medications Medication Instructions Recorded Confirmed apixaban 2.5 mg tablet (Eliquis) 2.5 mg PO BID 01/08/22 08/02/22 diltiazem HCl 120 mg tablet 120 mg PO DAILY 01/08/22 08/02/22 levothyroxine 112 mcg tablet 112 mcg PO DAILY 01/08/22 08/02/22 metoprolol succinate 100 mg 100 mg PO DAILY 01/08/22 08/02/22 tablet,extended release 24 hr omeprazole 20 mg capsule,delayed 40 mg PO DAILY 01/08/22 08/02/22 release trospium 20 mg tablet 20 mg PO DAILY 01/08/22 08/02/22 atorvastatin 40 mg tablet 40 mg PO DAILY 08/02/22 08/02/22 doxycycline hyclate 100 mg tablet 100 mg PO BID 08/02/22 08/02/22 empagliflozin 10 mg tablet 10 mg PO DAILY 08/02/22 08/02/22 (Jardiance) ferrous sulfate 325 mg (65 mg 325 mg PO DAILY 08/02/22 08/02/22 iron) tablet furosemide 40 mg tablet 40 mg PO DAILY 08/02/22 08/02/22 losartan 50 mg tablet 50 mg PO DAILY 08/02/22 08/02/22 potassium chloride 20 mEq 20 meq PO EVERY OTHER DAY 08/02/22 08/02/22 tablet,extended release Allergies Allergy/AdvReac Type Severity Reaction Status Date / Time No Known Allergies Allergy Mild Unverified 11/08/21 11:38 Review of Systems Review of Systems: A 10 system review of systems was completed on the patient and is negative except for what is stated in the HPI. Nursing and ancillary documentation was reviewed. [facility] Past Medical History Medical History (Updated 04/04/23 @ 10:46 by Romie Roblero DO) History of hypertension Hypothyroidism Surgical History Surgical History History of appendectomy History of hysterectomy History of open reduction and internal fixation (ORIF) procedure Left arm Social History Social History Smoking status: Never smoker Second hand tobacco smoke exposure: No Alcohol intake: never Substance use: never Substance use type: does not use Lack of Transportation: No Lack of Food: Never True Current Housing: I Have Housing Concerned About Future Housing: No Difficulty Paying Gas/Electric Bills: No Difficulty Paying for Meds: No Currently Unemployed: No Education: High School Diploma/GED Difficulty w/ Childcare or Family Care: No Gender identity (if verbalized by the patient): Female Spiritual care concerns: No Comments At time of signature, I have reviewed and agree with nursing past medical, surgical, social and family history unless otherwise noted. Please see the nursing chart for further information. There is no relevant family history pertinent to the presenting complaint. Exam Narrative: CONST: No acute distress. HENMT: Head is normocephalic and atraumatic. Dry mucous membranes. No posterior oropharynx erythema. Mild nasal congestion bilaterally with clear rhinorrhea. EYES: No conjunctival icterus, injection, or pallor. PERRL. NECK: No meningeal signs. No palpable cervical lymphadenopathy. RESP: Able to speak in full sentences. Normal respiratory effort. CTAB. CARDIO: Regular rate. Regular rhythm. 2+ DP and radial pulses bilaterally. GI: Nondistended. No tenderness to palpation. Soft. : No CVA tenderness to palpation. SKIN: No rashes or
[2023-04-04] MEDS: SODIUM CHLORIDE 0.9% IV 500 ML 999 ML IV CONT (09:03)
[2023-04-04 09:43] LABS: Influenza A QL RT-PCR Negative (Negative); Influenza B QL RT-PCR Negative (Negative); SARS-CoV-2 RNA PCR Positive (Negative)
--- NOTE | 2023-04-04 12:55 | PCCCNOTE ---
Pt. and family inquired about pt. being placed in a nursing facility because she is so weak and they are unable to care for her at this time. Pt. family preferred [facility]. Call placed to [facility], at the facility, physicians notes and face sheet faxed. They will accept her, her son Neri is going to transport her to the facility. Patient is Covid positive, I received a verbal consent for the preference sheet.
== END 2023-04-04 15:00 | disposition home or self-care (01) ==
PROVIDERS: Emergency Provider Student in an Organized Health Care Education/Training Program; PCP Internal Medicine
DX: U07.1 COVID-19 (principal); I10 Essential (primary) hypertension; E03.9 Hypothyroidism, unspecified
CPT/HCPCS: 36415; 70450; 71045; 71275; 80053; 83880; 84484; 85025; 85380; 85610; 85730; 87636; 93005; 96360; 99284; J7040; Q9967

== ENCOUNTER 2023-10-10 20:53 | Observation (INO) | payer MEDICARE, MEDICAID, SELFPAY ==
--- NOTE | ~2023-10-10 | XR_ITS ---
EXAMINATION: XR shoulder RT min 2V DATE: 10/10/2023 22:10 INDICATION: Right shoulder pain and limited range of motion post fall TECHNIQUE: AP internally and externally rotated, AP oblique externally rotated and transscapular Y vi ews of the right shoulder were obtained. COMPARISON: Chest radiograph dated 04/04/2023 FINDINGS: Chronic right rotator cuff arthropathy with cephalad subluxation of the humeral head and narrowing of the subacromial space which can be seen on the prior chest radiograph. No fracture. Severe right gle nohumeral and acromioclavicular osteoarthritis. Soft tissues are unremarkable. Right lung is clear. 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 No acute osseous abnormality. Reviewed, dictated and finalized at [facility]. IMPRESSION: Chronic right rotator cuff arthropathy with severe glenohumeral and acromioclav icular osteoarthritis. No acute osseous abnormality.
--- NOTE | ~2023-10-10 | CT_ITS ---
EXAMINATION: CT brain wo con DATE: 10/10/2023 22:27 INDICATION: Fall TECHNIQUE: Computed tomography (CT) of the head was performed without intravenous contrast. Sagittal and coronal reconstructions were performed. The mA was adjusted according to patient size. Iterative reconstruction technique was employed. The dose-length product was 681.00 mGy-cm. COMPARISON: head CT dated 04/04/23 FINDINGS: No fracture. There are old lacunar infarcts at the bilateral thalami and basal ganglia as well as in the right cerebellar hemisphere. No acute intracranial hemorrhage, acute infarction or abnormal extra axial fluid collection. There is moderate scattered white matter hypoattenuation consistent with chr onic small vessel ischemic disease. Symmetric prominence of the sulci and ventricles consistent with moderate age-appropriate diffuse cerebral and cerebellar volume loss. No significant change in a 9 x 6 x 8 mm calcified extra-axial likely dural based mass at the right parieto-occipital region consiste nt with a meningioma. No other masses identified. Changes of bilateral intraocular lens replacement. The orbits and mastoid air cells are normal. Mild mucosal thickening the bilateral ethmoid sinuses. IMPRESSION: 1. No fracture or acute intracranial process. 2. Small old lacunar infarcts at the right cerebellar hemisphere and bilateral basal ganglia and thal ami. 3. 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 4. Age-related changes including moderate diffuse volume loss and moderate scattered white matter hyp oattenuation consistent with chronic small vessel ischemic disease. Reviewed, dictated and finalized at [facility]. IMPRESSION: 1. No fracture or acute intracranial process. 2. Small old lacunar infarcts at the right cerebellar hemisphere and bilateral basal ganglia and thalami. 3. 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 4. Age-related changes including moderate diffuse volume loss and moderate scat tered white matter hypoattenuation consistent with chronic small vessel ischemi c disease.
--- NOTE | ~2023-10-10 | XR_ITS ---
EXAMINATION: XR chest 2V DATE: 10/14/2023 10:17 INDICATION: Fever. TECHNIQUE: Frontal and lateral views of the chest were obtained. COMPARISON: Chest single view 04/04/2023 FINDINGS: There is no pneumonia, pleural effusion, or pneumothorax. Cardiomegaly is noted. There is a moderate-sized hiatal hernia. There is a left shoulder arthroplasty. IMPRESSION: 1. Moderate-sized hiatal hernia. 2. Cardiomegaly. Reviewed, dictated and finalized at location A.
--- NOTE | ~2023-10-10 | CT_ITS ---
EXAMINATION: CT lumbar spine wo con DATE: 10/10/2023 22:27 INDICATION: Back pain post fall TECHNIQUE: Computed tomography (CT) of the lumbar spine was performed without intravenous contrast. A utomated exposure control and iterative reconstruction technique were employed. The dose-length produ ct was 681.00 mGy-cm. COMPARISON: None FINDINGS: 2 mm retrolisthesis L1 on L2. 4 mm anterolisthesis L4 on L5. Alignment is otherwise normal. There is chronic appearing mild posterior vertebral body height loss at L5. There is an acute appearing superi or endplate compression fracture at L1 with minimal central vertebral body height loss and linear sub endplate fracture line. No other fractures identified. Mild to moderate disc height loss with vacuum phenomena at L4-L5. Remaining disc heights are normal. Partially visualized hiatal hernia. Likely age -related mild bilateral renal atrophy. Paravertebral soft tissues are otherwise unremarkable. The fol lowing disc levels are specifically discussed: T12-L1: There is mild right facet joint osteoarthritis. There is no neural foraminal stenosis. There is no central canal stenosis. L1-L2: There is mild right and mild to moderate left facet joint osteoarthritis. There is mild bilate ral neural foraminal stenosis. There is no central canal stenosis. L2-L3: There is mild left and moderate right facet joint osteoarthritis. There is no neural foraminal stenosis. There is no central canal stenosis. L3-L4: Disc is bulging. There is mild bilateral facet joint osteoarthritis. There is mild bilateral n eural foraminal stenosis. There is mild central canal stenosis. L4-L5: Disc is bulging. There is severe bilateral facet joint osteoarthritis. There is moderate bilat eral neural foraminal stenosis. There is moderate central canal stenosis. L5-S1: Disc is bulging. There is moderate bilateral facet joint osteoarthritis. There is mild right a nd mild to moderate left neural foraminal stenosis. There is no central canal stenosis. IMPRESSION: 1. Mild lumbar spondylosis with acute L1 compression fracture with minimal central vertebral body hei ght loss. Reviewed, dictated and finalized at location A. IMPRESSION: 1. Mild lumbar spondylosis with acute L1 compression fracture with minimal cent ral vertebral body height loss.
[2023-10-10 20:54] VITALS: BP 156/85; PULSE 66; RESP 21; TEMP 36.4; O2SAT 97
--- NOTE | 2023-10-10 21:01 | ED.FALL ---
HPI - Fall General Chief Complaint: Fall <BLAS Abreu Last Filed: 10/11/23 02:36> Stated Complaint: BACK & RIGHT SHOULDER PAIN S/P FALL <BLAS Abreu Last Filed: 10/11/23 02:36> Time Seen by Provider: 10/10/23 20:56 <BLAS Abreu Last Filed: 10/11/23 02:36> Source: patient <BLAS Abreu Last Filed: 10/11/23 02:36> Mode of arrival: EMS <BLAS Abreu Last Filed: 10/11/23 02:36> Limitations: no limitations <BLAS Abreu Last Filed: 10/11/23 02:36> History of Present Illness HPI Narrative: This is an 87 year old female with PMH of AFib, HTN, hypothyroid who presents to the ED via EMS with chief complaint a fall around 1700 this evening. Patient reports that she normally uses a walker to ambulate. Today she states that she fell backwards while transitioning from a walker to her chair. Family are here and helping supplement the story. They did not witness the fall but they were able to get to her within a few minutes of her falling. Patient states that she isn't exactly sure how she fell but no she fell backwards onto her butt. Denies any further sites of pain or injury. Denies head injury or LOC. Family notes that patient has been in and out of rehab and has been seen by home PT, working on her strength and coordination. They state this is a work in progress and the most she has been able to do was get to the bathroom and back to her chair <BLAS Abreu Last Filed: 10/11/23 02:36> Related Data Home Medications: Home Medications Medication Instructions Recorded Confirmed apixaban 2.5 mg tablet (Eliquis) 2.5 mg PO BID 01/08/22 10/11/23 diltiazem HCl 120 mg tablet 120 mg PO DAILY 01/08/22 10/11/23 levothyroxine 112 mcg tablet 112 mcg PO DAILY 01/08/22 10/11/23 metoprolol succinate 100 mg 100 mg PO DAILY 01/08/22 10/11/23 tablet,extended release 24 hr omeprazole 20 mg capsule,delayed 20 mg PO DAILY 01/08/22 10/11/23 release trospium 20 mg tablet 20 mg PO DAILY 01/08/22 10/11/23 atorvastatin 40 mg tablet 40 mg PO DAILY 08/02/22 10/11/23 empagliflozin 10 mg tablet 10 mg PO DAILY 08/02/22 10/11/23 (Jardiance) ferrous sulfate 325 mg (65 mg 325 mg PO DAILY 08/02/22 10/11/23 iron) tablet furosemide 40 mg tablet 40 mg PO DAILY 08/02/22 10/11/23 losartan 50 mg tablet 50 mg PO DAILY 08/02/22 10/11/23 potassium chloride 20 mEq 20 meq PO EVERY OTHER DAY 08/02/22 10/11/23 tablet,extended release <Alessandro Garland PA-C - Last Filed: 10/11/23 02:36> Allergies/Adverse Reactions: Allergies Allergy/AdvReac Type Severity Reaction Status Date / Time No Known Allergies Allergy Mild Unverified 11/08/21 11:38 <Alessandro Garland PA-C - Last Filed: 10/11/23 02:36> Review of Systems Review of Systems: All systems as dictated in HPI <Alessandro Garland PA-C - Last Filed: 10/11/23 02:36> [facility] Past Medical History Medical History: Medical History (Updated 10/10/23 @ 23:33 by Todd Fajardo MD) History of hypertension Hypothyroidism <Alessandro Garland PA-C - Last Filed: 10/11/23 02:36> Surgical History Surgical History: Surgical History History of appendectomy History of hysterectomy History of open reduction and internal fixation (ORIF) procedure Left arm <BLAS Abreu Last Filed: 10/11/23 02:36> Family History Family History: Family History (Updated 10/11/23 @ 01:48 by Va Pina) Son Throat cancer Lung cancer <Alessandro Garland PA-C - Last Filed: 10/11/23 02:36> Social History Social History: Social History Smoking status: Never smoker Second hand tobacco smoke exposure: No Alcohol intake: never Substance use: never Substance use type: does not use Do You Feel Safe in your Home?: Yes Lack of Transportation: No Lack of Food: Never True
--- NOTE | 2023-10-10 21:06 | ECG_ITS ---
SEE SCANNED COPY FOR CONFIRMED REPORT MTDD
[2023-10-10] MEDS: ACETAMINOPHEN 325 MG TABLET 650 MG PO (21:15)
--- NOTE | 2023-10-10 21:22 | PC.NURSE ---
This RN alerted by family member that pt had fallen in bathroom. Pt found supine, eyes open, with snoring respirations, and loss of bladder. EDP Zych in triage at the time, notified, and taken to room 22.
[2023-10-10 22:41] LABS: Basophils Percent Auto 0.2 % (0.2-1.2); Eosinophils Absolute Auto 0.1 K/mm3 (0-0.3); Eosinophils Percent Auto 1.1 % (0-4.4); Hematocrit 33.5 % (37.0-47.0); Hemoglobin 10.8 g/dL (12.0-15.0); Immature Granulocyte Absolute 0.04 K/mm3 (0.00-0.031); Immature Granulocyte Percent A 0.4 % (0-0.5); Lymphocytes Absolute Auto 0.87 K/mm3 (0.9-3.2); Lymphocytes Percent Auto 9.2 % (18.3-44.2); Mean Corpuscular HGB Conc 32.2 g/dl (32-36); Mean Corpuscular Hemoglobin 30.3 pg (26-34); Mean Corpuscular Volume 94.1 fl (80-100); Mean Platelet Volume 9.7 fl (7.4-10.4); Monocytes Absolute Auto 0.8 K/mm3 (0.1-0.6); Monocytes Percent Auto 8.3 % (2.6-8.5); Neutrophils Absolute Auto 7.7 K/mm3 (1.3-6.7); Neutrophils Percent Auto 80.8 % (45.5-73.1); Platelet Count Result 204 k/mm3 (150-375); Red Blood Count 3.56 M/mm3 (4.2-5.4); Red Cell Distribution Width 15.9 % (11.5-14.5); White Blood Count 9.5 K/mm3 (4.5-10.0)
[2023-10-10 22:52] LABS: Alanine Aminotransferase 22 U/L (6-35); Albumin Level 4.4 g/dL (3.5-5.1); Alkaline Phosphatase 90 U/L (38-126); Anion Gap 8 mmol/L (4-12); Aspartate Amino Transferase 23 U/L (14-36); Bilirubin,Total 0.7 mg/dL (0.2-1.3); Blood Urea Nitrogen 37 mg/dL (7-17); Carbon Dioxide 26 mmol/L (22-30); Chloride 102 mmol/L (98-107); Estimated CRCL calculation 22 ml/min; Estimated Glomerular Filt Rate 36; Glucose 136 mg/dL (65-110); Potassium 4.9 mmol/L (3.4-5.0); Sodium 136 mmol/L (137-145)
[2023-10-10 23:03] LABS: Appearance Urine Clear (Clear); Bilirubin Urine Negative (Negative); Blood Urine Negative (Negative); Color Urine Yellow (Yellow); Glucose Urine UA 2+ mg/dL (Negative); Ketones Urine Negative (Negative); Leukocyte Esterase Ur Negative LEU/UL (Negative); Nitrate Urine Negative (Negative); Protein Urine Negative (Negative); Specific Grav Ur 1.015 (1.001-1.035); Urobilinogen Urine 0.2 mg/dL (<2.0); pH Urine 5.5 (5.0-9.0)
[2023-10-10 23:05] LABS: Add Urine Microscopic? NO
[2023-10-10 23:12] VITALS: BP 115/74; PULSE 69; RESP 19; O2SAT 99
--- NOTE | 2023-10-10 23:31 | PM.IMHP ---
H&P: HPI History of Present Illness Date/Time: 10/10/23 23:31 Chief Complaint: low back pain Narrative: patient is 87-year-old female with past medical history of atrial fibrillation, hypertension, hypothyroidism presented to the hospital complaining of fall at about 4:00 p.m. today. Patient states she has been feeling very unsteady on her feet recently uses a walker to ambulate but during that admission she fell started complaining of some low back pain. No hip pain no dizziness no chest pain no shortness of breath or difficulty urination. Patient currently on Eliquis and diltiazem. Patient also has history of hypothyroidism which she takes levothyroxine has been compliant with all the medications no diarrhea no abdominal pain Review of Systems Review of Systems: All systems reviewed & are unremarkable except as noted in HPI and below PMFSH Past Medical History Medical History (Updated 10/10/23 @ 23:33 by Todd Fajardo MD) History of hypertension Hypothyroidism Surgical History Surgical History History of appendectomy History of hysterectomy History of open reduction and internal fixation (ORIF) procedure Left arm Social History Social History Smoking status: Never smoker Second hand tobacco smoke exposure: No Alcohol intake: never Substance use: never Substance use type: does not use Lack of Transportation: No Lack of Food: Never True Current Housing: I Have Housing Concerned About Future Housing: No Difficulty Paying Gas/Electric Bills: No Difficulty Paying for Meds: No Currently Unemployed: No Education: High School Diploma/GED Difficulty w/ Childcare or Family Care: No Gender identity (if verbalized by the patient): Female Spiritual care concerns: No Meds Home Medications and Allergies Home Medications Medication Instructions Recorded Confirmed Type apixaban 2.5 mg tablet (Eliquis) 2.5 mg PO BID 01/08/22 08/02/22 History diltiazem HCl 120 mg tablet 120 mg PO DAILY 01/08/22 08/02/22 History levothyroxine 112 mcg tablet 112 mcg PO DAILY 01/08/22 08/02/22 History metoprolol succinate 100 mg 100 mg PO DAILY 01/08/22 08/02/22 History tablet,extended release 24 hr omeprazole 20 mg capsule,delayed 40 mg PO DAILY 01/08/22 08/02/22 History release trospium 20 mg tablet 20 mg PO DAILY 01/08/22 08/02/22 History atorvastatin 40 mg tablet 40 mg PO DAILY 08/02/22 08/02/22 History doxycycline hyclate 100 mg tablet 100 mg PO BID 08/02/22 08/02/22 History empagliflozin 10 mg tablet 10 mg PO DAILY 08/02/22 08/02/22 History (Jardiance) ferrous sulfate 325 mg (65 mg 325 mg PO DAILY 08/02/22 08/02/22 History iron) tablet furosemide 40 mg tablet 40 mg PO DAILY 08/02/22 08/02/22 History losartan 50 mg tablet 50 mg PO DAILY 08/02/22 08/02/22 History potassium chloride 20 mEq 20 meq PO EVERY OTHER DAY 08/02/22 08/02/22 History tablet,extended release oxycodone 5 mg tablet 2.5 mg PO Q4H PRN pain #30 tabs 08/04/22 Rx ferrous sulfate 142 mg (45 mg 142 mg PO DAILY #30 tabs 08/05/22 Rx iron) tablet,extended release (Slow Release Iron) polyethylene glycol 3350 17 gram 17 g PO QAM #30 ea 08/05/22 Rx oral powder packet (Miralax) sodium chloride 0.65 % nasal spray 1 spray intranasal Q6HR PRN 08/13/22 Rx aerosol (Saline Mist) Congestion #10 mL acetaminophen 500 mg tablet 500 mg PO Q6H PRN pain #30 tabs 04/04/23 Rx acetaminophen 500 mg tablet 500 mg PO Q6H PRN pain #30 tabs 04/04/23 Rx nirmatrelvir 150 mg-ritonavir 100 See Rx Instructions PO .COMPLEX 04/04/23 Rx mg tablets in a dose pack #20 ea (Paxlovid) nirmatrelvir 150 mg-ritonavir 100 See Rx Instructions PO .COMPLEX 04/04/23 Rx mg tablets in a dose pack #20 ea (Paxlovid) Allergies Allergy/AdvReac Type Severity Reaction Status Date / Time No Known Allergies Allergy Mild Unverifi
[2023-10-11] VITALS (11 sets, daily range): BP systolic 108–146; BP diastolic 48–98; PULSE 53–74; RESP 16–20; TEMP 35.5–37.1; O2SAT 92–97; BMI 37.2
--- NOTE | 2023-10-11 00:49 | ADMGEN ---
This patient, Janet Galvez, was admitted to 3 [facility] Surg Room 312-01 at 0045. Patient/family oriented to hospital policies and general routines including ID bracelet, bed and alarms, visiting hours, pain management, procedures, bathroom and other care routines, personal items, smoking policy, room service/diet, and visiting hours. Information on how to activate the Rapid Response Team has been discussed. Patient/Family are encouraged to report perceived risks to care and to ask questions if they do not understand what they are told or what they should do.
[2023-10-11] MEDS: HYDROmorphone HCL INJ (*CRX) 1 MG/ML SYR 0.5 MG IV PUSH (01:00)
[2023-10-11] MEDS: HYDROcodone/acetaminophen (*CRX) 5-325 MG TABLET 1 TAB PO ×4 (01:58→22:17)
[2023-10-11] MEDS: ONDANSETRON INJ 4 MG/2 ML VIAL IV PUSH (05:04)
[2023-10-11] MEDS: ACETAMINOPHEN 325 MG TABLET 650 MG PO (05:39)
[2023-10-11 06:06] LABS: Basophils Percent Auto 0.3 % (0.2-1.2); Eosinophils Absolute Auto 0.1 K/mm3 (0-0.3); Eosinophils Percent Auto 1.4 % (0-4.4); Hematocrit 33.7 % (37.0-47.0); Hemoglobin 10.3 g/dL (12.0-15.0); Immature Granulocyte Absolute 0.04 K/mm3 (0.00-0.031); Immature Granulocyte Percent A 0.5 % (0-0.5); Lymphocytes Absolute Auto 0.85 K/mm3 (0.9-3.2); Lymphocytes Percent Auto 10.7 % (18.3-44.2); Mean Corpuscular HGB Conc 30.6 g/dl (32-36); Mean Corpuscular Hemoglobin 29.4 pg (26-34); Mean Corpuscular Volume 96.3 fl (80-100); Mean Platelet Volume 9.8 fl (7.4-10.4); Monocytes Absolute Auto 0.7 K/mm3 (0.1-0.6); Monocytes Percent Auto 9.3 % (2.6-8.5); Neutrophils Absolute Auto 6.2 K/mm3 (1.3-6.7); Neutrophils Percent Auto 77.8 % (45.5-73.1); Platelet Count Result 189 k/mm3 (150-375); Red Cell Distribution Width 15.9 % (11.5-14.5); White Blood Count 7.9 K/mm3 (4.5-10.0)
[2023-10-11 06:13] LABS: Anion Gap 7 mmol/L (4-12); Blood Urea Nitrogen 34 mg/dL (7-17); Calcium 8.8 mg/dL (8.4-10.2); Carbon Dioxide 27 mmol/L (22-30); Chloride 104 mmol/L (98-107); Estimated CRCL calculation 30 ml/min; Estimated Glomerular Filt Rate 39; Glucose 133 mg/dL (65-110); Potassium 4.6 mmol/L (3.4-5.0); Sodium 138 mmol/L (137-145)
[2023-10-11] MEDS: DOCUSATE SODIUM 100 MG CAPSULE PO ×2 (08:09→20:06)
--- NOTE | 2023-10-11 10:16 | PM.IMPN ---
Progress Note: A&P Assessment and Plan (1) Fall: Code(s): W19.XXXA - Unspecified fall, initial encounter Status: Acute Assessment and Plan: Patient sustained a fall yesterday when transitioning from the walker to a chair she fell backwards falling on her buttocks. Right shoulder x-ray showed chronic right rotator cuff arthroplasty with severe glenohumeral and AC osteoarthritis. 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 Lumbar spine x-ray showed bulge disc and L3-L4, L4-L5, L5 to the S1, mild lumbar spondylosis with acute L1 compression fracture with minimal central vertebral body height loss PT and OT ordered Case management following for outpatient rehab needs Continue fall precautions Continue pain control (2) Compression fracture of L1 lumbar vertebra: Code(s): S32.010A - Wedge compression fracture of first lumbar vertebra, initial encounter for closed fracture Status: Acute Assessment and Plan: TLSO brace ordered PT and OT ordered Continue pain control Neurosurgery consulted (3) Acute pain of right knee: Code(s): M25.561 - Pain in right knee Status: Acute Assessment and Plan: Continue pain control with [employer] (4) Inability to ambulate due to knee: Code(s): R26.2 - Difficulty in walking, not elsewhere classified Status: Acute Assessment and Plan: PT and OT ordered Continue pain control Case Management following for outpatient rehab needs (5) Atrial fibrillation: Code(s): I48.91 - Unspecified atrial fibrillation Status: Chronic Assessment and Plan: Continue Eliquis and metoprolol (6) Hypertension: Code(s): I10 - Essential (primary) hypertension Status: Chronic Assessment and Plan: Continue losartan (7) Hypothyroidism: Code(s): E03.9 - Hypothyroidism, unspecified Status: Chronic Assessment and Plan: Continue Synthroid Time Spent With Patient Time with patient: Greater than 35 minutes Subjective Date/time seen: 10/11/23 10:16 Interval history: This is an 87-year-old female who presented to the hospital 10/10/2023 for evaluation after a fall. Patient normally uses a walker to ambulate and was transitioning from a walker to her chair when she fell backwards. Workup in the hospital included a right shoulder x-ray which showed chronic right rotator cuff arthroplasty with severe glenohumeral and AC osteoarthritis. Head CT was negative for any acute intracranial fracture, showed small old lacunar infarcts at the right cerebellar hemisphere in bilateral basal ganglia and thalami, extra-axial 9 mm calcified right parieto-occipital meningioma, age-related changes. Lumbar spine CT showed mild lumbar spondylosis with acute L1 compression fracture with minimal central vertebral body height loss. Initial labs showed a normal white blood cell count of 9.5, hemoglobin 10.8, sodium 136, creatinine 1.4, EGFR 36. A UA was obtained which showed 2+ urine glucose otherwise negative. On examination today patient is alert and oriented x3, lying in the bed. She denies any fever, chills, nausea, vomiting, diarrhea, abdominal pain, chest pain, shortness a breath. She reports 8/10 pain in her back. Labs today showed a hemoglobin of 10.3, creatinine 1.3, EGFR 39. Plan for PT and OT to work with patient today. transcription coordinator consulted for outpatient rehab needs. Review of Systems Review of Systems: All systems reviewed & are unremarkable except as noted in HPI and below Constitutional: Constitutional: Reports as per HPI and Reports no additional constitutional complaints Eyes: Eyes: Reports as per HPI and Reports no additional eye complaints ENT: Reports system reviewed and no additional complaint
[2023-10-11] MEDS: FUROSEMIDE 40 MG TABLET PO (11:09)
[2023-10-11] MEDS: LEVOTHYROXINE SODIUM 112 MCG TABLET PO (11:09)
[2023-10-11] MEDS: dilTIAZem HCL CD 120 MG CAP.24HR PO (11:09)
[2023-10-11] MEDS: ATORVASTATIN 40 MG TABLET PO (11:09)
[2023-10-11] MEDS: LOSARTAN POTASSIUM 50 MG TABLET PO (11:09)
[2023-10-11] MEDS: EMPAGLIFLOZIN 10 MG TABLET PO (11:09)
[2023-10-11] MEDS: METOPROLOL SUCCINATE EXT REL 100 MG TABCR PO (11:09)
--- NOTE | 2023-10-11 18:10 | WPDNEUROSGCN ---
Assessment and Plan Assessment and plan (1) Compression fracture of L1 lumbar vertebra: Code(s): S32.010A - Wedge compression fracture of first lumbar vertebra, initial encounter for closed fracture Status: Acute Plan Ms. Galvez is an 87-year-old female with osteoporosis who sustained an L1 compression fracture after a fall last night. She has isolated back pain but no lower-extremity symptoms. CT shows an L1 compression fracture without significant loss of height or kyphosis. I have contacted [facility] about fitting her for a TLSO brace. She should wear this when upright and out of bed. She should avoid NSAIDs as these can interfere with bone healing. I will arrange for follow up with me in clinic. I would also highly recommend that she speak with her PCP about treatment for osteoporosis as she does not seem to be on any medications for it at this time. Consult date: 10/11/23 HPI: Janet Galvez is a 87 year old female with history of Afib on Eliquis, osteoporosis, COPD, DM, HTN, hypothyroidism who presented to the ER last night from home after a fall. Her son went to check on her yesterday evening and found her in severe pain in her back and right arm. Her niece thinks she had a fall. She denies pain or paresthesias in the legs. She is moving her legs and voiding well. She notably has osteoporosis. Review of Systems Review of Systems: All systems reviewed & are unremarkable except as noted in HPI and below PMFSH Past Medical History Medical History (Updated 10/11/23 @ 10:30 by Yas Blake APRN) History of hypertension Hypothyroidism Surgical History Surgical History History of appendectomy History of hysterectomy History of open reduction and internal fixation (ORIF) procedure Left arm Family History Family History (Updated 10/11/23 @ 01:48 by Va Pina) Son Throat cancer Lung cancer Social History Social History Smoking status: Never smoker Second hand tobacco smoke exposure: No Alcohol intake: never Substance use: never Substance use type: does not use Do You Feel Safe in your Home?: Yes Lack of Transportation: No Lack of Food: Never True Current Housing: I Have Housing Concerned About Future Housing: No Difficulty Paying Gas/Electric Bills: No Difficulty Paying for Meds: No Currently Unemployed: No Education: High School Diploma/GED Difficulty w/ Childcare or Family Care: No Gender identity (if verbalized by the patient): Female Spiritual care concerns: No Meds Home Medications and Allergies Home Medications Medication Instructions Recorded Confirmed Type apixaban 2.5 mg tablet (Eliquis) 2.5 mg PO BID 01/08/22 10/11/23 History diltiazem HCl 120 mg tablet 120 mg PO DAILY 01/08/22 10/11/23 History levothyroxine 112 mcg tablet 112 mcg PO DAILY 01/08/22 10/11/23 History metoprolol succinate 100 mg 100 mg PO DAILY 01/08/22 10/11/23 History tablet,extended release 24 hr omeprazole 20 mg capsule,delayed 20 mg PO DAILY 01/08/22 10/11/23 History release trospium 20 mg tablet 20 mg PO DAILY 01/08/22 10/11/23 History atorvastatin 40 mg tablet 40 mg PO DAILY 08/02/22 10/11/23 History empagliflozin 10 mg tablet 10 mg PO DAILY 08/02/22 10/11/23 History ([place]) ferrous sulfate 325 mg (65 mg 325 mg PO DAILY 08/02/22 10/11/23 History iron) tablet furosemide 40 mg tablet 40 mg PO DAILY 08/02/22 10/11/23 History losartan 50 mg tablet 50 mg PO DAILY 08/02/22 10/11/23 History potassium chloride 20 mEq 20 meq PO EVERY OTHER DAY 08/02/22 10/11/23 History tablet,extended release acetaminophen 500 mg tablet 500 mg PO Q6H PRN pain #30 tabs 04/04/23 10/11/23 Rx Allergies Allergy/AdvReac Type Severity Reaction Status Date / Time No Known Allergies Allergy Mild Unverified 11/08/21 11:38 Vital Signs Vital Signs - 24 hr 05
--- NOTE | 2023-10-11 18:36 | PHAR ---
PT'S HOME MED TROSPIUM 20 MG TAB VERIFIED BY PHARMACY
[2023-10-11] MEDS: APIXABAN 2.5 MG TABLET PO (20:06)
[2023-10-12] VITALS (13 sets, daily range): BP systolic 123–136; BP diastolic 47–51; PULSE 53–65; RESP 16–20; TEMP 36.1–36.8; O2SAT 92–98
[2023-10-12] MEDS: HYDROcodone/acetaminophen (*CRX) 5-325 MG TABLET 1 TAB PO ×4 (02:15→22:42)
[2023-10-12] MEDS: LEVOTHYROXINE SODIUM 112 MCG TABLET PO (05:54)
[2023-10-12 06:12] LABS: Basophils Percent Auto 0.3 % (0.2-1.2); Eosinophils Absolute Auto 0.2 K/mm3 (0-0.3); Eosinophils Percent Auto 2.7 % (0-4.4); Hematocrit 30.4 % (37.0-47.0); Hemoglobin 9.6 g/dL (12.0-15.0); Immature Granulocyte Absolute 0.03 K/mm3 (0.00-0.031); Immature Granulocyte Percent A 0.4 % (0-0.5); Lymphocytes Absolute Auto 1.07 K/mm3 (0.9-3.2); Lymphocytes Percent Auto 13.9 % (18.3-44.2); Mean Corpuscular HGB Conc 31.6 g/dl (32-36); Mean Corpuscular Hemoglobin 30.1 pg (26-34); Mean Corpuscular Volume 95.3 fl (80-100); Monocytes Absolute Auto 0.8 K/mm3 (0.1-0.6); Monocytes Percent Auto 10.2 % (2.6-8.5); Neutrophils Absolute Auto 5.6 K/mm3 (1.3-6.7); Neutrophils Percent Auto 72.5 % (45.5-73.1); Platelet Count Result 181 k/mm3 (150-375); Red Blood Count 3.19 M/mm3 (4.2-5.4); White Blood Count 7.7 K/mm3 (4.5-10.0)
[2023-10-12 07:16] LABS: Alanine Aminotransferase 17 U/L (6-35); Albumin Level 3.4 g/dL (3.5-5.1); Alkaline Phosphatase 77 U/L (38-126); Anion Gap 5 mmol/L (4-12); Aspartate Amino Transferase 28 U/L (14-36); Bilirubin,Total 0.5 mg/dL (0.2-1.3); Blood Urea Nitrogen 40 mg/dL (7-17); Calcium 8.4 mg/dL (8.4-10.2); Carbon Dioxide 28 mmol/L (22-30); Chloride 103 mmol/L (98-107); Estimated CRCL calculation 30 ml/min; Estimated Glomerular Filt Rate 39; Glucose 107 mg/dL (65-110); Potassium 4.5 mmol/L (3.4-5.0); Sodium 136 mmol/L (137-145)
[2023-10-12] MEDS: APIXABAN 2.5 MG TABLET PO ×2 (08:19→20:31)
[2023-10-12] MEDS: ATORVASTATIN 40 MG TABLET PO (08:19)
[2023-10-12] MEDS: DOCUSATE SODIUM 100 MG CAPSULE PO ×2 (08:19→20:32)
[2023-10-12] MEDS: LOSARTAN POTASSIUM 50 MG TABLET PO (08:20)
[2023-10-12] MEDS: FUROSEMIDE 40 MG TABLET PO (08:20)
[2023-10-12] MEDS: dilTIAZem HCL CD 120 MG CAP.24HR PO (08:20)
[2023-10-12] MEDS: FERROUS SULFATE 325 MG TABLET DR PO (08:20)
[2023-10-12] MEDS: EMPAGLIFLOZIN 10 MG TABLET PO (08:20)
[2023-10-12] MEDS: METOPROLOL SUCCINATE EXT REL 100 MG TABCR PO (08:20)
[2023-10-12] MEDS: TROSPIUM CHLORIDE 20 MG 1 EACH PO (09:47)
--- NOTE | 2023-10-12 12:01 | PM.IMPN ---
Progress Note: A&P Assessment and Plan (1) Fall: Code(s): W19.XXXA - Unspecified fall, initial encounter Status: Acute Assessment and Plan: (2) Compression fracture of L1 lumbar vertebra: Code(s): S32.010A - Wedge compression fracture of first lumbar vertebra, initial encounter for closed fracture Status: Acute Assessment and Plan: (3) Acute pain of right knee: Code(s): M25.561 - Pain in right knee Status: Acute Assessment and Plan: (4) Inability to ambulate due to knee: Code(s): R26.2 - Difficulty in walking, not elsewhere classified Status: Acute Assessment and Plan: (5) Atrial fibrillation: Code(s): I48.91 - Unspecified atrial fibrillation Status: Chronic Assessment and Plan: (6) Hypertension: Code(s): I10 - Essential (primary) hypertension Status: Chronic Assessment and Plan: (7) Hypothyroidism: Code(s): E03.9 - Hypothyroidism, unspecified Status: Chronic Assessment and Plan: Plan This is an 87-year-old female who presented to the hospital 10/10/2023 for evaluation after a fall. Patient normally uses a walker to ambulate and was transitioning from a walker to her chair when she fell backwards. Workup in the hospital included a right shoulder x-ray which showed chronic right rotator cuff arthroplasty with severe glenohumeral and AC osteoarthritis. Head CT was negative for any acute intracranial fracture, showed small old lacunar infarcts at the right cerebellar hemisphere in bilateral basal ganglia and thalami, extra-axial 9 mm calcified right parieto-occipital meningioma, age-related changes. Lumbar spine CT showed mild lumbar spondylosis with acute L1 compression fracture with minimal central vertebral body height loss. Initial labs showed a normal white blood cell count of 9.5, hemoglobin 10.8, sodium 136, creatinine 1.4, EGFR 36. A UA was obtained which showed 2+ urine glucose otherwise negative.Neurosurgery has been consulted. Advised TLSO braceShe has not obtained yet. PT OT to see likely needs placement. follow-up withNeurosurgery as outpatient basis. Chronic anemia CKD stage IIIChronic congestive heart failure hypothyroidism hypertension defibrillation chronic any correlation with Eliquis Subjective Date/time seen: 10/12/23 12:01 Interval history: This is an 87-year-old female who presented to the hospital 10/10/2023 for evaluation after a fall. Patient normally uses a walker to ambulate and was transitioning from a walker to her chair when she fell backwards. Workup in the hospital included a right shoulder x-ray which showed chronic right rotator cuff arthroplasty with severe glenohumeral and AC osteoarthritis. Head CT was negative for any acute intracranial fracture, showed small old lacunar infarcts at the right cerebellar hemisphere in bilateral basal ganglia and thalami, extra-axial 9 mm calcified right parieto-occipital meningioma, age-related changes. Lumbar spine CT showed mild lumbar spondylosis with acute L1 compression fracture with minimal central vertebral body height loss. Initial labs showed a normal white blood cell count of 9.5, hemoglobin 10.8, sodium 136, creatinine 1.4, EGFR 36. A UA was obtained which showed 2+ urine glucose otherwise negative.Neurosurgery has been consulted. Advised TLSO braceShe has not obtained yet. PT OT to see likely needs placement. follow-up withNeurosurgery as outpatient basis. Chronic anemia CKD stage III Review of Systems Review of Systems: All systems reviewed & are unremarkable except as noted in HPI and below Exam Narrative: General: In no acute distress, well nourished Head: atraumatic, no encephalopathy Eyes: EOMI, PERRLA, sclera clear ENT: moist mucous membranes, nasal passages clear Neck: supple, no JVD, no adenopathy, trachea midline Cardiac: Normal S1 and S2. No murmur, gallops or friction rubs,
[2023-10-12] MEDS: HYDROmorphone HCL INJ (*CRX) 1 MG/ML SYR 0.5 MG IV PUSH (16:38)
[2023-10-12] MEDS: ONDANSETRON INJ 4 MG/2 ML VIAL IV PUSH (16:46)
[2023-10-13] VITALS (12 sets, daily range): BP systolic 111–128; BP diastolic 52–75; PULSE 54–66; RESP 14–16; TEMP 36.2–38.2; O2SAT 0–100
[2023-10-13] MEDS: HYDROcodone/acetaminophen (*CRX) 5-325 MG TABLET 1 TAB PO ×3 (03:09→23:41)
[2023-10-13] MEDS: LEVOTHYROXINE SODIUM 112 MCG TABLET PO (05:26)
[2023-10-13 06:29] LABS: Alanine Aminotransferase 16 U/L (6-35); Albumin Level 3.4 g/dL (3.5-5.1); Alkaline Phosphatase 77 U/L (38-126); Anion Gap 3 mmol/L (4-12); Aspartate Amino Transferase 23 U/L (14-36); Bilirubin,Total 0.7 mg/dL (0.2-1.3); Blood Urea Nitrogen 32 mg/dL (7-17); Calcium 8.5 mg/dL (8.4-10.2); Carbon Dioxide 31 mmol/L (22-30); Chloride 101 mmol/L (98-107); Estimated CRCL calculation 30 ml/min; Estimated Glomerular Filt Rate 39; Glucose 104 mg/dL (65-110); Potassium 4.5 mmol/L (3.4-5.0); Sodium 135 mmol/L (137-145)
[2023-10-13 06:30] LABS: Basophils Percent Auto 0.3 % (0.2-1.2); Eosinophils Absolute Auto 0.2 K/mm3 (0-0.3); Eosinophils Percent Auto 2.4 % (0-4.4); Hematocrit 31.5 % (37.0-47.0); Hemoglobin 9.8 g/dL (12.0-15.0); Immature Granulocyte Absolute 0.02 K/mm3 (0.00-0.031); Immature Granulocyte Percent A 0.3 % (0-0.5); Lymphocytes Absolute Auto 0.76 K/mm3 (0.9-3.2); Lymphocytes Percent Auto 10.1 % (18.3-44.2); Mean Corpuscular HGB Conc 31.1 g/dl (32-36); Mean Corpuscular Hemoglobin 29.8 pg (26-34); Mean Corpuscular Volume 95.7 fl (80-100); Mean Platelet Volume 10.3 fl (7.4-10.4); Monocytes Absolute Auto 0.9 K/mm3 (0.1-0.6); Monocytes Percent Auto 12.1 % (2.6-8.5); Neutrophils Absolute Auto 5.6 K/mm3 (1.3-6.7); Neutrophils Percent Auto 74.8 % (45.5-73.1); Platelet Count Result 173 k/mm3 (150-375); Red Blood Count 3.29 M/mm3 (4.2-5.4); Red Cell Distribution Width 15.9 % (11.5-14.5); White Blood Count 7.5 K/mm3 (4.5-10.0)
[2023-10-13] MEDS: APIXABAN 2.5 MG TABLET PO ×2 (09:22→20:39)
[2023-10-13] MEDS: ACETAMINOPHEN 325 MG TABLET 650 MG PO (09:22)
[2023-10-13] MEDS: ATORVASTATIN 40 MG TABLET PO (09:22)
[2023-10-13] MEDS: EMPAGLIFLOZIN 10 MG TABLET PO (09:22)
[2023-10-13] MEDS: METOPROLOL SUCCINATE EXT REL 100 MG TABCR PO (09:23)
[2023-10-13] MEDS: FUROSEMIDE 40 MG TABLET PO (09:23)
[2023-10-13] MEDS: LOSARTAN POTASSIUM 50 MG TABLET PO (09:23)
[2023-10-13] MEDS: DOCUSATE SODIUM 100 MG CAPSULE PO ×2 (09:30→20:39)
[2023-10-13] MEDS: FERROUS SULFATE 325 MG TABLET DR PO (09:30)
[2023-10-13] MEDS: dilTIAZem HCL CD 120 MG CAP.24HR PO (09:30)
[2023-10-13] MEDS: TROSPIUM CHLORIDE 20 MG 1 EACH PO (09:31)
[2023-10-13] MEDS: HYDROmorphone HCL INJ (*CRX) 1 MG/ML SYR 0.5 MG IV PUSH (11:49)
--- NOTE | 2023-10-13 11:50 | P.PNIM_ITS ---
Progress Note: A&P Assessment and Plan (1) Fall: Code(s): W19.XXXA - Unspecified fall, initial encounter Status: Acute Assessment and Plan: 10/11/23 * Patient sustained a fall yesterday when transitioning from the walker to a chair she fell backwards falling on her buttocks. * Right shoulder x-ray showed chronic right rotator cuff arthroplasty with severe glenohumeral and AC osteoarthritis. 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 * Lumbar spine x-ray showed bulge disc and L3-L4, L4-L5, L5 to the S1, mild lumbar spondylosis with acute L1 compression fracture with minimal central vertebral body height loss * PT and OT ordered * Case management following for outpatient rehab needs * Continue fall precautions * Continue pain control 10/13/23: * Continue TLSO brace * Continue PT and OT * Case coordination following for outpatient rehab needs, awaiting placement (2) Compression fracture of L1 lumbar vertebra: Code(s): S32.010A - Wedge compression fracture of first lumbar vertebra, initial encounter for closed fracture Status: Acute Assessment and Plan: 10/11/23: * TLSO brace ordered * PT and OT ordered * Continue pain control * Neurosurgery consulted 10/13/23: * No change to current treatment (3) Acute pain of right knee: Code(s): M25.561 - Pain in right knee Status: Acute Assessment and Plan: 10/11/23: * Continue pain control with [place] 10/13/23: * No change to current plan (4) Inability to ambulate due to knee: Code(s): R26.2 - Difficulty in walking, not elsewhere classified Status: Acute Assessment and Plan: 10/11/23: * PT and OT ordered * Continue pain control * Case Management following for outpatient rehab needs 10/13/23: * No change to current treatment plan (5) Atrial fibrillation: Code(s): I48.91 - Unspecified atrial fibrillation Status: Chronic Assessment and Plan: 10/11/23: * Continue Eliquis and metoprolol 10/13/23: * No change to current treatment plan (6) Hypertension: Code(s): I10 - Essential (primary) hypertension Status: Chronic Assessment and Plan: 10/11/23: * Continue losartan 10/13/23: * No change to current treatment plan (7) Hypothyroidism: Code(s): E03.9 - Hypothyroidism, unspecified Status: Chronic Assessment and Plan: 10/11/23: * Continue Synthroid 10/13/23: * No change to current treatment plan Time Spent With Patient Time with patient: 25 - 35 minutes Subjective Date/time seen: 10/13/23 11:50 Interval history: 10/11/23: This is an 87-year-old female who presented to the hospital 10/10/2023 for evaluation after a fall. Patient normally uses a walker to ambulate and was transitioning from a walker to her chair when she fell backwards. Workup in the hospital included a right shoulder x-ray which showed chronic right rotator cuff arthroplasty with severe glenohumeral and AC osteoarthritis. Head CT was negative for any acute intracranial fracture, showed small old lacunar infarcts at the right cerebellar hemisphere in bilateral basal ganglia and thalami, extra-axial 9 mm calcified right parieto-occipital meningioma, age-related changes. Lumbar spine CT showed mild lumbar spondylosis with acute L1 compression fracture with minimal
--- NOTE | 2023-10-13 11:50 | PM.IMPN ---
Progress Note: A&P Assessment and Plan (1) Fall: Code(s): W19.XXXA - Unspecified fall, initial encounter Status: Acute Assessment and Plan: 10/11/23 Patient sustained a fall yesterday when transitioning from the walker to a chair she fell backwards falling on her buttocks. Right shoulder x-ray showed chronic right rotator cuff arthroplasty with severe glenohumeral and AC osteoarthritis. 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 Lumbar spine x-ray showed bulge disc and L3-L4, L4-L5, L5 to the S1, mild lumbar spondylosis with acute L1 compression fracture with minimal central vertebral body height loss PT and OT ordered Case management following for outpatient rehab needs Continue fall precautions Continue pain control 10/13/23: Continue TLSO brace Continue PT and OT Case coordination following for outpatient rehab needs, awaiting placement (2) Compression fracture of L1 lumbar vertebra: Code(s): S32.010A - Wedge compression fracture of first lumbar vertebra, initial encounter for closed fracture Status: Acute Assessment and Plan: 10/11/23: TLSO brace ordered PT and OT ordered Continue pain control Neurosurgery consulted 10/13/23: No change to current treatment (3) Acute pain of right knee: Code(s): M25.561 - Pain in right knee Status: Acute Assessment and Plan: 10/11/23: Continue pain control with [place] 10/13/23: No change to current plan (4) Inability to ambulate due to knee: Code(s): R26.2 - Difficulty in walking, not elsewhere classified Status: Acute Assessment and Plan: 10/11/23: PT and OT ordered Continue pain control Case Management following for outpatient rehab needs 10/13/23: No change to current treatment plan (5) Atrial fibrillation: Code(s): I48.91 - Unspecified atrial fibrillation Status: Chronic Assessment and Plan: 10/11/23: Continue Eliquis and metoprolol 10/13/23: No change to current treatment plan (6) Hypertension: Code(s): I10 - Essential (primary) hypertension Status: Chronic Assessment and Plan: 10/11/23: Continue losartan 10/13/23: No change to current treatment plan (7) Hypothyroidism: Code(s): E03.9 - Hypothyroidism, unspecified Status: Chronic Assessment and Plan: 10/11/23: Continue Synthroid 10/13/23: No change to current treatment plan Time Spent With Patient Time with patient: 25 - 35 minutes Subjective Date/time seen: 10/13/23 11:50 Interval history: 10/11/23: This is an 87-year-old female who presented to the hospital 10/10/2023 for evaluation after a fall. Patient normally uses a walker to ambulate and was transitioning from a walker to her chair when she fell backwards. Workup in the hospital included a right shoulder x-ray which showed chronic right rotator cuff arthroplasty with severe glenohumeral and AC osteoarthritis. Head CT was negative for any acute intracranial fracture, showed small old lacunar infarcts at the right cerebellar hemisphere in bilateral basal ganglia and thalami, extra-axial 9 mm calcified right parieto-occipital meningioma, age-related changes. Lumbar spine CT showed mild lumbar spondylosis with acute L1 compression fracture with minimal central vertebral body height loss. Initial labs showed a normal white blood cell count of 9.5, hemoglobin 10.8, sodium 136, creatinine 1.4, EGFR 36. A UA was obtained which showed 2+ urine glucose otherwise negative. On examination today patient is alert and oriented x3, lying in the bed. She denies any fever, chills, nausea, vomiting, diarrhea, abdominal pain, chest pain, shortness a breath. She reports 8/10 pain in her back. Labs today showed a hemoglobin of 10.3, cr
[2023-10-14] VITALS (8 sets, daily range): BP systolic 118–129; BP diastolic 48–54; PULSE 54–72; RESP 16–20; TEMP 36.8–37.2; O2SAT 93–98
[2023-10-14] MEDS: HYDROcodone/acetaminophen (*CRX) 5-325 MG TABLET 1 TAB PO ×3 (05:49→18:46)
[2023-10-14] MEDS: LEVOTHYROXINE SODIUM 112 MCG TABLET PO (05:49)
[2023-10-14 06:51] LABS: Basophils Percent Auto 0.3 % (0.2-1.2); Eosinophils Absolute Auto 0.2 K/mm3 (0-0.3); Eosinophils Percent Auto 1.9 % (0-4.4); Hematocrit 31.6 % (37.0-47.0); Hemoglobin 9.8 g/dL (12.0-15.0); Immature Granulocyte Absolute 0.05 K/mm3 (0.00-0.031); Immature Granulocyte Percent A 0.6 % (0-0.5); Lymphocytes Absolute Auto 0.94 K/mm3 (0.9-3.2); Lymphocytes Percent Auto 10.9 % (18.3-44.2); Mean Corpuscular Hemoglobin 29.4 pg (26-34); Mean Corpuscular Volume 94.9 fl (80-100); Mean Platelet Volume 9.9 fl (7.4-10.4); Monocytes Absolute Auto 0.9 K/mm3 (0.1-0.6); Monocytes Percent Auto 10.9 % (2.6-8.5); Neutrophils Absolute Auto 6.5 K/mm3 (1.3-6.7); Neutrophils Percent Auto 75.4 % (45.5-73.1); Platelet Count Result 182 k/mm3 (150-375); Red Blood Count 3.33 M/mm3 (4.2-5.4); Red Cell Distribution Width 15.9 % (11.5-14.5); White Blood Count 8.6 K/mm3 (4.5-10.0)
[2023-10-14 06:58] LABS: Alanine Aminotransferase 17 U/L (6-35); Albumin Level 3.5 g/dL (3.5-5.1); Alkaline Phosphatase 76 U/L (38-126); Anion Gap 3 mmol/L (4-12); Aspartate Amino Transferase 22 U/L (14-36); Bilirubin,Total 0.7 mg/dL (0.2-1.3); Blood Urea Nitrogen 32 mg/dL (7-17); Calcium 8.4 mg/dL (8.4-10.2); Carbon Dioxide 32 mmol/L (22-30); Chloride 99 mmol/L (98-107); Estimated CRCL calculation 30 ml/min; Estimated Glomerular Filt Rate 39; Glucose 101 mg/dL (65-110); Sodium 134 mmol/L (137-145)
[2023-10-14] MEDS: HYDROmorphone HCL INJ (*CRX) 1 MG/ML SYR 0.5 MG IV PUSH (09:39)
[2023-10-14] MEDS: APIXABAN 2.5 MG TABLET PO (09:43)
[2023-10-14] MEDS: METOPROLOL SUCCINATE EXT REL 100 MG TABCR PO (09:43)
[2023-10-14] MEDS: LOSARTAN POTASSIUM 50 MG TABLET PO (09:43)
[2023-10-14] MEDS: dilTIAZem HCL CD 120 MG CAP.24HR PO (09:43)
[2023-10-14] MEDS: FUROSEMIDE 40 MG TABLET PO (09:43)
[2023-10-14] MEDS: ATORVASTATIN 40 MG TABLET PO (09:43)
[2023-10-14] MEDS: DOCUSATE SODIUM 100 MG CAPSULE PO (09:43)
[2023-10-14] MEDS: EMPAGLIFLOZIN 10 MG TABLET PO (09:43)
[2023-10-14] MEDS: TROSPIUM CHLORIDE 20 MG 1 EACH PO (09:45)
[2023-10-14] MEDS: ACETAMINOPHEN 325 MG TABLET 650 MG PO (09:52)
[2023-10-14] MEDS: FERROUS SULFATE 325 MG TABLET DR PO (09:52)
--- NOTE | 2023-10-14 16:25 | P.DS_ITS ---
DS: Admitting Diagnosis Discharge Date 10/14/2023 Admitting Diagnosis Compression fracture L1 DS: Discharge Diagnosis Discharge Diagnosis (1) Fall: Code(s): W19.XXXA - Unspecified fall, initial encounter Status: Acute Assessment and Plan: 10/11/23 * Patient sustained a fall yesterday when transitioning from the walker to a chair she fell backwards falling on her buttocks. * Right shoulder x-ray showed chronic right rotator cuff arthroplasty with severe glenohumeral and AC osteoarthritis. 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 * Lumbar spine x-ray showed bulge disc and L3-L4, L4-L5, L5 to the S1, mild lumbar spondylosis with acute L1 compression fracture with minimal central vertebral body height loss * PT and OT ordered * Case management following for outpatient rehab needs * Continue fall precautions * Continue pain control * 10/13 discharge to N&R with TLSO brace (2) Compression fracture of L1 lumbar vertebra: Code(s): S32.010A - Wedge compression fracture of first lumbar vertebra, initial encounter for closed fracture Status: Acute Assessment and Plan: 10/11/23: * TLSO brace ordered * PT and OT ordered * Continue pain control 10/13/23: * No change to current treatment (3) Acute pain of right knee: Code(s): M25.561 - Pain in right knee Status: Acute Assessment and Plan: 10/11/23: * Continue pain control with [place] 10/13/23: * No change to current plan (4) Inability to ambulate due to knee: Code(s): R26.2 - Difficulty in walking, not elsewhere classified Status: Acute Assessment and Plan: 10/11/23: * PT and OT ordered * Continue pain control * Case Management following for outpatient rehab needs 10/13/23: * No change to current treatment plan (5) Atrial fibrillation: Code(s): I48.91 - Unspecified atrial fibrillation Status: Chronic Assessment and Plan: 10/11/23: * Continue Eliquis and metoprolol 10/13/23: * No change to current treatment plan (6) Hypertension: Code(s): I10 - Essential (primary) hypertension Status: Chronic Assessment and Plan: 10/11/23: * Continue losartan 10/13/23: * No change to current treatment plan (7) Hypothyroidism: Code(s): E03.9 - Hypothyroidism, unspecified Status: Chronic Assessment and Plan: 10/11/23: * Continue Synthroid 10/13/23: * No change to current treatment plan DS: Summary Hospital Course Hospital Course: Admitted after fall with severe back pain. Imaging revealed L1 compression fracture and other degenerative changes. No sign of tumor or infection. Labs showed no change from baseline chronic anemia chronic mild kidney disease with hemoglobin 9.8 and creatinine 1.3 respectively. Patient's pain improved with [place] and TLSO brace. She was accepted for admission to [facility] for rehabilitation. She was tolerating her diet and admitted activity. She was discharged in stable condition. Time Spent with Patient Time attestation: Total time spent providing and/or coordinating discharge services: Exam Narrative: General: In no acute distress, well nourished Head: atraumatic, no encephalopathy Eyes: EOMI, PERRLA, sclera clear ENT: moist mucous membran
--- NOTE | 2023-10-14 16:25 | PM.DS ---
DS: Admitting Diagnosis Discharge Date 10/14/2023 Admitting Diagnosis Compression fracture L1 DS: Discharge Diagnosis Discharge Diagnosis (1) Fall: Code(s): W19.XXXA - Unspecified fall, initial encounter Status: Acute Assessment and Plan: 10/11/23 Patient sustained a fall yesterday when transitioning from the walker to a chair she fell backwards falling on her buttocks. Right shoulder x-ray showed chronic right rotator cuff arthroplasty with severe glenohumeral and AC osteoarthritis. 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 Lumbar spine x-ray showed bulge disc and L3-L4, L4-L5, L5 to the S1, mild lumbar spondylosis with acute L1 compression fracture with minimal central vertebral body height loss PT and OT ordered Case management following for outpatient rehab needs Continue fall precautions Continue pain control 10/13 discharge to N&R with TLSO brace (2) Compression fracture of L1 lumbar vertebra: Code(s): S32.010A - Wedge compression fracture of first lumbar vertebra, initial encounter for closed fracture Status: Acute Assessment and Plan: 10/11/23: TLSO brace ordered PT and OT ordered Continue pain control 10/13/23: No change to current treatment (3) Acute pain of right knee: Code(s): M25.561 - Pain in right knee Status: Acute Assessment and Plan: 10/11/23: Continue pain control with [place] 10/13/23: No change to current plan (4) Inability to ambulate due to knee: Code(s): R26.2 - Difficulty in walking, not elsewhere classified Status: Acute Assessment and Plan: 10/11/23: PT and OT ordered Continue pain control Case Management following for outpatient rehab needs 10/13/23: No change to current treatment plan (5) Atrial fibrillation: Code(s): I48.91 - Unspecified atrial fibrillation Status: Chronic Assessment and Plan: 10/11/23: Continue Eliquis and metoprolol 10/13/23: No change to current treatment plan (6) Hypertension: Code(s): I10 - Essential (primary) hypertension Status: Chronic Assessment and Plan: 10/11/23: Continue losartan 10/13/23: No change to current treatment plan (7) Hypothyroidism: Code(s): E03.9 - Hypothyroidism, unspecified Status: Chronic Assessment and Plan: 10/11/23: Continue Synthroid 10/13/23: No change to current treatment plan DS: Summary Hospital Course Hospital Course: Admitted after fall with severe back pain. Imaging revealed L1 compression fracture and other degenerative changes. No sign of tumor or infection. Labs showed no change from baseline chronic anemia chronic mild kidney disease with hemoglobin 9.8 and creatinine 1.3 respectively. Patient's pain improved with [place] and TLSO brace. She was accepted for admission to [facility] for rehabilitation. She was tolerating her diet and admitted activity. She was discharged in stable condition. Time Spent with Patient Time attestation: Total time spent providing and/or coordinating discharge services: Exam Narrative: General: In no acute distress, well nourished Head: atraumatic, no encephalopathy Eyes: EOMI, PERRLA, sclera clear ENT: moist mucous membranes, nasal passages clear Neck: supple, no JVD, no adenopathy, trachea midline Cardiac: Normal S1 and S2. No murmur, gallops or friction rubs, peripheral pulses intact. Respiratory: Lungs clear to auscultation, no adventitious lung sounds, currently on room air Gastrointestinal: soft, non-distended, non-tender, normoactive bowel sounds. Extremities: moves all extremities, moderate bilateral lower extremity edema Skin: clean, dry, intact. No wounds or lesions. Neuro: Alert and oriented x3, cranial ne
--- NOTE | 2023-10-15 11:05 | PC.NURSE ---
Patient's son called with questions regarding discharging medications. All questions answered.
== END 2023-10-14 20:10 ==
LOC: ANHED 23:37 → ANH3MEDSUR 10-11 09:38
PROVIDERS: Nurse Practitioner Acute Care; Admitting Provider Internal Medicine; Emergency Provider Physician Assistant; PCP Internal Medicine; Visit Provider Internal Medicine
DX: S32.010A Wedge compression fracture of first lumbar vertebra, initial encounter for closed fracture (principal); M25.561 Pain in right knee; R26.2 Difficulty in walking, not elsewhere classified; W18.39XA Other fall on same level, initial encounter; I13.0 Hypertensive heart and chronic kidney disease with heart failure and stage 1 through stage 4 chronic kidney disease, or unspecified chronic kidney disease; I50.9 Heart failure, unspecified; N18.32 Chronic kidney disease, stage 3b; E03.9 Hypothyroidism, unspecified; I48.91 Unspecified atrial fibrillation; M47.816 Spondylosis without myelopathy or radiculopathy, lumbar region; E78.5 Hyperlipidemia, unspecified; D64.9 Anemia, unspecified; Z79.01 Long term (current) use of anticoagulants; Z79.84 Long term (current) use of oral hypoglycemic drugs
CPT/HCPCS: 36415; 70450; 71046; 72131; 73030; 80048; 80053; 81003; 85025; 93005; 96374; 96375; 96376; 97161; 97166; 97530; 99285; A9270; G0378; J1170; J2405

== ENCOUNTER 2024-05-15 15:22 | Inpatient (IN) | payer MEDICARE, MEDICAID, SELFPAY ==
[2024-05-15] VITALS (10 sets, daily range): BP systolic 91–127; BP diastolic 49–90; PULSE 50–60; RESP 15–22; TEMP 36.3–36.8; O2SAT 96–100; BMI 34.7
--- NOTE | ~2024-05-15 | CT_ITS ---
EXAMINATION: CT abdomen pelvis w con DATE: 05/15/2024 18:05 INDICATION: Abdominal pain. Dysuria. TECHNIQUE: Computed tomography (CT) of the abdomen and pelvis was performed with 100 mL Omnipaque 350 intravenous contrast. Automated exposure control and iterative reconstruction technique were employe d. The dose-length product was 1147.89 mGy-cm. COMPARISON: CT abdomen 04/29/2008 FINDINGS: The visualized portions of the lung bases demonstrate mild atelectasis. No pleural effusion . The heart size is normal. There are coronary artery calcifications. No pericardial effusion. There is a moderate-sized sliding hernia. There are cysts in the liver measuring up to 5 mm. The gallbladde r, spleen, pancreas, and adrenal glands are normal. There is cortical thinning of the kidneys. There is a 1.8 cm cyst in left kidney. There is urothelial enhancement in the renal pelvises, consistent wi th pyelitis. There is wall thickening of the bladder with urothelial hyperenhancement, consistent wit h cystitis. Stool distends the rectum. There is diverticulosis of the colon without evidence of diver ticulitis. The appendix is not visualized. There is calcified atherosclerosis of the aorta and many o f the other arteries. There are old healed fractures of right superior and inferior pubic rami. There is a chronic burst fracture of L1. There is mild lumbar spondylosis. IMPRESSION: 1. Cystitis and bilateral pyelitis. 2. Stool distends the rectum. 3. Moderate-sized sliding hiatal hernia. Reviewed, dictated and finalized at location A. [employer] MEMBER
[2024-05-15 16:19] LABS: Basophils Absolute Auto 0.1 K/mm3 (0.0-0.1); Basophils Percent Auto 0.7 % (0.2-1.2); Eosinophils Absolute Auto 0.7 K/mm3 (0-0.3); Eosinophils Percent Auto 7.6 % (0-4.4); Hematocrit 33.6 % (37.0-47.0); Hemoglobin 10.8 g/dL (12.0-15.0); Immature Granulocyte Absolute 0.02 K/mm3 (0.00-0.031); Immature Granulocyte Percent A 0.2 % (0-0.5); Lymphocytes Absolute Auto 1.55 K/mm3 (0.9-3.2); Lymphocytes Percent Auto 18.2 % (18.3-44.2); Mean Corpuscular HGB Conc 32.1 g/dl (32-36); Mean Corpuscular Hemoglobin 28.6 pg (26-34); Mean Corpuscular Volume 88.9 fl (80-100); Mean Platelet Volume 10.1 fl (7.4-10.4); Monocytes Absolute Auto 0.8 K/mm3 (0.1-0.6); Monocytes Percent Auto 9.9 % (2.6-8.5); Neutrophils Absolute Auto 5.4 K/mm3 (1.3-6.7); Neutrophils Percent Auto 63.4 % (45.5-73.1); Platelet Count Result 271 k/mm3 (150-375); Red Blood Count 3.78 M/mm3 (4.2-5.4); Red Cell Distribution Width 15.8 % (11.5-14.5); White Blood Count 8.5 K/mm3 (4.5-10.0)
--- NOTE | 2024-05-15 16:24 | ED.ABDPAIN ---
HPI - Abdominal Pain General Chief Complaint: Abdominal Pain Stated Complaint: abd pain, urinary sx Time Seen by Provider: 05/15/24 15:50 Source: patient Mode of arrival: EMS Limitations: no limitations History of Present Illness HPI narrative: This is an 88-year-old female that presents to the emergency department for dysuria. Ongoing over the last couple of days. Reports some abdominal discomfort. Sent in from her facility for evaluation. Denies fevers or vomiting. Related Data Home Medications ?Medication ?Instructions ?Recorded ?Confirmed ?Last Taken ?Type apixaban 2.5 mg tablet (Eliquis) 2.5 mg PO BID 01/08/22 05/15/24 05/15/24 History diltiazem HCl 120 mg tablet 120 mg PO DAILY 01/08/22 05/15/24 05/15/24 History levothyroxine 112 mcg tablet 112 mcg PO DAILY 01/08/22 05/15/24 05/15/24 History metoprolol succinate 100 mg 100 mg PO DAILY 01/08/22 05/15/24 05/15/24 History tablet,extended release 24 hr omeprazole 20 mg capsule,delayed 20 mg PO DAILY 01/08/22 05/15/24 05/15/24 History release atorvastatin 40 mg tablet 40 mg PO DAILY 08/02/22 05/15/24 05/15/24 History empagliflozin 10 mg tablet 10 mg PO DAILY 08/02/22 05/15/24 05/15/24 History (Jardiance) ferrous sulfate 325 mg (65 mg 325 mg PO DAILY 08/02/22 05/15/24 05/15/24 History iron) tablet furosemide 40 mg tablet 40 mg PO DAILY 08/02/22 05/15/24 05/15/24 History losartan 50 mg tablet 50 mg PO DAILY 08/02/22 05/15/24 05/15/24 History potassium chloride 20 mEq 20 meq PO EVERY OTHER DAY 08/02/22 05/15/24 05/14/24 History tablet,extended release hydrocodone 5 mg-acetaminophen 325 0.5 tablet PO Q8H 12/21/23 05/15/24 05/15/24 History mg tablet acetaminophen 500 mg tablet 1,000 mg PO Q6H PRN pain 05/15/24 05/15/24 Unknown History cranberry conc-vit 1 ea PO BID 05/15/24 05/15/2424 History N-mvlfltu-DUF-bromelain 3,875 mg/30 mL oral liquid (UTI-Stat) loperamide 2 mg tablet 2 mg PO Q6H PRN loose stool 05/15/24 05/15/24 Unknown History (Anti-Diarrheal (loperamide)) oxybutynin chloride 5 mg tablet 5 mg PO DAILY 05/15/24 05/15/24 05/15/24 History Allergies Allergy/AdvReac Type Severity Reaction Status Date / Time No Known Allergies Allergy Mild Verified 05/06/24 08:03 Review of Systems Review of Systems: CONSTITUTIONAL: Denies fever GASTROINTESTINAL: Reports abdominal pain. Denies nausea, vomiting, or diarrhea. GENITOURINARY: Reports dysuria All systems reviewed & are unremarkable except as noted in HPI and below PMFSH Past Medical History Medical History (Updated 05/15/24 @ 21:15 by Carmella Christian PA-C) Chronic kidney disease, stage 3 Compression fracture of L1 lumbar vertebra Gastroesophageal reflux disease Chronic anticoagulation Atrial fibrillation Hypertension Hypothyroidism Surgical History Surgical History (Updated 05/15/24 @ 21:13 by Carmella Christian PA-C) History of bilateral cataract extraction History of right knee joint replacement History of open reduction and internal fixation (ORIF) procedure Left arm History of hysterectomy History of appendectomy Family History Family History Son Throat cancer Lung cancer Social History Social History (Updated 05/15/24 @ 21:13 by Carmella Christian PA-C) Social History: Surrogate medical decision maker: Neri Galvez, son. Code status: Full code. Smoking status: Never smoker Second hand tobacco smoke exposure: No Alcohol intake: never Substance use: never Substance use type: does not use Do You Feel Safe in your Home?: Yes Lack of Transportation: No Lack of Food: Never True Current Housing: I Have Housing Concerned About Future Housing: No Difficulty Paying Gas/Electric Bills: No Difficulty Paying for Meds: No Currently Unemployed: No Education: Decline to Answer Difficulty w/ Childcare or Family Care: No Spiritual care concerns: No Exam Narrative: GENERAL: Elderly, well-nourished, and in no acute distress. HEAD: Normocephalic, atraumatic. EYES: EOMI. ENT: Nares clear, no rhinorrhea or epistaxis. Mucous membranes moist. Oropharynx without tonsillar hypertrophy exudate or other lesions. CHEST: Clear to auscultation. No respiratory distress. No wheezes rales or rhonchi HEART: Bradycardic, regular rhythm. No murmur heard. Normal peripheral pulses. ABDOMEN: Soft, nontender, nondistended, normal active bowel sounds. EXTREMITIES: Normal range of motion. No edema. SKIN: Warm, dry, no rash. NEURO: No focal deficits. Alert and oriented x3. PSYCH: Normal mood and affect Course Course Emergency Course: Patient was updated on her workup and recommendation for admission Consultations Consultation #1: Spoke with hospitalist about patient and workup who accepts admission Date: 05/15/24 Vital Signs Vital signs: Vital Signs Temperature 97.8 F 05/15/24 16:36 Pulse Rate 58 L 05/15/24 16:36 Respiratory Rate 18 05/15/24 16:36 Blood Pressure 91/49 L 05/15/24 16:36 Pulse Oximetry 99 05/15/24 16:36 Temperature 98.0 F 05/16/24 08:00 Pulse Rate 54 L 05/16/24 08:00 Respiratory Rate 16 05/16/24 08:00 Blood Pressure 137/53 L 05/16/24 08:00 Pulse Oximetry 99 05/16/24 08:00 Oxygen Delivery Room Air 05/15/24 21:15 MDM - Abdominal Pain MDM Narrative Medical decision making narrative: Patient presents to the emergency department for dysuria ongoing over the last couple of days. She is afebrile and nontoxic appearing. Blood pressure soft upon arrival, this did respond to a small fluid bolus. Cbc without leukocytosis. Kidney function is likely around baseline. Urine with evidence of infection. Blood cultures will be obtained patient started on IV antibiotics. CT abdomen pelvis shows cystitis and bilateral pyelitis. Constipation. Moderate size hiatal hernia. Patient was updated on her workup and recommendation for admission. Spoke with hospitalist about patient and workup who accepts admission Differential Diagnosis Differential diagnosis: Likely calculus of kidney, constipation, diverticulitis and other (Acute UTI, pyelonephritis) Lab Data Attestation: I reviewed the patient's lab results. 05/16/24 06:33 05/16/24 06:33 Labs: Lab Results 05/15/24 05/15/24 Range/Units 16:11 17:24 WBC 8.5 (4.5-10.0) K/mm3 RBC 3.78 L (4.2-5.4) M/mm3 Hgb 10.8 L (12.0-15.0) g/dL Hct 33.6 L (37.0-47.0) % MCV 88.9 (80-100) fl MCH 28.6 (26-34) pg MCHC 32.1 (32-36) g/dl RDW 15.8 H (11.5-14.5) % Plt Count 271 (150-375) k/mm3 MPV 10.1 (7.4-10.4) fl Immature Gran % (Auto) 0.2 (0-0.5) % Neut % (Auto) 63.4 (45.5-73.1) % Lymph % (Auto) 18.2 L (18.3-44.2) % [place] % (Auto) 9.9 H (2.6-8.5) % Eos % (Auto) 7.6 H (0-4.4) % Baso % (Auto) 0.7 (0.2-1.2) % Lymph # (Auto) 1.55 (0.9-3.2) K/mm3 [place] # (Auto) 0.8 H (0.1-0.6) K/mm3 Eos # (Auto) 0.7 H (0-0.3) K/mm3 Baso # (Auto) 0.1 (0.0-0.1) K/mm3 Abs Immat Gran (auto) 0.02 (0.00-0.031) K/mm3 Absolute Neuts (auto) 5.4 (1.3-6.7) K/mm3 Absolute Nucleated RBC 0.000 (0.0-0.012) K/mm3 Nucleated RBC % 0.0 (0.0-0.2) % Sodium 137 (137-145) mmol/L Potassium 4.6 (3.4-5.0) mmol/L Chloride 106 (98-107) mmol/L Carbon Dioxide 26 (22-30) mmol/L Anion Gap 5 (4-12) mmol/L BUN 43 H D (7-17) mg/dL Creatinine 1.50 H (0.7-1.0) mg/dL Estim Creat Clear Calc Not Reportable Estimated GFR 33 L (59 - ) Glucose 108 (65-110) mg/dL Calcium 9.3 (8.4-10.2) mg/dL Total Bilirubin 0.7 (0.2-1.3) mg/dL AST 22 (14-36) U/L ALT 12 (6-35) U/L Alkaline Phosphatase 108 (38-126) U/L Total Protein 8.0 (6.3-8.2) g/dL Albumin 3.9 (3.5-5.1) g/dL Lipase 34 (23-300) U/L Urine Color Yellow (Yellow) Urine Appearance Turbid H (Clear) Urine pH 7.5 (5.0-9.0) Ur Specific [place] 1.009 (1.001-1.035) Urine Protein 1+ H (Negative) mg/dL Urine Glucose (UA) Trace H (Negative) mg/dL Urine Ketones Negative (Negative) mg/dL Ur Blood (Man) 2+ H (Negative) Urine Nitrate Negative (Negative) Urine Bilirubin Negative (Negative) Urine Urobilinogen 0.2 (<2.0) mg/dL Add Ur Microanalysis Reviewed Leukocyte Esterase Rfl 3+ H (Negative) JANE/UL Urine RBC 0-2 (0-2) /hpf Urine WBC >100 H (0-3) /hpf Ur Squamous Epith Cells None seen (Few) /hpf Urine Bacteria 4+ H /hpf Urine Casts 11-20 Imaging Data Radiologist's impression: ITS Impressions Abdomen/Pelvis CT 05/15/24 18:07 IMPRESSION: 1. Cystitis and bilateral pyelitis. 2. Stool distends the rectum. 3. Moderate-sized sliding hiatal hernia. Critical Care Time Critical Care Time Critical Care Time: No Discharge Plan Discharge Clinical Impression: Acute UTI Patient Disposition: Still a Patient Condition: Improved
[2024-05-15 16:28] LABS: Alanine Aminotransferase 12 U/L (6-35); Albumin Level 3.9 g/dL (3.5-5.1); Alkaline Phosphatase 108 U/L (38-126); Anion Gap 5 mmol/L (4-12); Aspartate Amino Transferase 22 U/L (14-36); Bilirubin,Total 0.7 mg/dL (0.2-1.3); Blood Urea Nitrogen 43 mg/dL (7-17); Calcium 9.3 mg/dL (8.4-10.2); Carbon Dioxide 26 mmol/L (22-30); Chloride 106 mmol/L (98-107); Estimated Glomerular Filt Rate 33; Glucose 108 mg/dL (65-110); Lipase 34 U/L (23-300); Potassium 4.6 mmol/L (3.4-5.0); Sodium 137 mmol/L (137-145)
[2024-05-15] MEDS: SODIUM CHLORIDE 0.9% IV 500 ML 999 ML IV CONT (17:04)
[2024-05-15 17:57] LABS: Add Urine Microscopic? YES; Appearance Urine Turbid (Clear); Bacteria Urine 4+ /hpf; Bilirubin Urine Negative (Negative); Blood Urine 2+ (Negative); Color Urine Yellow (Yellow); Glucose Urine UA Trace mg/dL (Negative); Ketones Urine Negative (Negative); Leukocyte Esterase Ur 3+ LEU/UL (Negative); Need Manual Microscopic Reviewed; Nitrate Urine Negative (Negative); Protein Urine 1+ mg/dL (Negative); RBC Urine 0-2 /hpf (0-2); Specific Grav Ur 1.009 (1.001-1.035); Squamous Epithelial Cell Urine None Seen /hpf (Few); Urobilinogen Urine 0.2 mg/dL (<2.0); WBC Urine >100 /hpf (0-3); pH Urine 7.5 (5.0-9.0)
--- NOTE | 2024-05-15 19:05 | PM.IMHP ---
H&P: HPI History of Present Illness Date/Time: 05/15/24 20:05 Chief Complaint: Abdominal pain and burning with urination. Narrative: This is an 88-year-old female with paroxysmal atrial fibrillation on chronic anticoagulation, hypertension, heart failure with preserved ejection fraction, chronic kidney disease stage 3, hypothyroidism, iron deficiency anemia, and gastroesophageal reflux disease who presented to the emergency department via EMS from her nursing facility with complaints of abdominal pain and burning with urination. She gives a 2 day history of dysuria and suprapubic abdominal discomfort and today she was sent in today for evaluation. According to the patient she has had issues with recurrent UTI over the last several months. She states that she is not incontinent however she is immobile and cannot get up by herself to go to the bathroom. Staff at her facility have instructed her to go to the bathroom in her briefs and alert them after she is done however she admits that she frequently sits in briefs soaked with urine for upwards of hours before she has changed. She reports dysuria for several days and intermittent suprapubic discomfort. She denies fever, chills, sweats, syncope, near syncope, nausea, vomiting, diarrhea, hematuria, and concerns for constipation. In the ED: Vitals on arrival include a blood pressure of 91/49, pulse 58, respiratory rate 18, SpO2 99% room air, and temperature 97.8?. Labs were significant for WBC count of 8.5, hemoglobin 10.8, BUN 43, creatinine 1.50. Urinalysis was positive for 1+ protein, trace glucose, 2+ blood, 3+ leukocyte esterase, greater than 100 WBC, and 4+ bacteria. CT of the abdomen and pelvis showed evidence of cystitis and bilateral pyelitis with a moderate-sized sliding hiatal hernia and stool distending the rectum. She received ceftriaxone 1 g and sodium chloride 500 mL and she is being admitted in this setting for further treatment. Review of Systems Review of Systems: 12 systems were reviewed and are negative except for as per HPI. [facility] Past Medical History Medical History (Updated 05/15/24 @ 21:15 by Carmella Christian PA-C) Chronic kidney disease, stage 3 Compression fracture of L1 lumbar vertebra Gastroesophageal reflux disease Chronic anticoagulation Atrial fibrillation Hypertension Hypothyroidism Surgical History Surgical History (Updated 05/15/24 @ 21:13 by Carmella Christian PA-C) History of bilateral cataract extraction History of right knee joint replacement History of open reduction and internal fixation (ORIF) procedure Left arm History of hysterectomy History of appendectomy Family History Family History Son Throat cancer Lung cancer Social History Social History (Updated 05/15/24 @ 21:13 by Carmella Christian PA-C) Social History: Surrogate medical decision maker: Neri Galvez, son. Code status: Full code. Smoking status: Never smoker Second hand tobacco smoke exposure: No Alcohol intake: never Substance use: never Substance use type: does not use Do You Feel Safe in your Home?: Yes Lack of Transportation: No Lack of Food: Never True Current Housing: I Have Housing Concerned About Future Housing: No Difficulty Paying Gas/Electric Bills: No Difficulty Paying for Meds: No Currently Unemployed: No Education: High School Diploma/GED Difficulty w/ Childcare or Family Care: No Spiritual care concerns: No Meds Home Medications and Allergies Home Medications ?Medication ?Instructions ?Recorded ?Confirmed ?Type apixaban 2.5 mg tablet (Eliquis) 2.5 mg PO BID 01/08/22 10/11/23 History diltiazem HCl 120 mg tablet 120 mg PO DAILY 01/08/22 10/11/23 History levothyroxine 112 mcg tablet 112 mcg PO DAILY 01/08/22 10/11/23 History metoprolol succinate 100 mg 100 mg PO DAILY 01/08/22 10/11/23 History tablet,extended release 24 hr omeprazole 20 mg capsule,delayed 20 mg PO DAILY 01/08/22 10/11/23 History release trospium 20 mg tablet 20 mg PO DAILY 01/08/22 10/11/23 History atorvastatin 40 mg tablet 40 mg PO DAILY 08/02/22 10/11/23 History empagliflozin 10 mg tablet 10 mg PO DAILY 08/02/22 10/11/23 History (Jardiance) ferrous sulfate 325 mg (65 mg 325 mg PO DAILY 08/02/22 10/11/23 History iron) tablet furosemide 40 mg tablet 40 mg PO DAILY 08/02/22 10/11/23 History losartan 50 mg tablet 50 mg PO DAILY 08/02/22 10/11/23 History potassium chloride 20 mEq 20 meq PO EVERY OTHER DAY 08/02/22 10/11/23 History tablet,extended release acetaminophen 500 mg tablet 500 mg PO Q6H PRN pain #30 tabs 04/04/23 10/11/23 Rx hydrocodone 5 mg-acetaminophen 325 1 tablet PO Q8H PRN 12/21/23 History mg tablet Allergies Allergy/AdvReac Type Severity Reaction Status Date / Time No Known Allergies Allergy Mild Verified 05/06/24 08:03 Vital Signs Vital Signs - 24 hr 05/15/24 16:36 05/15/24 16:41 05/15/24 16:42 Temperature 97.8 F 97.8 F 97.8 F Pulse Rate 58 L 50 L 50 L Respiratory Rate 18 16 18 Blood Pressure 91/49 L 100/55 L 103/54 L Pulse Oximetry 99 99 98 Oxygen Delivery Room Air 05/15/24 17:26 05/15/24 17:39 Temperature 97.7 F 97.9 F Pulse Rate 53 L 58 L Respiratory Rate 22 H 15 Blood Pressure 106/64 123/80 Pulse Oximetry 100 100 Oxygen Delivery Exam Narrative: General: Mildly ill-appearing elderly female in the semi-Chapman position in bed in no acute distress. Weight: 80.8 kg. BMI: 34.8. HEENT: PERRL, EOMI. Sclera anicteric. Oral mucosa is tacky. Neck: Supple. Respiratory: Lungs are clear to auscultation bilaterally. Cardiovascular: Regular rate and rhythm with S1-S2. Gastrointestinal: Abdomen is soft and nondistended with positive bowel sounds. She is somewhat tender to palpation over the suprapubic region. No CVA tenderness. No guarding or rebound tenderness. Skin: Warm and dry. No rash or lesions on limited exam. Extremities: No cyanosis or clubbing. Trace pretibial edema. Radial and pedal pulses intact. Neurological: Alert. Cranial nerves 2-12 are grossly intact. Generalized weakness without gross focal findings. Psychiatric: Pleasant and cooperative with appropriate mood and affect. H&P: Results Labs Labs: Short CBC 05/15/24 Range/Units 16:11 WBC 8.5 (4.5-10.0) K/mm3 Hgb 10.8 L (12.0-15.0) g/dL Hct 33.6 L (37.0-47.0) % Plt Count 271 (150-375) k/mm3 [facility] 05/15/24 16:11 Sodium 137 Potassium 4.6 Chloride 106 Carbon Dioxide 26 BUN 43 H D Creatinine 1.50 H Glucose 108 Calcium 9.3 Liver Function 05/15/24 Range/Units 16:11 Total Bilirubin 0.7 (0.2-1.3) mg/dL AST 22 (14-36) U/L ALT 12 (6-35) U/L Alkaline Phosphatase 108 (38-126) U/L Albumin 3.9 (3.5-5.1) g/dL Urine 05/15/24 Range/Units 17:24 Urine Color Yellow (Yellow) Urine Appearance Turbid H (Clear) Urine pH 7.5 (5.0-9.0) Ur Specific [place] 1.009 (1.001-1.035) Urine Protein 1+ H (Negative) mg/dL Urine Glucose (UA) Trace H (Negative) mg/dL Impressions Abdomen/Pelvis CT 05/15/24 18:07 IMPRESSION: 1. Cystitis and bilateral pyelitis. 2. Stool distends the rectum. 3. Moderate-sized sliding hiatal hernia. Assessment and Plan Assessment and plan (1) Urinary tract infection: Code(s): N39.0 - Urinary tract infection, site not specified Status: Acute (2) Constipation: Code(s): K59.00 - Constipation, unspecified Status: Acute (3) Hypotension: Code(s): I95.9 - Hypotension, unspecified Status: Acute (4) Chronic kidney disease, stage 3: Code(s): N18.30 - Chronic kidney disease, stage 3 unspecified Status: Acute (5) Chronic anticoagulation: Code(s): Z79.01 - MCFP (current) use of anticoagulants Status: Acute (6) Atrial fibrillation: Code(s): I48.91 - Unspecified atrial fibrillation Status: Chronic (7) Hypertension: Code(s): I10 - Essential (primary) hypertension Status: Chronic (8) Hypothyroidism: Code(s): E03.9 - Hypothyroidism, unspecified Status: Chronic Plan The patient presented to the emergency department for evaluation of suprapubic discomfort and dysuria as detailed in HPI. Urinalysis consistent with urinary tract infection and there is evidence of cystitis and bilateral pyelitis on CT scan. No anomalies or obstructions noted and I suspect her recurrent urinary tract infections may very well be stemming from the fact that she frequently sits in urine soaked briefs. Continue ceftriaxone, pending urine culture. Start bowel regimen as she looks a bit constipated on imaging. Initial blood pressure was in the 90 systolic but improved with an IV fluid bolus. She looks a bit dry on exam and will be hydrated overnight. Renal function is stable on review of previous labs. She has chronic anemia which is also stable. She currently sounds to be in a normal sinus rhythm. Continue apixaban for stroke prophylaxis. Her home medications will be reviewed and resumed as appropriate. Findings and treatment plan were discussed with the patient and her son. Questions were solicited and answered to satisfaction. The patient's medical management will be taken over by the hospitalist team in a.m. Quality VTE Prophylaxis VTE prophylaxis: pharmacologic ordered (on apixaban) The patient has been admitted under observation status. Hospitalist [facility] Advance Care Plan I have confirmed that the patient's Advanced Care Plan is present, code status is documented, or surrogate decision maker is listed in patient medical record.: Yes Medication Reconciliation The patient is not eligible for med reconciliation; the patient is in a emergent medical situation where delaying treatment would jeopardize the patients health.: Yes
--- NOTE | 2024-05-15 19:38 | PC.NURSE ---
this RN called the hospitalist due to not being able to get blood cultures after 2 nurses and a tech and calling [facility] with no help have tried. hospitalist said to go ahead and hand the antibiotic
--- NOTE | 2024-05-15 19:55 | PC.NURSE ---
Blood cultures were not collected after [address] Adan ask to start antibiotics.
[2024-05-15 21:17] LABS: Glucose Point of Care 111 mg/dl (65-105)
--- NOTE | 2024-05-15 21:18 | ADMGEN ---
This patient, Janet Galvez, was admitted to Medical Room 344-01. Patient/family oriented to hospital policies and general routines including ID bracelet, bed and alarms, visiting hours, pain management, procedures, bathroom and other care routines, personal items, smoking policy, room service/diet, and visiting hours. Information on how to activate the Rapid Response Team has been discussed. Patient/Family are encouraged to report perceived risks to care and to ask questions if they do not understand what they are told or what they should do.
[2024-05-15] MEDS: BISACODYL 10 MG SUPPOSITORY RECTAL (22:09)
[2024-05-15] MEDS: SODIUM CHLORIDE 0.9% IV 1,000 ML 100 ML IV CONT (22:09)
[2024-05-16] VITALS: BP 136/81; PULSE 54; RESP 18; TEMP 36.6; O2SAT 98
[2024-05-16 05:38] VITALS: BP 141/76; PULSE 55; RESP 16; TEMP 36.4; O2SAT 97
[2024-05-16 07:23] LABS: Hematocrit 34.7 % (37.0-47.0); Hemoglobin 10.5 g/dL (12.0-15.0); Mean Corpuscular HGB Conc 30.3 g/dl (32-36); Mean Corpuscular Hemoglobin 27.7 pg (26-34); Mean Corpuscular Volume 91.6 fl (80-100); Mean Platelet Volume 10.9 fl (7.4-10.4); Platelet Count Result 236 k/mm3 (150-375); Red Blood Count 3.79 M/mm3 (4.2-5.4); Red Cell Distribution Width 15.8 % (11.5-14.5); White Blood Count 7.8 K/mm3 (4.5-10.0)
[2024-05-16 07:35] LABS: Anion Gap 8 mmol/L (4-12); Blood Urea Nitrogen 34 mg/dL (7-17); Calcium 8.9 mg/dL (8.4-10.2); Carbon Dioxide 20 mmol/L (22-30); Chloride 111 mmol/L (98-107); Estimated CRCL calculation 25 ml/min; Estimated Glomerular Filt Rate 39; Glucose 91 mg/dL (65-110); Magnesium 2.4 mg/dL (1.6-2.3); Potassium 4.1 mmol/L (3.4-5.0); Sodium 139 mmol/L (137-145)
[2024-05-16 08:00] VITALS: BP 137/53; PULSE 54; RESP 16; TEMP 36.7; O2SAT 99
[2024-05-16] MEDS: polyethylene glycoL 3350 17 GM POWD.PACK PO (08:32)
[2024-05-16 09:13] LABS: Glucose Point of Care 92 mg/dl (65-105)
--- NOTE | 2024-05-16 11:21 | P.PNIM_ITS ---
Progress Note: A&P Assessment and Plan (1) Urinary tract infection: Code(s): N39.0 - Urinary tract infection, site not specified Status: Acute Assessment and Plan: * Continue ABx therapy. * Await culture results of urine and blood * Pt does not meet sepsis criteria. (2) Constipation: Code(s): K59.00 - Constipation, unspecified Status: Acute Assessment and Plan: * Constipation as per imaging. * Continue Miralax (3) Hypotension: Code(s): I95.9 - Hypotension, unspecified Status: Acute Assessment and Plan: * Monitor and hold meds as appropriate. (4) Chronic kidney disease, stage 3: Code(s): N18.30 - Chronic kidney disease, stage 3 unspecified Status: Acute Assessment and Plan: * Monitor and hold Lasix if needed for any worsening. (5) Chronic anticoagulation: Code(s): Z79.01 - longterm (current) use of anticoagulants Status: Chronic Assessment and Plan: * Continue Eliquis (6) Atrial fibrillation: Code(s): I48.91 - Unspecified atrial fibrillation Status: Chronic Assessment and Plan: * Continue Eliquis therapy * Continue rate control with Metoprolol Succinate. (7) Hypertension: Code(s): I10 - Essential (primary) hypertension Status: Chronic Assessment and Plan: * Continue home meds * Monitor and trend VS. (8) Hypothyroidism: Code(s): E03.9 - Hypothyroidism, unspecified Status: Chronic Assessment and Plan: * Continue Supplementation Time Spent With Patient Time with patient: 15 - 25 minutes Subjective Date/time seen: 05/16/24 11:21 Interval history: Pt without any complaints today other than just not feeling well in general. She Has a UTI and is receiving abx. Cultures pending. Review of Systems Review of Systems: All systems reviewed & are unremarkable except as noted in HPI and below Exam Narrative: General: Mildly ill-appearing elderly female in the semi-Chapman position in bed in no acute distress. HEENT: PERRL, EOMI. Sclera anicteric. MMM Neck: Supple. FROM Respiratory: Lungs are clear to auscultation bilaterally. Cardiovascular: Regular rate and rhythm with S1-S2. Gastrointestinal: Abdomen is soft and nondistended with positive bowel sounds. She is somewhat tender to palpation over the suprapubic region. No CVA tenderness. No guarding or rebound tenderness. Skin: Warm and dry. No rash or lesions on limited exam. Extremities: No cyanosis or clubbing. Trace pretibial edema. Radial and pedal pulses intact. Neurological: Alert. Cranial nerves 2-12 are grossly intact. Generalized weakness without gross focal findings. Psychiatric: Pleasant and cooperative with appropriate mood and affect. Objective Data Vital Signs Vital Signs: Vital Signs - 24 hr 05/15/24 16:36 05/15/24 16:41 05/15/24 16:42 Temperature 97.8 F 97.8 F 97.8 F Pulse Rate 58 L 50 L 50 L Respiratory Rate 18 16 18 Blood Pressure 91/49 L 100/55 L 103/54 L Pulse Oximetry 99 99 98 Oxygen Delivery Room Air 05/15/24 17:26 05/15/24 17:39 05/15/24 19:01 Temperature 97.7 F 97.9 F Pulse Rate 53 L 58 L 60 Respiratory Rate 22 H 15 16 Blood Pressure 106/64 123/80 127/59 L Pulse Oximetry 100 100 98 Oxygen Delivery 05/15/24 19:30 05/15/24 19:56 05/15/24 20:43 Temperature 98.3 F 98.1 F Pulse Rate 58 L 57 L 56 L Respiratory Rate 20 19 20 Blood Pressure 121/66 111/52 L 119/90 Pulse Oximetry 96 99 96 Oxygen Delivery 05/15/24 21:06 05/15/24 21:15 05/16/24 00:00 Temperature 97.3 F L 98 F Pulse Rate 56 L 54 L Respiratory Rate 16 18 Blood Pressure 110/59 L 136/81 Pulse Oximetry 98 98 Oxygen Delivery Room Air 05/16/24 05:38 05/16/24 08:00 05/16/24 08:30 Temperature 97.6 F 98.0 F Pulse Rate 55 L 54 L Respiratory Rate 16 16 Blood Pressure 141/76 H 137/53 L Pulse Oximetry 97 99 Oxygen Delivery Room Air Intake/Output Intake/Output: Intake & Output 05/13/24 05/14/24 05/15/24 05/16/24 23:59 23:59 23:59 23:59 Intake Total 550 1240 Output Total 120 400 Balance 430 840 Meds/Results Medications: Active Medications Generic Name Dose Route Start Last Admin Trade Name Freq PRN Reason Stop Dose Admin Acetaminophen 650 mg 05/15/24 21:17 Acetaminophen 325 Mg Tablet PO Q6H PRN Mild Pain (1-3) or Fever Ceftriaxone Sodium 1 gm in 50 mls @ 100 mls/hr 05/16/24 18:00 Rocephin 1 Gm/Ns 50 Ml IVPB Q24H [facility] Polyethylene Glycol 17 gm 05/16/24 09:00 05/16/24 08:32 Polyethylene Glycol 3350 17 Gm Powd.Pack PO 17 gm QAM [facility] Administration Radiology Results: ITS Impressions Abdomen/Pelvis CT 05/15/24 18:07 IMPRESSION: 1. Cystitis and bilateral pyelitis. 2. Stool distends the rectum. 3. Moderate-sized sliding hiatal hernia. Labs Labs: Laboratory Results - last 24 hr 05/15/24 05/15/24 05/15/24 16:11 17:24 21:10 WBC 8.5 RBC 3.78 L Hgb 10.8 L Hct 33.6 L MCV 88.9 MCH 28.6 MCHC 32.1 RDW 15.8 H Plt Count 271 MPV 10.1 Immature Gran % (Auto) 0.2 Neut % (Auto) 63.4 Lymph % (Auto) 18.2 L [place] % (Auto) 9.9 H Eos % (Auto) 7.6 H Baso % (Auto) 0.7 Lymph # (Auto) 1.55 [place] # (Auto) 0.8 H Eos # (Auto) 0.7 H Baso # (Auto) 0.1 Abs Immat Gran (auto) 0.02 Absolute Neuts (auto) 5.4 Absolute Nucleated RBC 0.000 Nucleated RBC % 0.0 Sodium 137 Potassium 4.6 Chloride 106 Carbon Dioxide 26 Anion Gap 5 BUN 43 H D Creatinine 1.50 H Estim Creat Clear Calc Not Reportable Estimated GFR 33 L Glucose 108 POC Capillary Glucose 111 H Lactic Acid Calcium 9.3 Magnesium Total Bilirubin 0.7 AST 22 ALT 12 Alkaline Phosphatase 108 Total Protein 8.0 Albumin 3.9 Lipase 34 TSH (Reflex) Urine Color Yellow Urine Appearance Turbid H Urine pH 7.5 Ur Specific [place] 1.009 Urine Protein 1+ H Urine Glucose (UA) Trace H Urine Ketones Negative Ur Blood (Man) 2+ H Urine Nitrate Negative Urine Bilirubin Negative Urine Urobilinogen 0.2 Add Ur Microanalysis Reviewed Leukocyte Esterase Rfl 3+ H Urine RBC 0-2 Urine WBC >100 H Ur Squamous Epith Cells None seen Urine Bacteria 4+ H Urine Casts 11-20 05/15/24 05/16/24 05/16/24 22:20 06:33 06:34 WBC 7.8 RBC 3.79 L Hgb 10.5 L Hct 34.7 L MCV 91.6 MCH 27.7 MCHC 30.3 L RDW 15.8 H Plt Count 236 MPV 10.9 H Immature Gran % (Auto) Neut % (Auto) Lymph % (Auto) [place] % (Auto) Eos % (Auto) Baso % (Auto) Lymph # (Auto) [place] # (Auto) Eos # (Auto) Baso # (Auto) Abs Immat Gran (auto) Absolute Neuts (auto) Absolute Nucleated RBC Nucleated RBC % Sodium 139 Potassium 4.1 Chloride 111 H Carbon Dioxide 20 L Anion Gap 8 BUN 34 H Creatinine 1.30 H Estim Creat Clear Calc 25 Estimated GFR 39 L Glucose 91 POC Capillary Glucose Lactic Acid 1.0 Calcium 8.9 Magnesium 2.4 H Total Bilirubin AST ALT Alkaline Phosphatase Total Protein Albumin Lipase TSH (Reflex) 2.080 Urine Color Urine Appearance Urine pH Ur Specific [place] Urine Protein Urine Glucose (UA) Urine Ketones Ur Blood (Man) Urine Nitrate Urine Bilirubin Urine Urobilinogen Add Ur Microanalysis Leukocyte Esterase Rfl Urine RBC Urine WBC Ur Squamous Epith Cells Urine Bacteria Urine Casts 05/16/24 09:00 WBC RBC Hgb Hct MCV MCH MCHC RDW Plt Count MPV Immature Gran % (Auto) Neut % (Auto) Lymph % (Auto) [place] % (Auto) Eos % (Auto) Baso % (Auto) Lymph # (Auto) [place] # (Auto) Eos # (Auto) Baso # (Auto) Abs Immat Gran (auto) Absolute Neuts (auto) Absolute Nucleated RBC Nucleated RBC % Sodium Potassium Chloride Carbon Dioxide Anion Gap BUN Creatinine Estim Creat Clear Calc Estimated GFR Glucose POC Capillary Glucose 92 Lactic Acid Calcium Magnesium Total Bilirubin AST ALT Alkaline Phosphatase Total Protein Albumin Lipase TSH (Reflex) Urine Color Urine Appearance Urine pH Ur Specific [place] Urine Protein Urine Glucose (UA) Urine Ketones Ur Blood (Man) Urine Nitrate Urine Bilirubin Urine Urobilinogen Add Ur Microanalysis Leukocyte Esterase Rfl Urine RBC Urine WBC Ur Squamous Epith Cells Urine Bacteria Urine Casts Quality VTE Prophylaxis VTE prophylaxis: pharmacologic ordered
[2024-05-16 11:56] LABS: Glucose Point of Care 97 mg/dl (65-105)
[2024-05-16 12:47] VITALS: PULSE 54
[2024-05-16] MEDS: FERROUS SULFATE 325 MG TABLET DR PO (12:48)
[2024-05-16] MEDS: ATORVASTATIN 40 MG TABLET PO (12:48)
[2024-05-16] MEDS: POTASSIUM CHLORIDE 20 MEQ ER TABLET PO (12:49)
[2024-05-16] MEDS: PANTOPRAZOLE 40 MG TABLET PO (12:49)
[2024-05-16] MEDS: LOSARTAN POTASSIUM 50 MG TABLET PO (12:49)
[2024-05-16] MEDS: dilTIAZem HCL 60 MG TABLET 120 MG PO (12:49)
[2024-05-16] MEDS: oxyBUTYnin CHLORIDE 5 MG TABLET PO (12:49)
[2024-05-16] MEDS: APIXABAN 2.5 MG TABLET PO ×2 (12:49→20:32)
[2024-05-16] MEDS: HYDROcodone/acetaminophen (*CRX) 5-325 MG TABLET 0.5 TAB PO ×2 (12:49→20:32)
[2024-05-16] MEDS: EMPAGLIFLOZIN 10 MG TABLET PO (12:49)
[2024-05-16 14:00] VITALS: BP 119/50; PULSE 61; RESP 18; TEMP 36.7; O2SAT 99
[2024-05-16 17:10] LABS: Glucose Point of Care 98 mg/dl (65-105)
[2024-05-16 20:30] VITALS: BP 102/58; PULSE 52; RESP 18; TEMP 36.3; O2SAT 96
[2024-05-17] VITALS (8 sets, daily range): BP systolic 104–135; BP diastolic 42–83; PULSE 50–112; RESP 18; TEMP 36.2–36.7; O2SAT 96–100
[2024-05-17] MEDS: LEVOTHYROXINE SODIUM 112 MCG TABLET PO (04:44)
[2024-05-17] MEDS: HYDROcodone/acetaminophen (*CRX) 5-325 MG TABLET 0.5 TAB PO ×3 (04:45→21:11)
[2024-05-17 06:23] LABS: Basophils Absolute Auto 0.1 K/mm3 (0.0-0.1); Basophils Percent Auto 0.7 % (0.2-1.2); Eosinophils Absolute Auto 0.6 K/mm3 (0-0.3); Eosinophils Percent Auto 8.6 % (0-4.4); Hematocrit 30.4 % (37.0-47.0); Hemoglobin 9.6 g/dL (12.0-15.0); Immature Granulocyte Absolute 0.02 K/mm3 (0.00-0.031); Immature Granulocyte Percent A 0.3 % (0-0.5); Lymphocytes Absolute Auto 1.44 K/mm3 (0.9-3.2); Lymphocytes Percent Auto 19.3 % (18.3-44.2); Mean Corpuscular HGB Conc 31.6 g/dl (32-36); Mean Corpuscular Hemoglobin 28.3 pg (26-34); Mean Corpuscular Volume 89.7 fl (80-100); Mean Platelet Volume 10.6 fl (7.4-10.4); Monocytes Absolute Auto 0.7 K/mm3 (0.1-0.6); Monocytes Percent Auto 9.9 % (2.6-8.5); Neutrophils Absolute Auto 4.6 K/mm3 (1.3-6.7); Neutrophils Percent Auto 61.2 % (45.5-73.1); Platelet Count Result 225 k/mm3 (150-375); Red Blood Count 3.39 M/mm3 (4.2-5.4); Red Cell Distribution Width 15.9 % (11.5-14.5); White Blood Count 7.5 K/mm3 (4.5-10.0)
[2024-05-17 06:32] LABS: Alanine Aminotransferase 10 U/L (6-35); Albumin Level 3.3 g/dL (3.5-5.1); Alkaline Phosphatase 92 U/L (38-126); Anion Gap 4 mmol/L (4-12); Aspartate Amino Transferase 17 U/L (14-36); Bilirubin,Total 0.5 mg/dL (0.2-1.3); Blood Urea Nitrogen 32 mg/dL (7-17); Calcium 8.6 mg/dL (8.4-10.2); Carbon Dioxide 22 mmol/L (22-30); Chloride 110 mmol/L (98-107); Estimated CRCL calculation 24 ml/min; Estimated Glomerular Filt Rate 35; Glucose 108 mg/dL (65-110); Magnesium 2.2 mg/dL (1.6-2.3); Sodium 136 mmol/L (137-145)
--- NOTE | 2024-05-17 07:46 | PM.IMPN ---
Progress Note: A&P Assessment and Plan (1) Urinary tract infection: Code(s): N39.0 - Urinary tract infection, site not specified Status: Acute Assessment and Plan: 05/17/24: Patient states has frequent UTI in the past. Today is doing well, cx results remain pending for sensitivities this am. Symptoms improved. Day 3 ceftriaxone. - Proteus and e. coli on speciation, 91% and 94% respectively on sensitivity/antibiogram for ceftriaxone. - Consider outpatient therapy modification for T2DM, change Jardiance as may precipitate recurrent uti. 05/16/24: Continue ABx therapy. Await culture results of urine and blood Pt does not meet sepsis criteria. (2) Constipation: Code(s): K59.00 - Constipation, unspecified Status: Acute Assessment and Plan: 05/17/24: BM yesterday, abd. exam benign. Resolved. 05/16/24: Constipation as per imaging. Continue Miralax (3) Hypotension: Code(s): I95.9 - Hypotension, unspecified Status: Acute Assessment and Plan: 05/17/24: Resolved with stable bp. 05/16/24: Monitor and hold meds as appropriate. (4) Chronic kidney disease, stage 3: Code(s): N18.30 - Chronic kidney disease, stage 3 unspecified Status: Acute Assessment and Plan: 05/17/24: Stable labs. Trend/monitor. 05/16/24: Monitor and hold Lasix if needed for any worsening. 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 Further outpatient trending and monitoring with PCP to follow. 05/16/24: Continue Eliquis (6) Atrial fibrillation: Code(s): I48.91 - Unspecified atrial fibrillation Status: Chronic Assessment and Plan: 05/17/24: Currently SB with 1st degree block. Stable rate mid 50s generally for several days. Asymptomatic. 05/16/24: Continue Eliquis therapy Continue rate control with Metoprolol Succinate. (7) Hypertension: Code(s): I10 - Essential (primary) hypertension Status: Chronic Assessment and Plan: 12/27/24: Stable BP. 05/16/24: Continue home meds Monitor and trend VS. (8) Hypothyroidism: Code(s): E03.9 - Hypothyroidism, unspecified Status: Chronic Assessment and Plan: Continue Supplementation Plan Janet Galvez is an 88 year old female presenting with urinary tract infection (recurrent per her report) with stable vs and labwork. Urine sensitivities are pending. Time Spent With Patient Time with patient: 15 - 25 minutes Subjective Date/time seen: 05/17/24 07:46 Interval history: Janet states she is doing well today, some lower abd. discomfort but it is described as mild. Review of Systems Review of Systems: All systems reviewed & are unremarkable except as noted in HPI and below Exam Narrative: GENERAL APPEARANCE: Appears to be in no acute distress. HEAD: normocephalic atraumatic EYES: PERRL, EOMI. Vision grossly intact. ENT: Hearing grossly intact, no nasal discharge NECK: Neck supple, trachea midline. CARDIAC: Normal S1/S2. Rhythm is regular. No murmurs, rubs, or gallops. No cyanosis or pallor. Extremities are warm and well perfused. LUNGS: Clear to auscultation without rales, rhonchi, wheezing or diminished breath sounds. Respirations even and unlabored. ABDOMEN: BS positive x 4 quadrants. Soft, nondistended, nontender. No guarding or rebound. MSK: No joint tenderness/swelling, fair strength in all extremities. PERIPHERAL VASCULAR: Peripheral pulses palpable. Normal perfusion, cap refill <2 seconds. Trace pedal edema. NEURO: Follows commands. No focal deficits. PSYCH: Stable, no paranoia or delusional thinking. Objective Data Vital Signs Vital Signs: Vital Signs - 24 hr 05/16/24 08:00 05/16/24 08:30 05/16/24 12:47 Temperature 98.0 F Pulse Rate 54 L 54 L Respiratory Rate 16 Blood Pressure 137/53 L Pulse Oximetry 99 Oxygen Delivery Room Air 05/16/24 14:00 05/16/24 20:00 05/16/24 20:30 Temperature 98.1 F 97.4 F L Pulse Rate 61 52 L Respiratory Rate 18 18 Blood Pressure 119/50 L 102/58 L Pulse Oximetry 99 96 Oxygen Delivery Room Air 05/17/24 01:45 05/17/24 04:43 Temperature 97.7 F 97.1 F L Pulse Rate 52 L 52 L Respiratory Rate 18 18 Blood Pressure 111/80 135/42 L Pulse Oximetry 98 97 Oxygen Delivery Intake/Output Intake/Output: Intake & Output 05/14/24 05/15/24 05/16/24 05/17/24 23:59 23:59 23:59 23:59 Intake Total 550 2620 590 Output Total 120 780 450 Balance 430 1840 140 Meds/Results Medications: Active Medications Generic Name Dose Route Start Last Admin Trade Name Freq PRN Reason Stop Dose Admin Acetaminophen 1,000 mg 05/16/24 11:23 Acetaminophen 500 Mg Tablet PO Q6H PRN pain Hydrocodone Bitart/Acetaminophen 0.5 tab 05/16/24 11:25 05/17/24 04:45 Hydrocodone/Acetaminophen (*Crx) 5-325 Mg Tablet PO 0.5 tab Q8HR NAYELI Administration Apixaban 2.5 mg 05/16/24 11:45 05/16/24 20:32 Apixaban 2.5 Mg Tablet PO 2.5 mg Q12HR NAYELI Administration Atorvastatin Calcium 40 mg 05/16/24 11:45 05/16/24 12:48 Atorvastatin 40 Mg Tablet PO 40 mg DAILY NAYELI Administration Diltiazem HCl 120 mg 05/16/24 11:45 05/16/24 12:49 Diltiazem Hcl 60 Mg Tablet PO 120 mg DAILY NAYELI Administration Empagliflozin 10 mg 05/16/24 11:45 05/16/24 12:49 Empagliflozin 10 Mg Tablet PO 10 mg DAILY NAYELI Administration Ferrous Sulfate 325 mg 05/16/24 11:45 05/16/24 12:48 Ferrous Sulfate [address] PO 06/16/24 11:44 325 mg DAILY NAYELI Administration Furosemide 40 mg 05/16/24 11:45 05/16/24 12:47 Furosemide 40 Mg Tablet PO Not Given DAILY NAYELI Ceftriaxone Sodium 1 gm in 50 mls @ 100 mls/hr 05/16/24 18:00 05/16/24 18:30 Rocephin 1 Gm/Ns 50 Ml IVPB Infused Q24H NAYELI Infusion Levothyroxine Sodium 112 mcg 05/17/24 06:30 05/17/24 04:44 Levothyroxine Sodium 112 Mcg Tablet PO 112 mcg DAILY@0630 NAYELI Administration Loperamide HCl 2 mg 05/16/24 11:23 Loperamide Hcl 2 Mg Capsule PO Q6H PRN loose stool Losartan Potassium 50 mg 05/16/24 11:45 05/16/24 12:49 Losartan Potassium 50 Mg Tablet PO 50 mg DAILY NAYELI Administration Metoprolol Succinate 100 mg 05/16/24 11:45 05/16/24 12:47 Metoprolol Succinate Ext Rel 100 Mg Tabcr PO Not Given DAILY NAYELI Oxybutynin Chloride 5 mg 05/16/24 11:45 05/16/24 12:49 Oxybutynin Chloride 5 Mg Tablet PO 5 mg DAILY NAYELI Administration Pantoprazole Sodium 40 mg 05/16/24 11:45 05/16/24 12:49 Pantoprazole 40 Mg Tablet PO 06/16/24 11:44 40 mg DAILY NAYELI Administration Polyethylene Glycol 17 gm 05/16/24 09:00 05/16/24 08:32 Polyethylene Glycol 3350 17 Gm Powd.Pack PO 17 gm QAM NAYELI Administration Potassium Chloride 20 meq 05/16/24 11:50 05/16/24 12:49 Potassium Chloride 20 Meq Er Tablet PO 20 meq Q48HR NAYELI Administration Radiology Results: ITS Impressions Abdomen/Pelvis CT 05/15/24 18:07 IMPRESSION: 1. Cystitis and bilateral pyelitis. 2. Stool distends the rectum. 3. Moderate-sized sliding hiatal hernia. Labs Labs: Laboratory Results - last 24 hr 05/16/24 05/16/24 05/16/24 06:34 09:00 11:49 WBC RBC Hgb Hct MCV MCH MCHC RDW Plt Count MPV Immature Gran % (Auto) Neut % (Auto) Lymph % (Auto) [place] % (Auto) Eos % (Auto) Baso % (Auto) Lymph # (Auto) [place] # (Auto) Eos # (Auto) Baso # (Auto) Abs Immat Gran (auto) Absolute Neuts (auto) Absolute Nucleated RBC Nucleated RBC % Sodium Potassium Chloride Carbon Dioxide Anion Gap BUN Creatinine Estim Creat Clear Calc Estimated GFR Glucose POC Capillary Glucose 92 97 Calcium Magnesium Total Bilirubin AST ALT Alkaline Phosphatase Total Protein Albumin TSH (Reflex) 2.080 05/16/24 05/17/24 05/17/24 17:07 05:35 05:36 WBC 7.5 RBC 3.39 L Hgb 9.6 L Hct 30.4 L MCV 89.7 MCH 28.3 MCHC 31.6 L RDW 15.9 H Plt Count 225 MPV 10.6 H Immature Gran % (Auto) 0.3 Neut % (Auto) 61.2 Lymph % (Auto) 19.3 [place] % (Auto) 9.9 H Eos % (Auto) 8.6 H Baso % (Auto) 0.7 Lymph # (Auto) 1.44 [place] # (Auto) 0.7 H Eos # (Auto) 0.6 H Baso # (Auto) 0.1 Abs Immat Gran (auto) 0.02 Absolute Neuts (auto) 4.6 Absolute Nucleated RBC 0.000 Nucleated RBC % 0.0 Sodium 136 L Potassium 4.0 Chloride 110 H Carbon Dioxide 22 Anion Gap 4 BUN 32 H Creatinine 1.40 H Estim Creat Clear Calc 24 Estimated GFR 35 L Glucose 108 POC Capillary Glucose 98 Calcium 8.6 Magnesium 2.2 Total Bilirubin 0.5 AST 17 ALT 10 Alkaline Phosphatase 92 Total Protein 7.0 Albumin 3.3 L TSH (Reflex) Quality VTE Prophylaxis VTE prophylaxis: pharmacologic ordered Hospitalist MIPS Advance Care Plan I have confirmed that the patient's Advanced Care Plan is present, code status is documented, or surrogate decision maker is listed in patient medical record.: Yes Medication Reconciliation I have utilized all available resources to obtain, update and review the patients current medications (includes all prescriptions, OTC, herbals, cannabis, and nutritional supplements).: Yes
[2024-05-17 08:28] LABS: Glucose Point of Care 91 mg/dl (65-105)
--- NOTE | 2024-05-17 08:40 | PC.NURSE ---
Hospitalist, Byron Garay, notified of patient HR of 50 bpm and BP 125/58. Hospitalist okay with this RN giving morning medications as ordered.
[2024-05-17] MEDS: ATORVASTATIN 40 MG TABLET PO (08:44)
[2024-05-17] MEDS: ACETAMINOPHEN 500 MG TABLET 1000 MG PO (08:44)
[2024-05-17] MEDS: oxyBUTYnin CHLORIDE 5 MG TABLET PO (08:45)
[2024-05-17] MEDS: EMPAGLIFLOZIN 10 MG TABLET PO (08:45)
[2024-05-17] MEDS: PANTOPRAZOLE 40 MG TABLET PO (08:45)
[2024-05-17] MEDS: APIXABAN 2.5 MG TABLET PO ×2 (08:45→21:11)
[2024-05-17] MEDS: polyethylene glycoL 3350 17 GM POWD.PACK PO (08:45)
[2024-05-17] MEDS: FERROUS SULFATE 325 MG TABLET DR PO (08:45)
[2024-05-17] MEDS: METOPROLOL SUCCINATE EXT REL 100 MG TABCR PO (08:46)
[2024-05-17] MEDS: LOSARTAN POTASSIUM 50 MG TABLET PO (08:46)
[2024-05-17] MEDS: dilTIAZem HCL 60 MG TABLET 120 MG PO (08:46)
[2024-05-17] MEDS: FUROSEMIDE 40 MG TABLET PO (08:46)
--- NOTE | 2024-05-17 08:46 | ECG_ITS ---
Test Date: 2024-05-17 10:02:17 Measurements Intervals [place] Rate: 49 P: 56 RI: 304 QRS: 6 QRSD: 98 T: 1 QT: 453 QTc: 413 Interpretive Statements SINUS BRADYCARDIA WITH SINUS ARRHYTHMIA WITH FIRST DEGREE AV BLOCK LOW QRS VOLTAGE IN PRECORDIAL LEADS [QRS DEFLECTION < 1.0 mV IN CHEST LEADS] ABNORMAL ECG Electronically Signed On 05-17-2024 17:22:54 [employer] by Ignacio Muñoz M.D.
[2024-05-17 12:12] LABS: Glucose Point of Care 104 mg/dl (65-105)
[2024-05-18] MEDS: HYDROcodone/acetaminophen (*CRX) 5-325 MG TABLET 0.5 TAB PO ×3 (05:22→20:58)
[2024-05-18] MEDS: LEVOTHYROXINE SODIUM 112 MCG TABLET PO (05:22)
[2024-05-18 05:24] VITALS: BP 125/52; PULSE 55; RESP 16; TEMP 36.4; O2SAT 97
[2024-05-18 05:57] LABS: Hemoglobin 9.4 g/dL (12.0-15.0); Mean Corpuscular HGB Conc 31.3 g/dl (32-36); Mean Corpuscular Volume 89.3 fl (80-100); Mean Platelet Volume 10.2 fl (7.4-10.4); Platelet Count Result 220 k/mm3 (150-375); Red Blood Count 3.36 M/mm3 (4.2-5.4); Red Cell Distribution Width 15.8 % (11.5-14.5); White Blood Count 7.4 K/mm3 (4.5-10.0)
[2024-05-18 06:05] LABS: Anion Gap 2 mmol/L (4-12); Blood Urea Nitrogen 34 mg/dL (7-17); Calcium 8.5 mg/dL (8.4-10.2); Carbon Dioxide 25 mmol/L (22-30); Chloride 109 mmol/L (98-107); Estimated CRCL calculation 22 ml/min; Estimated Glomerular Filt Rate 33; Glucose 90 mg/dL (65-110); Potassium 4.1 mmol/L (3.4-5.0); Sodium 136 mmol/L (137-145)
[2024-05-18] MEDS: FERROUS SULFATE 325 MG TABLET DR PO (08:24)
[2024-05-18] MEDS: oxyBUTYnin CHLORIDE 5 MG TABLET PO (08:24)
[2024-05-18] MEDS: EMPAGLIFLOZIN 10 MG TABLET PO (08:24)
[2024-05-18] MEDS: LOSARTAN POTASSIUM 50 MG TABLET PO (08:24)
[2024-05-18] MEDS: dilTIAZem HCL 60 MG TABLET 120 MG PO (08:26)
[2024-05-18] MEDS: POTASSIUM CHLORIDE 20 MEQ ER TABLET PO (08:26)
[2024-05-18] MEDS: FUROSEMIDE 40 MG TABLET PO (08:27)
[2024-05-18] MEDS: ATORVASTATIN 40 MG TABLET PO (08:27)
[2024-05-18] MEDS: APIXABAN 2.5 MG TABLET PO ×2 (08:27→20:58)
[2024-05-18] MEDS: polyethylene glycoL 3350 17 GM POWD.PACK PO (08:28)
[2024-05-18] MEDS: PANTOPRAZOLE 40 MG TABLET PO (08:31)
--- NOTE | 2024-05-18 10:05 | PM.IMPN ---
Progress Note: A&P Assessment and Plan (1) Hypotension: Code(s): I95.9 - Hypotension, unspecified Status: Acute (2) Constipation: Code(s): K59.00 - Constipation, unspecified Status: Acute (3) Urinary tract infection: Code(s): N39.0 - Urinary tract infection, site not specified Status: Acute (4) Chronic kidney disease, stage 3: Code(s): N18.30 - Chronic kidney disease, stage 3 unspecified Status: Acute (5) Acute UTI: Code(s): N39.0 - Urinary tract infection, site not specified Status: Acute (6) Fall: Code(s): W19.XXXA - Unspecified fall, initial encounter Status: Acute (7) Hypothyroidism: Code(s): E03.9 - Hypothyroidism, unspecified Status: Chronic Plan This is an 88-year-old female with paroxysmal atrial fibrillation on chronic anticoagulation, hypertension, heart failure with preserved ejection fraction, chronic kidney disease stage 3, hypothyroidism, iron deficiency anemia, and gastroesophageal reflux disease who presented to the emergency department via EMS from her nursing facility with complaints of abdominal pain and burning with urination. She gives a 2 day history of dysuria and suprapubic abdominal discomfort and today she was sent in today for evaluation. (1) Urinary tract infection: Code(s): N39.0 - Urinary tract infection, site not specified Status: Acute Assessment and Plan: 05/18/24: Patient states has frequent UTI in the past. Today is doing well, cx results remain pending for sensitivities this am. Symptoms improved. Day 3 ceftriaxone. - Proteus and e. coli on speciation, 91% and 94% respectively on sensitivity/antibiogram for ceftriaxone. Consider to change Jardiance as may precipitate recurrent uti. Continue current treatment, pending susceptibility TIFFANY on CKD Upon arrival, creatinine 1.5, above baseline 1.3 in October 14, 2023 Possible due to UTI Start normal saline IV (2) Constipation: Code(s): K59.00 - Constipation, unspecified Status: Acute Assessment and Plan: 05/17/24: BM yesterday, abd. exam benign. Resolved. 05/16/24: Constipation as per imaging. Continue Miralax (3) Hypotension: Code(s): I95.9 - Hypotension, unspecified Status: Acute Assessment and Plan: 05/17/24: Resolved with stable bp. 05/16/24: Monitor and hold meds as appropriate. (4) Chronic kidney disease, stage 3: Code(s): N18.30 - Chronic kidney disease, stage 3 unspecified Status: Acute Assessment and Plan: 05/17/24: Stable labs. Trend/monitor. 05/16/24: Monitor and hold Lasix if needed for any worsening. 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 Further outpatient trending and monitoring with PCP to follow. 05/16/24: Continue Eliquis (6) Atrial fibrillation: Code(s): I48.91 - Unspecified atrial fibrillation Status: Chronic Assessment and Plan: 05/17/24: Currently SB with 1st degree block. Stable rate mid 50s generally for several days. Asymptomatic. 05/16/24: Continue Eliquis therapy Continue rate control with Metoprolol Succinate. (7) Hypertension: Code(s): I10 - Essential (primary) hypertension Status: Chronic Assessment and Plan: 05/17/24: Stable BP. 05/16/24: Continue home meds Monitor and trend VS. (8) Hypothyroidism: Code(s): E03.9 - Hypothyroidism, unspecified Status: Chronic Assessment and Plan: Continue Supplementation Plan Janet Galvez is an 88 year old female presenting with urinary tract infection (recurrent per her report) with stable vs and labwork. Urine sensitivities are pending. Subjective Date/time seen: 05/18/24 10:05 Interval history: Patient has no new issue even overnight Patient is afebrile, blood pressure stable, no O2 desaturation room air, Labs reviewed: Hemoglobin 9.4 stable, elevated BUN creatinine 34/1.5, no change Exam Narrative: GENERAL APPEARANCE: Appears to be in no acute distress. HEAD: normocephalic atraumatic EYES: PERRL, EOMI. Vision grossly intact. ENT: Hearing grossly intact, no nasal discharge NECK: Neck supple, trachea midline. CARDIAC: Normal S1/S2. Rhythm is regular. No murmurs, rubs, or gallops. No cyanosis or pallor. Extremities are warm and well perfused. LUNGS: Clear to auscultation without rales, rhonchi, wheezing or diminished breath sounds. Respirations even and unlabored. ABDOMEN: BS positive x 4 quadrants. Soft, nondistended, nontender. No guarding or rebound. MSK: No joint tenderness/swelling, fair strength in all extremities. PERIPHERAL VASCULAR: Peripheral pulses palpable. Normal perfusion, cap refill <2 seconds. Trace pedal edema. NEURO: Follows commands. No focal deficits. PSYCH: Stable, no paranoia or delusional thinking. Objective Data Vital Signs Vital Signs: Vital Signs - 24 hr 05/17/24 14:00 05/17/24 18:40 05/17/24 20:00 Temperature 97.2 F L 97.8 F Pulse Rate 54 L 112 H Respiratory Rate 18 18 Blood Pressure 105/65 104/71 Pulse Oximetry 97 96 Oxygen Delivery Room Air 05/17/24 21:08 05/18/24 05:24 Temperature 97.6 F 97.6 F Pulse Rate 55 L 55 L Respiratory Rate 18 16 Blood Pressure 111/83 125/52 L Pulse Oximetry 98 97 Oxygen Delivery Intake/Output Intake/Output: Intake & Output 05/15/24 05/16/24 05/17/24 05/18/24 23:59 23:59 23:59 23:59 Intake Total 550 2620 1910 490 Output Total 120 780 600 450 Balance 430 1840 1310 40 Meds/Results Medications: Active Medications Generic Name Dose Route Start Last Admin Trade Name Freq PRN Reason Stop Dose Admin Acetaminophen 1,000 mg 05/16/24 11:23 05/17/24 08:44 Acetaminophen 500 Mg Tablet PO 1,000 mg Q6H PRN Administration pain Hydrocodone Bitart/Acetaminophen 0.5 tab 05/16/24 11:25 05/18/24 05:22 Hydrocodone/Acetaminophen (*Crx) 5-325 Mg Tablet PO 0.5 tab Q8HR NAYELI Administration Apixaban 2.5 mg 05/16/24 11:45 05/18/24 08:27 Apixaban 2.5 Mg Tablet PO 2.5 mg Q12HR NAYELI Administration Atorvastatin Calcium 40 mg 05/16/24 11:45 05/18/24 08:27 Atorvastatin 40 Mg Tablet PO 40 mg DAILY NAYELI Administration Diltiazem HCl 120 mg 05/16/24 11:45 05/18/24 08:26 Diltiazem Hcl 60 Mg Tablet PO 120 mg DAILY NAYELI Administration Empagliflozin 10 mg 05/16/24 11:45 05/18/24 08:24 Empagliflozin 10 Mg Tablet PO 10 mg DAILY NAYELI Administration Ferrous Sulfate 325 mg 05/16/24 11:45 05/18/24 08:24 Ferrous Sulfate [address] PO 06/16/24 11:44 325 mg DAILY NAYELI Administration Furosemide 40 mg 05/16/24 11:45 05/18/24 08:27 Furosemide 40 Mg Tablet PO 40 mg DAILY NAYELI Administration Ceftriaxone Sodium 1 gm in 50 mls @ 100 mls/hr 05/16/24 18:00 05/17/24 17:49 Rocephin 1 Gm/Ns 50 Ml IVPB Infused Q24H NAYELI Infusion Levothyroxine Sodium 112 mcg 05/17/24 06:30 05/18/24 05:22 Levothyroxine Sodium 112 Mcg Tablet PO 112 mcg DAILY@0630 NAYELI Administration Loperamide HCl 2 mg 05/16/24 11:23 Loperamide Hcl 2 Mg Capsule PO Q6H PRN loose stool Losartan Potassium 50 mg 05/16/24 11:45 05/18/24 08:24 Losartan Potassium 50 Mg Tablet PO 50 mg DAILY NAYELI Administration Metoprolol Succinate 100 mg 05/16/24 11:45 05/17/24 08:46 Metoprolol Succinate Ext Rel 100 Mg Tabcr PO 100 mg DAILY NAYELI Administration Oxybutynin Chloride 5 mg 05/16/24 11:45 05/18/24 08:24 Oxybutynin Chloride 5 Mg Tablet PO 5 mg DAILY NAYELI Administration Pantoprazole Sodium 40 mg 05/16/24 11:45 05/18/24 08:31 Pantoprazole 40 Mg Tablet PO 06/16/24 11:44 40 mg DAILY NAYELI Administration Polyethylene Glycol 17 gm 05/16/24 09:00 05/18/24 08:28 Polyethylene Glycol 3350 17 Gm Powd.Pack PO 17 gm QAM NAYELI Administration Potassium Chloride 20 meq 05/16/24 11:50 05/18/24 08:26 Potassium Chloride 20 Meq Er Tablet PO 20 meq Q48HR NAYELI Administration Radiology Results: ITS Impressions Abdomen/Pelvis CT 05/15/24 18:07 IMPRESSION: 1. Cystitis and bilateral pyelitis. 2. Stool distends the rectum. 3. Moderate-sized sliding hiatal hernia. Labs Labs: Laboratory Results - last 24 hr 05/17/24 05/18/24 11:45 05:49 WBC 7.4 RBC 3.36 L Hgb 9.4 L Hct 30.0 L MCV 89.3 MCH 28.0 MCHC 31.3 L RDW 15.8 H Plt Count 220 MPV 10.2 Sodium 136 L Potassium 4.1 Chloride 109 H Carbon Dioxide 25 Anion Gap 2 L BUN 34 H Creatinine 1.50 H Estim Creat Clear Calc 22 Estimated GFR 33 L Glucose 90 POC Capillary Glucose 104 Calcium 8.5
[2024-05-18 11:12] VITALS: PULSE 48
[2024-05-18] MEDS: SODIUM CHLORIDE 0.9% IV 1,000 ML 100 ML IV CONT ×2 (12:02→22:05)
[2024-05-18 13:59] VITALS: BP 119/92; PULSE 54; RESP 16; TEMP 36.3; O2SAT 99
[2024-05-18] MEDS: LOPERAMIDE HCL 2 MG CAPSULE PO (20:58)
[2024-05-18 22:00] VITALS: BP 123/55; PULSE 55; RESP 18; TEMP 36.1; O2SAT 100
[2024-05-19 06:00] VITALS: BP 153/90; PULSE 64; RESP 18; TEMP 36.2; O2SAT 99
[2024-05-19] MEDS: HYDROcodone/acetaminophen (*CRX) 5-325 MG TABLET 0.5 TAB PO ×3 (06:09→20:59)
[2024-05-19] MEDS: LEVOTHYROXINE SODIUM 112 MCG TABLET PO (06:09)
[2024-05-19 06:28] LABS: Potassium 3.9 mmol/L (3.4-5.0)
[2024-05-19] MEDS: ACETAMINOPHEN 500 MG TABLET 1000 MG PO (09:01)
[2024-05-19 09:03] VITALS: PULSE 68
[2024-05-19] MEDS: FERROUS SULFATE 325 MG TABLET DR PO (09:03)
[2024-05-19] MEDS: ATORVASTATIN 40 MG TABLET PO (09:03)
[2024-05-19] MEDS: FUROSEMIDE 40 MG TABLET PO (09:03)
[2024-05-19] MEDS: oxyBUTYnin CHLORIDE 5 MG TABLET PO (09:03)
[2024-05-19] MEDS: APIXABAN 2.5 MG TABLET PO ×2 (09:03→21:00)
[2024-05-19] MEDS: PANTOPRAZOLE 40 MG TABLET PO (09:03)
[2024-05-19] MEDS: METOPROLOL SUCCINATE EXT REL 100 MG TABCR PO (09:03)
[2024-05-19] MEDS: LOSARTAN POTASSIUM 50 MG TABLET PO (09:03)
[2024-05-19] MEDS: dilTIAZem HCL 60 MG TABLET 120 MG PO (09:04)
[2024-05-19] MEDS: EMPAGLIFLOZIN 10 MG TABLET PO (09:05)
[2024-05-19] MEDS: SODIUM CHLORIDE 0.9% IV 1,000 ML 100 ML IV CONT (09:06)
--- NOTE | 2024-05-19 11:34 | PM.IMPN ---
Progress Note: A&P Assessment and Plan (1) Hypotension: Code(s): I95.9 - Hypotension, unspecified Status: Acute (2) Constipation: Code(s): K59.00 - Constipation, unspecified Status: Acute (3) Urinary tract infection: Code(s): N39.0 - Urinary tract infection, site not specified Status: Acute (4) Chronic kidney disease, stage 3: Code(s): N18.30 - Chronic kidney disease, stage 3 unspecified Status: Acute (5) Acute UTI: Code(s): N39.0 - Urinary tract infection, site not specified Status: Acute (6) Fall: Code(s): W19.XXXA - Unspecified fall, initial encounter Status: Acute (7) Hypothyroidism: Code(s): E03.9 - Hypothyroidism, unspecified Status: Chronic Plan (1) Urinary tract infection: Code(s): N39.0 - Urinary tract infection, site not specified Status: Acute Assessment and Plan: 05/18/24: Patient states has frequent UTI in the past. Today is doing well, cx results remain pending for sensitivities this am. Symptoms improved. Day 4 ceftriaxone. - Proteus and e. coli on UC sensitive to iv rocephin Consider to change Jardiance as may precipitate recurrent uti. continue 1 more day of iv abx TIFFANY on CKD Upon arrival, creatinine 1.5, above baseline 1.3 in October 14, 2023 Possible due to UTI dc fluids encourage oral fluids (2) Constipation: Code(s): K59.00 - Constipation, unspecified Status: Acute Assessment and Plan: 05/17/24: BM yesterday, abd. exam benign. Resolved. 05/16/24: Constipation as per imaging. Continue Miralax (3) Hypotension: Code(s): I95.9 - Hypotension, unspecified Status: Acute Assessment and Plan: 05/17/24: Resolved with stable bp. 05/16/24: Monitor and hold meds as appropriate. monitor orthostatics restart Bp meds on Dc (4) Chronic kidney disease, stage 3: Code(s): N18.30 - Chronic kidney disease, stage 3 unspecified Status: Acute Assessment and Plan: 05/17/24: Stable labs. Trend/monitor. 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 Further outpatient trending and monitoring with PCP to follow. 05/16/24: Continue Eliquis (6) Atrial fibrillation: Code(s): I48.91 - Unspecified atrial fibrillation Status: Chronic Assessment and Plan: 05/17/24: Currently SB with 1st degree block. Stable rate mid 50s generally for several days. Asymptomatic. 05/16/24: Continue Eliquis therapy Continue rate control with Metoprolol Succinate. (7) Hypertension: Code(s): I10 - Essential (primary) hypertension Status: Chronic Assessment and Plan: 05/17/24: Stable BP. 05/16/24: Continue home meds Monitor and trend VS. (8) Hypothyroidism: Code(s): E03.9 - Hypothyroidism, unspecified Status: Chronic Assessment and Plan: Continue Supplementation Subjective Date/time seen: 05/19/24 11:34 Interval history: 8-year-old female with paroxysmal atrial fibrillation on chronic anticoagulation, hypertension, heart failure with preserved ejection fraction, chronic kidney disease stage 3, hypothyroidism, iron deficiency anemia, and gastroesophageal reflux disease who presented to the emergency department via EMS from her nursing facility with complaints of abdominal pain and burning with urination. Pt admitted with UTI, hypotension and dehydration pt found to have ecoli and proteus in UC Pt receiving fluids feels better lives in [place] DC back to [place] in 1-2 days time Review of Systems Review of Systems: No acute issues Exam Narrative: GENERAL APPEARANCE:elderly lady answering questions appropriately ENT: Hearing grossly intact, no nasal discharge NECK: Neck supple, trachea midline. CARDIAC: Normal S1/S2. Rhythm is regular. No murmurs, rubs, or gallops. No cyanosis or pallor. Extremities are warm and well perfused. LUNGS: Clear to auscultation without rales, rhonchi, wheezing or diminished breath sounds. Respirations even and unlabored. ABDOMEN: BS positive x 4 quadrants. Soft, nondistended, nontender. No guarding or rebound. MSK: No joint tenderness/swelling, fair strength in all extremities. PERIPHERAL VASCULAR: Peripheral pulses palpable. Normal perfusion, cap refill <2 seconds. Trace pedal edema. NEURO: Follows commands. No focal deficits. PSYCH: Stable, no paranoia or delusional thinking. Objective Data Vital Signs Vital Signs: Vital Signs - 24 hr 05/18/24 13:59 05/18/24 20:00 05/18/24 22:00 Temperature 36.3 C L 36.1 C L Pulse Rate 54 L 55 L Respiratory Rate 16 18 Blood Pressure 119/92 H 123/55 L Pulse Oximetry 99 100 Oxygen Delivery Room Air 05/19/24 06:00 05/19/24 09:03 Temperature 36.2 C L Pulse Rate 64 68 Respiratory Rate 18 Blood Pressure 153/90 H Pulse Oximetry 99 Oxygen Delivery Intake/Output Intake/Output: Intake & Output 05/16/24 05/17/24 05/18/24 05/19/24 23:59 23:59 23:59 23:59 Intake Total 2620 1910 1830 1240 Output Total 106 792 5718 700 Balance 1840 1310 780 540 Meds/Results Medications: Active Medications Generic Name Dose Route Start Last Admin Trade Name Freq PRN Reason Stop Dose Admin Acetaminophen 1,000 mg 05/16/24 11:23 05/19/24 09:01 Acetaminophen 500 Mg Tablet PO 1,000 mg Q6H PRN Administration pain Hydrocodone Bitart/Acetaminophen 0.5 tab 05/16/24 11:25 05/19/24 06:09 Hydrocodone/Acetaminophen (*Crx) 5-325 Mg Tablet PO 0.5 tab Q8HR NAYELI Administration Apixaban 2.5 mg 05/16/24 11:45 05/19/24 09:03 Apixaban 2.5 Mg Tablet PO 2.5 mg Q12HR NAYELI Administration Atorvastatin Calcium 40 mg 05/16/24 11:45 05/19/24 09:03 Atorvastatin 40 Mg Tablet PO 40 mg DAILY NAYELI Administration Diltiazem HCl 120 mg 05/16/24 11:45 05/19/24 09:04 Diltiazem Hcl 60 Mg Tablet PO 120 mg DAILY NAYELI Administration Empagliflozin 10 mg 05/16/24 11:45 05/19/24 09:05 Empagliflozin 10 Mg Tablet PO 10 mg DAILY NAYELI Administration Ferrous Sulfate 325 mg 05/16/24 11:45 05/19/24 09:03 Ferrous Sulfate [address] PO 06/16/24 11:44 325 mg DAILY NAYELI Administration Furosemide 40 mg 05/16/24 11:45 05/19/24 09:03 Furosemide 40 Mg Tablet PO 40 mg DAILY NAYELI Administration Ceftriaxone Sodium 1 gm in 50 mls @ 100 mls/hr 05/16/24 18:00 05/18/24 18:12 Rocephin 1 Gm/Ns 50 Ml IVPB Infused Q24H NAYELI Infusion Sodium Chloride 1,000 mls @ 100 mls/hr 05/18/24 10:15 05/19/24 09:06 Normal Saline Iv IV CONT 100 mls/hr .Q10H NAYELI Administration Levothyroxine Sodium 112 mcg 05/17/24 06:30 05/19/24 06:09 Levothyroxine Sodium 112 Mcg Tablet PO 112 mcg DAILY@0630 NAYELI Administration Loperamide HCl 2 mg 05/16/24 11:23 05/18/24 20:58 Loperamide Hcl 2 Mg Capsule PO 2 mg Q6H PRN Administration loose stool Losartan Potassium 50 mg 05/16/24 11:45 05/19/24 09:03 Losartan Potassium 50 Mg Tablet PO 50 mg DAILY NAYELI Administration Metoprolol Succinate 100 mg 05/16/24 11:45 05/19/24 09:03 Metoprolol Succinate Ext Rel 100 Mg Tabcr PO 100 mg DAILY NAYEIL Administration Oxybutynin Chloride 5 mg 05/16/24 11:45 05/19/24 09:03 Oxybutynin Chloride 5 Mg Tablet PO 5 mg DAILY NAYELI Administration Pantoprazole Sodium 40 mg 05/16/24 11:45 05/19/24 09:03 Pantoprazole 40 Mg Tablet PO 06/16/24 11:44 40 mg DAILY NAYELI Administration Polyethylene Glycol 17 gm 05/16/24 09:00 05/19/24 09:04 Polyethylene Glycol 3350 17 Gm Powd.Pack PO Not Given QAM [facility] Potassium Chloride 20 meq 05/16/24 11:50 05/18/24 08:26 Potassium Chloride 20 Meq Er Tablet PO 20 meq Q48HR NAYELI Administration Radiology Results: ITS Impressions Abdomen/Pelvis CT 05/15/24 18:07 IMPRESSION: 1. Cystitis and bilateral pyelitis. 2. Stool distends the rectum. 3. Moderate-sized sliding hiatal hernia. Labs Labs: Laboratory Results - last 24 hr 05/19/24 05:51 Potassium 3.9
[2024-05-19 15:08] VITALS: BP 106/60; PULSE 55; RESP 18; TEMP 36.1; O2SAT 98
[2024-05-19 22:00] VITALS: BP 129/63; PULSE 50; RESP 18; TEMP 36.2; O2SAT 97
[2024-05-20 06:00] VITALS: BP 132/53; PULSE 51; RESP 18; TEMP 36.3; O2SAT 97
[2024-05-20 06:01] LABS: Hemoglobin 8.7 g/dL (12.0-15.0); Mean Corpuscular Hemoglobin 27.5 pg (26-34); Mean Corpuscular Volume 91.8 fl (80-100); Mean Platelet Volume 10.4 fl (7.4-10.4); Platelet Count Result 207 k/mm3 (150-375); Red Blood Count 3.16 M/mm3 (4.2-5.4); Red Cell Distribution Width 15.9 % (11.5-14.5); White Blood Count 6.6 K/mm3 (4.5-10.0)
[2024-05-20 06:30] LABS: Anion Gap 2 mmol/L (4-12); Blood Urea Nitrogen 22 mg/dL (7-17); Calcium 8.3 mg/dL (8.4-10.2); Carbon Dioxide 21 mmol/L (22-30); Chloride 115 mmol/L (98-107); Estimated CRCL calculation 30 ml/min; Estimated Glomerular Filt Rate 47; Glucose 91 mg/dL (65-110); Potassium 3.5 mmol/L (3.4-5.0); Sodium 138 mmol/L (137-145)
[2024-05-20] MEDS: LEVOTHYROXINE SODIUM 112 MCG TABLET PO (06:44)
[2024-05-20] MEDS: HYDROcodone/acetaminophen (*CRX) 5-325 MG TABLET 0.5 TAB PO ×2 (06:44→14:46)
[2024-05-20] MEDS: FUROSEMIDE 40 MG TABLET PO (10:06)
[2024-05-20] MEDS: oxyBUTYnin CHLORIDE 5 MG TABLET PO (10:06)
[2024-05-20 10:07] VITALS: PULSE 65
[2024-05-20] MEDS: ATORVASTATIN 40 MG TABLET PO (10:07)
[2024-05-20] MEDS: PANTOPRAZOLE 40 MG TABLET PO (10:07)
[2024-05-20] MEDS: FERROUS SULFATE 325 MG TABLET DR PO (10:07)
[2024-05-20] MEDS: APIXABAN 2.5 MG TABLET PO (10:07)
[2024-05-20] MEDS: POTASSIUM CHLORIDE 20 MEQ ER TABLET PO (10:07)
[2024-05-20] MEDS: LOSARTAN POTASSIUM 50 MG TABLET PO (10:07)
[2024-05-20] MEDS: dilTIAZem HCL 60 MG TABLET 120 MG PO (10:07)
[2024-05-20] MEDS: METOPROLOL SUCCINATE EXT REL 100 MG TABCR PO (10:07)
[2024-05-20] MEDS: polyethylene glycoL 3350 17 GM POWD.PACK PO (10:10)
[2024-05-20] MEDS: EMPAGLIFLOZIN 10 MG TABLET PO (10:10)
[2024-05-20 13:55] VITALS: BP 99/71; PULSE 55; RESP 18; TEMP 36.6; O2SAT 98
[2024-05-20 14:56] VITALS: BP 100/50
--- NOTE | 2024-05-20 15:15 | P.DS_ITS ---
DS: Admitting Diagnosis Discharge Date 05/20/2024 Admitting Diagnosis Hypotension constipation urinary tract infection chronic kidney disease fall hypothyroidism DS: Discharge Diagnosis Discharge Diagnosis (1) Hypotension: Code(s): I95.9 - Hypotension, unspecified Status: Acute (2) Constipation: Code(s): K59.00 - Constipation, unspecified Status: Acute (3) Chronic kidney disease, stage 3: Code(s): N18.30 - Chronic kidney disease, stage 3 unspecified Status: Acute (4) Acute UTI: Code(s): N39.0 - Urinary tract infection, site not specified Status: Acute (5) Fall: Code(s): W19.XXXA - Unspecified fall, initial encounter Status: Acute (6) Hypothyroidism: Code(s): E03.9 - Hypothyroidism, unspecified Status: Chronic DS: Summary Hospital Course Reason for hospitalization: Hypotension constipation urinary tract infection chronic kidney disease fall hypothyroidism Hospital Course: 88-year-old female with paroxysmal atrial fibrillation on chronic anticoagulation, hypertension, heart failure with preserved ejection fraction, chronic kidney disease stage 3, hypothyroidism, iron deficiency anemia, and gastroesophageal reflux disease who presented to the emergency department via EMS from her nursing facility with complaints of abdominal pain and burning with urination. Patients blood pressures were initially soft on admission however she received fluids and this resolved. Patient was able to resume her antihypertensives at time of discharge. Urine sample was obtained and concerning for infection. Patient was started on antibiotics at that time. Urine culture grew ecoli and proteus mirabilis. Patient transitioned to oral antibiotics based on sensitivities. Patient was originally having some constipation, but this resolved after being started on a bowel regimen. At time of dischage patient had no complaints denying chest pain, shortness of breath, palpitations, nausea/vomiting and abdominal pain. Patient discharged back to her nursing facility in a stable condition. She is to follow up with her PCP in 1 week. Status at Discharge Functional status at discharge: uses cane/walker Time Spent with Patient Time attestation: Total time spent providing and/or coordinating discharge services: Time spent: Greater than 30 minutes Exam Narrative: AF HR 55 RR 18 SPO2 98 BP 100/50 General: female in no acute respiratory distress who is nontoxic appearing, lying semi recumbent in bed. HEENT: Normocephalic. Atraumatic. Extraocular movement intact. Sclera clear and anicteric. No facial asymmetry. Chest: Lungs are clear to auscultation bilaterally. No wheezes or crackles. CV: Heart was regular rate and rhythm. S1-S2. No murmurs, gallops, or rubs. Abd: Abdomen was soft. Nontender. Nondistended. Positive bowel sounds. No organomegaly or masses. Ext: No clubbing, cyanosis, or edema. 2+ DP pulses bilaterally. Neuro: Patient is alert and oriented x4. Speech is clear. DS: Data Data Completed and Pending Completed studies during hospitalization: abdomen/pelvis CT Labs on day of discharge: Labs from last 24 hours 05/20/24 05:37 WBC 6.6 RBC 3.16 L Hgb 8.7 L Hct 29.0 L MCV 91.8 MCH 27.5 MCHC 30.0 L RDW 15.9 H Plt Count 207 MPV 10.4 Sodium 138 Potassium 3.5 Chloride 115 H Carbon Dioxide 21 L Anion Gap 2 L BUN 22 H D Creatinine 1.10 H Estim Creat Clear Calc 30 Estimated GFR 47 L Glucose 91 Calcium 8.3 L Preliminary micro results at discharge 05/16/24 06:41 Blood Culture - Preliminary Blood 05/16/24 06:33 Blood Culture - Preliminary Blood Discharge Plan Discharge Attending physician on discharge: Johana Phillips Consulting providers: Byron Garay; Dante Amezcua; Carmella Christian; Albania Tatum; Ignacio Muñoz; Leo Bagley; Angelique Peralta; Oscar Perez V. Discharging Clinician: Renee Moreno Anticipated Discharge Date/Time: 05/20/24 15:04 Patient Disposition: [facility] Activity: as tolerated Diet: as tolerated and heart healthy Discharge Instructions: Discharge disposition: Patient was admitted to the hospital for a urinary tract infection Take all medications as prescribed even if feeling better Augmentin, course to be completed on 05/22/24. Attached is information on this medication. Eat well balanced meals and stay hydrated Keep active to remain strong Avoid use of diapers or pads Good sameer Care every 2 hours Trend urine output Patient was noted to be constipated Started on miralax daily Monitor stool output Monitor blood pressures Take caution while standing, rising, or moving Change positions slowly taking a break between each position change If you standing feel dizzy sit back down and take a break Strict bleeding precautions since you remain on eliquis including shaving with an electric razor, holding pressure for greater than 20 minutes for injury, protection of had with any falls, etc. Encouraged to continue with yearly vaccinations Return to the emergency department if he developed sudden shortness of breath, chest pain, nausea, vomiting, upset stomach or intractable diarrhea Return to the emergency department if you develop fever greater than 101.5 Follow-up with the primary care physician within 1-2 weeks Thank you for [facility] for your healthcare needs Patient Instructions: Antibiotic Form, Amoxicillin/Clavulanate Potassium (By mouth), Apixaban (By mouth), Heart Failure (GEN), Blood Thinners (DC), Urinary Tract Infection in Older Adults (DC) Patient Language: Somali Stand Alone Forms: General Discharge Information Follow-up/Referrals: Viktor,Khang Moran MD [Primary Care Provider] - 1 Week Discharge Medications: New polyethylene glycol 3350 [Miralax] 17 gram Powder In Packet 17 g PO QAM Qty: 14 0RF amoxicillin-pot clavulanate 875-125 mg tablet 1 tablet PO Q12H Qty: 6 0RF Continued hydrocodone-acetaminophen 5-325 mg tablet 0.5 tablet PO Q8H metoprolol succinate 100 mg tablet extended release 24 hr 100 mg PO DAILY diltiazem HCl 120 mg tablet 120 mg PO DAILY omeprazole 20 mg capsule,delayed release(DR/EC) 20 mg PO DAILY levothyroxine 112 mcg tablet 112 mcg PO DAILY Eliquis 2.5 mg tablet 2.5 mg PO BID losartan 50 mg tablet 50 mg PO DAILY atorvastatin 40 mg tablet 40 mg PO DAILY Jardiance 10 mg tablet 10 mg PO DAILY furosemide 40 mg tablet 40 mg PO DAILY potassium chloride 20 mEq Tablet Extended Release 20 meq PO EVERY OTHER DAY ferrous sulfate 325 mg (65 mg iron) Tablet 325 mg PO DAILY oxybutynin chloride 5 mg tablet 5 mg PO DAILY loperamide [Anti-Diarrheal (loperamide)] 2 mg tablet 2 mg PO Q6H PRN (Reason: loose stool) UTI-Stat 3,875 mg/30 mL liquid 1 ea PO BID Rx Instructions: 30mls acetaminophen 500 mg tablet 1,000 mg PO Q6H PRN (Reason: pain) Date of admission: 05/17/24 09:00 Primary Care Provider: Viktor,Khang Moran Admitting Provider: Allan Webster Attending physician on admission: Renee Moreno Condition: Stable Hospitalist MIPS Heart Failure (Exclusion) Patient has history of Heart Transplant or Left Ventricular Assistive Device?: No IF YES, STOP HERE Heart Failure (Qualifier) Patient has current or prior documentation of LVEF less than or equal to 40%, or mod/servere depressed LVSF?: No IF NO, STOP HERE
--- OUTSIDE RECORDS SUMMARY | 2024-05-22 20:07 | XMS_ITS | CONTINUITY OF CARE DOCUMENT ---
Author Name adrian campbell Address Unknown Organization [facility] Address [address] [place] [address] Phone [phone] Care Team Providers Care Broom Handle Dipper Name Role Phone Aleyda JARAMILLO, Olvin Unavailable Olvin Maynard MD Unavailable Johanna Nieto MD Unavailable PROBLEMS Condition Status Date Provider Notes Pulmonary hypertension active Olvin Maynard MD Valvular heart disease active Olvin Maynard MD Diastolic CHF active Olvin Maynard MD Hyperkalemia; active Olvin Maynard MD Pulmonary nodule active Olvin Maynard MD CAD active Olvin Maynard MD Anemia, B12 deficiency active Olvin Maynard MD nml folate Anemia, iron deficiency active Olvin barragan MD Hyperlipidemia;with high crp active Olvin Maynard MD COUGH DUE TO CHLOÉ INHIBITORS, HX OF active Olvin Maynard MD Renal disease, chronic, mild active Olvin Maynard MD neg urac, on arb and jardicne Atrial fib paroxysmal;NML TSH on rx active Olvin Maynard MD AV block, 1st degree;due to meds active Olvin Maynard MD Bradycardia;due to rx active Olvin Maynard MD Screening active Olvin Maynard MD covid ;HAD VACCINE active Olvin pathak MD Knee pain, right, chronic active Olvin pathak MD Hypothyroidism active Olvin Maynard MD Obesity active Olvin Maynard MD HTN essential active Olvin Maynard MD ENCOUNTERS Date Type Provider Location Encounter Diag nosis 8 - 8 In-person encounter Office Visit Olvin Maynard MD [facility] ScreeningRenal disease, chronic, mildCOUGH DUE TO CHLOÉ INHIBITORS, HX OF 3 - 3 In-person encounter Office Visit Olvin Maynard MD [place] [facility] covid 19;2020;HAD VACCINEBradycardia;due to rxAV block, 1st degree;due to medsAtrial fib paroxysmal;NML TSH on rx 6 - 6 In-person encounter Office Visit Olvin Maynard MD [place] [facility] HTN essentialObesityHypothyroidismKnee pain, right, chronic VITAL SIGNS Date Observation Value Provider Body Mass Index (Ratio) 30.04 kg/m2 Natalie Maynard MD blood pressure, diastolic 90 mm[Hg] Delmy Pelaez blood pressure, systolic 127 mm[Hg] Domenica Guevara blood pressure, diastolic 90 mm[Hg] [facility] james Carvalho blood pressure, systolic 127 mm[Hg] Jacquie Carvalho oxygen saturation, oximetry 99 % Kelsie Carvalho pulse rate 75 /min Kelsie Carvalho respiratory rate E&M 16 /min Kelsie hernandez weight E&M 175 [lb_av] Kelsie Carvalho height E&M 64 [in_i] Kelsie Carvalho Body Mass Index (Ratio) 32.61 kg/m2 Natalie Maynard MD blood pressure, diastolic 70 mm[Hg] Delmy Pelaez blood pressure, systolic 130 mm[Hg] Domenica Guevara blood pressure, resting Yes Cynt mira Guevara blood pressure, cuff size regular Cy lacy Guevara blood pressure, diastolic 70 mm[Hg] Johan Guevara blood pressure, systolic 130 mm[Hg] Kelly Guevara oxygen saturation, oximetry 96 % Swetha Guevara pulse rate 77 /min Swetha lynn respiratory rate E&M 16 /min Swetha Guevara height E&M 64 [in_i] Swetha lynn weight E&M 190 [lb_av] Swetha lynn ALLERGIES Allergy Name Onset Date Reaction Criticality Status ZESTRIL cough cough Low Criticality active RESULTS Date Observation Value Provider Reference Range Interpretation Location 8 thyroid stimulating hormone, serum 2.93 u[IU]/mL [facility] 0.40-4.50 Normal 8 thyroxine, serum, free 1.2 ng/dL [facility] 0.8-1.8 Normal 8 triiodothyronine (T3), serum 56 ng/dL [facility] 76-181 Low 8 folate, serum 6.6 ng/mL [facility] Normal 8 C-reactive protein, by highly sensitive test >10.0 mg/L [facility] High 8 basophils as percent of blood leukocytes 0.5 % [facility] Normal 8 eosinophils as percent of blood leukocytes 4.4 % [facility] Normal 8 monocyte count, blood 10.5 % [facility] Normal 8 lymphocyte count, blood 16.8 % [facility] Normal 8 neutrophils as percent of blood leukocytes 67.8 % [facility] Normal 8 basophils, absolute, manual 29 cells/mcL [facility] 0-200 Normal 8 eosinophils, absolute, manual 251 cells/mcL [facility] 15-500 Normal 8 monocytes, absolute, manual 599 cells/mcL [facility] 200-950 Normal 8 lymphocytes, absolute 958 CELLS/UL [facility] 850-3900 Normal 8 Absolute Neutrophil count 3865 cells/mcL [facility] 3734-8152 Normal 8 mean platelet volume 10.5 fL [facility] 7.5-12.5 Normal 8 platelet count 245 THOUSAND/ UL [facility] 140-400 Normal 8 red blood cell distribution width 14.2 % [facility] 11.0-15.0 Normal 8 mean corpuscular hemoglobin concentration, RBC 33.6 G/DL [facility] 32.0-36.0 Normal 8 mean corpuscular hemoglobin, RBC 31.6 pg [facility] 27.0-33.0 Normal 8 mean corpuscular volume, RBC 94.2 fL [facility] 80.0-100.0 Normal 8 hematocrit, blood 27.7 % [facility] 35.0-45.0 Low 8 hemoglobin electrophoresis, blood 9.3 [facility] 11.7-15.5 Low 8 erythrocyte (RBC) count 2.94 MILLION/U L [facility] 3.80-5.10 Low 8 leukocyte (white blood cells) count, blood 5.7 THOUSAND/ UL [facility] 3.8-10.8 Normal 8 NT-pro BNP 307 [facility] Normal 8 alanine aminotransferase (SGPT), serum 9 1/L [facility] 6-29 Normal 8 aspartate aminotransferase (SGOT), serum 11 1/L [facility] 10-35 Normal 8 alkaline phosphatase, serum 74 1/L [facility] 37-153 Normal 8 bilirubin, serum, total 0.3 mg/dL [facility] 0.2-1.2 Normal 8 albumin/globulin ratio, serum 1.3 (calc) [facility] 1.0-2.5 Normal 8 globulins, serum, total 3.1 G/DL (CALC) [facility] 1.9-3.7 Normal 8 albumin, serum 4.1 g/dL [facility] 3.6-5.1 Normal 8 protein, total, serum 7.2 g/dL [facility] 6.1-8.1 Normal 8 calcium, serum 9.4 mg/dL [facility] 8.6-10.4 Normal 8 carbon dioxide, venous blood 24 mmol/L [facility] 20-32 Normal 8 chloride, serum 106 mmol/L [facility] 98-110 Normal 8 potassium, serum 6.0 mmol/L [facility] 3.5-5.3 High 8 sodium, serum 138 mmol/L [facility] 135-146 Normal 8 urea nitrogen/creatinine ratio, serum 38 (calc) [facility] 6-22 High 8 creatinine, serum 1.55 mg/dL [facility] 0.60-0.95 High 8 urea nitrogen, blood 59 mg/dL [facility] 7-25 High 8 blood glucose, random 91 mg/dL [facility] 65-99 Normal 8 cholesterol, non-HDL, total 131 MG/DL (CALC) [facility] <130 High 8 cholesterol/HDL ratio, serum, percent 3.1 (calc) [facility] <5.0 Normal 8 LDL cholesterol, serum 107 MG/DL (CALC) [facility] High 8 triglyceride, serum, fasting 127 mg/dL [facility] <150 Normal 8 HDL cholesterol, serum 61 mg/dL [facility] > OR = 50 Normal 8 cholesterol, serum 192 mg/dL [facility] <200 Normal HISTORY OF MEDICATION USE Medication Status Instructions Dates Provider Indications Com ments losartan 50 mg tablet active TAKE ONE (1) TABLET BY MOUTH ONCE a DAY Olvin Maynard MD lisinopril 40 mg tablet completed TAKE 1 TABLET BY MOUTH EVERY DAY DIRECTED - Olvin Maynard MD furosemide 40 mg tablet active TAKE 1 TABLET BY MOUTH EVERY DAY Olvin Maynard MD Eliquis 2.5 mg tablet active Olvin Maynard MD diltiazem HCl 120 mg capsule,extended release 24hr active TAKE 1 CAPSULE BY MOUTH EVERY DAY Olvin Maynard MD Jardiance 10 mg tablet active Take 1 tablet by mouth once a day Olvin Maynard MD Veltassa 8.4 gram powder in packet active Drink 1 packet dissolved in water once a day mix with 1/3 cup of water and drink daily Olvin Maynard MD Lipitor 40 mg tablet active TAKE 1 TABLET BY MOUTH EVERY DAY Olvin Maynard MD ferrous sulfate 325 mg (65 mg iron) tablet active TAKE 1 TABLET BY MOUTH EVERY DAY Olvin Maynard MD Vitamin B-12 1,000 mcg tablet active TAKE 1 TABLET BY MOUTH DAILY Olvin Maynard MD ferrous sulfate 325 mg (65 mg iron) tablet completed tablet by mouth once a day - Olvin Maynard MD Vitamin B-12 1,000 mcg tablet completed 1 tablet once a day - Olvin Maynard MD One-A-Day Women's 50 Plus 400-20 mcg tablet completed once a day - Olvin Maynard MD metoprolol succinate 100 mg tablet extended release 24 hr active Take 1 tablet by mouth once a day Swetha Guevara #90, 90 days supply, Prescribed by JOHANNA NIETO, Filled 06/22/2020 trospium 20 mg tablet active Take 1 tablet by mouth once a day as directed Swetha Guevara #90, 90 days supply, Prescribed by JOHANNA NIETO, Filled 10/22/2020 omeprazole 40 mg capsule,delayed release(/EC) active Take 1 capsule by mouth once a day as directed Swetha Guevara #90, 90 days supply, Prescribed by JOHANNA NIETO, Filled 11/02/2020 alendronate 70 mg tablet completed Take 1 tablet by mouth once a week - Olvin Maynard MD #4, 28 days supply, Prescribed by JOHANNA NIETO, Filled 11/02/2020 levothyroxine 150 mcg tablet active 1 tablet by mouth once a day Olvin Maynard MD #90, 90 days supply, Prescribed by JOHANNA NIETO, Filled 11/06/2020 SOCIAL HISTORY Date Observation Value Provider social history reviewed E&M revi ewed - no changes required Olvin Maynard MD social history E&M S moking History: Josefa irwin has never smoked. Olvin Maynard MD social history reviewed E&M revi ewed - no changes required Olvin Maynard MD smoking status Never smoker Kelsie Deven social history E&M S moking History: Josefa irwin has never smoked. Olvin Maynard MD social history reviewed E&M revi ewed - no changes required Olvin Maynard MD smoking status Never smoker Swetha brown FUNCTIONAL STATUS Date Observation Value Provider HRA, CV Assess/Plan, Angina (inactive) Management Plan continue current therapy Olvin Maynard MD FAMILY HISTORY Family Member Condition Son Family History of Di abetes: INSURANCE PROVIDERS Payer name Policy type / Coverage type [place] red democrat ID [place] [facility] Medicaid 4 [id number] [place] [id number] ADVANCE DIRECTIVES Name Date DISCUSSED - NO DECISION MADE TREATMENT PLAN Date Name Performer [id number],C,cold on pet , repeta 6 motnbsh Olvin Maynard MD [id number],S, Olvin barragan MD [id number],S, Olvin barragan MD [id number],B, Olvin barragan MD [id number],C, 3 07 Olvin Maynard MD [id number],S, n eg dvt scan Olvin Maynard MD [id number],S, 3 2 Olvin Maynard MD [id number],S, 2 .9 MM, pet pendingd Olvin Serota [id number],S, 2 55 n eg nuc Olvin Serota [id number],S, 4 9 Olvin Serota [id number],S, m od tr and mils to mod ai and mild to mod mr Bah Serotlaurel [id number],S, n eg nuc n eg dvt scan Olvin Serota [id number],S, 3 2 Olvin Serota [id number],C,49 Olvin Ser lawson [place] [id number],C,m od tr and mils to mod ai and mild to mod mr Olvin Maynard [id number],C,307 Olvin Se rota [place] [id number],B, Olvin Serot a [id number],C,6 Olvin Sero ta [place] [id number],C,32 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 [place] [id number],C,2.9 MM Olvin Serota [id number],C,255 Olvin Se rota [id number],S, Olvin Serot a [id number],S, Olvin Serot a [id number],C,up tot datde on colon Olvin Serota [id number],S, Olvin Serot a [id number],S, Olvin Serot a [id number],S, Olvin Serot a [id number],S, Olvin Serot a [id number],S, n eg nuc n eg dvt scan n eg egfr Olvin Maynard MD [id number],C,neg nuc Mila Maynard MD [id number],N, Olvin barragan MD [id number],S, Olvin barragan MD [id number],S, Olvin barragan MD [id number],S, Olvin barragan MD [id number],S, Olvin barragan MD :cold on pet , repeta 6 motnbsh Olvin Maynard MD TeleHealth;pet pendind Olvin spears MD Tele[facility];pet pendind Olvin spears MD TeleHealth;pet pendind Olvin separs MD TeleHealth;pet pendi nd: 3 07 Olvin Maynard MD TeleHealth;pet pendi nd: n eg dvt scan Olvin Maynard MD [facility];pet pendi nd: 3 2 Olvin Maynard MD Tele[facility];pet pendi nd: 2 .9 MM, pet pendingd Olvin Maynard MD Tele[facility];pet pendi nd: 2 55 n eg nuc Olvin Maynard MD [facility];pet pendi nd: 4 9 Olvin Maynard MD TeleHealth;pet pendi nd: m od tr and mils to mod ai and mild to mod mr Olvin Maynard MD [facility];pet pendi nd: n eg nuc n eg dvt scan Olvin Maynard MD Tele[facility];pet pendi nd: 3 2 Olvin Maynard MD :49 Olvin Maynard MD :mod tr and mils to mod ai and m ild to mod mr Olvin Maynard MD needs PET and F/U :307 Olvin spears MD needs PET and F/U Olvin Maynard MD needs PET and F/U :6 Olvin angela MD needs PET and F/U :32 Olvin pathak MD needs PET and F/U :2.9 MM Olvin Maynard MD needs PET and F/U :255 Olvin spears MD Cardiology Olvin Maynard MD Cardiology Olvin Maynard MD Cardiology:up tot datde on colon Olvin Maynard MD Cardiology Olvin Maynard MD Cardiology Olvin Maynard MD Cardiology Olvin Maynard MD Cardiology Olvin Maynard MD Cardiology: n eg nuc n eg dvt scan n eg egfr Olvin Maynard MD :neg nuc Olvin Maynard MD Olvin Maynard MD Cardiology New Patient Olvin spears MD Cardiology New Patient Olvin spears MD Cardiology New Patient Olvin spears MD Cardiology New Patient Olvin spears MD Date Name Kidney Ultrasound Renal Artery Duplex Holter Monitor 24 Hr Complete Echo PET/CT Skull-Thigh FOLATE, SERUM CBC (INCLUDES DIFF/P LT) Complete Echo RPM (remote patient monitoring) COMPREHENSIVE METABO LIC PANEL, W/EGFR PROBNP, N TERMINAL LIPID PANEL CRP, high sensitivit y Microalb/Creatinine Urine, Random CT, Coronary Calcium Score TSH, free T4, total T3 Holter Monitor 24 Hr PROTHROMBIN TIME WIT H INR LIPID PANEL CBC (INCLUDES DIFF/P LT) BASIC METABOLIC PANE L W/EGFR Stress Regadenoson VITAMIN B12 TSH, free T4, total T3 IRON AND TOTAL IRON BINDING CAPACITY FERRITIN CBC (INCLUDES DIFF/P LT) COMPREHENSIVE METABO LIC PANEL, W/EGFR LIPID PANEL Complete Echo Holter Monitor [address], Coronary Calcium Score HISTORY OF PROCEDURES Procedure Date Procedure Name Provider Procedure Notes S tatus CT- Coronary CA score Olvin Maynard MD completed EKG Olvin Maynard MD complete d Holter, 24 or 48 Olvin Maynard MD co mpleted EKG Olvin Maynard MD complete d
--- OUTSIDE RECORDS SUMMARY | 2024-05-22 20:07 | XMS_ITS | Continuity of Care Document ---
Author Organization [facility] Address [address] [place] [address] Phone Care Team Providers Care Supervisor Coremaker Name Role Phone Mariam Garnett Unavailable Unavailable Procedures Procedure Date Eye Exam & Treatment Refraction Eye Exam & Treatment Refraction Eye Exam & Treatment Refraction Eye Exam & Treatment Refraction Advance Directives Directive Yes / No Effective Date File Name No Information Encounters Encounter Description Practice Location Reason(s) For Visit Diagnoses Date Provider Providers Copied on Encounter [facility], [address] [place] [address] [address], [place], [place], [id number], [place] tel:[phone] [facility] [place] No Information 1-201 0 Mariola Becerra. [address] [place] , [address], [place], [place], [facility], [place]. tel:[phone] [facility], [address] [place] [address] [address], [place], [place], [id number], [place] tel:[phone] [facility] [place] No Information Mar-0 5-200 9 Mariola Franz [address] , [address], [place], [address], [place]. tel:[phone] [facility], [address], [place], [place], [id number], tel:[phone] [facility] No Information Mar-0 6-200 8 Mariola Becerra. [address] , [address], [place], [address], [place]. tel:[phone] [facility], [address], [place], [place], [id number], [place] tel:[phone] [facility] No Information Mar-0 1-200 7 Mariola Becerra. [address] , [address], [place], [address], [place]. tel:[phone] Family History Family Member Type Diagnosis Age At Onset No Information Payers Payer name Insurance type Covered alliance party ID Authorcheri wilson(s) [employer] Vision Plan [id number] Social History Type Description Quantity Date Captured Comments Sex Female Smoking Status No Information Chief Complaint And Reason For Visit No Information Reason For Referral Reason For Referral No Information History Of Present Illness Encounter Date Complaint History Of Prese nt Illness No Information Functional Status Date Functional Assessmen t No Information Instructions Date Instruction Additional Infor mation No Information Assessments Type Assessment Date No Information Patient Care Teams Name Effective Dates (start - stop) Status Members No Information
== END 2024-05-20 18:15 | DRG 690 ==
LOC: ANHED 19:00 → ANH3MED 21:45
PROVIDERS: Family Medicine; Internal Medicine; Nurse Practitioner Adult Health; Nurse Practitioner Family; Physician Assistant; Admitting Provider Internal Medicine; Emergency Provider Physician Assistant; PCP Internal Medicine; Visit Provider Student in an Organized Health Care Education/Training Program
DX: N39.0 Urinary tract infection, site not specified (principal); I13.0 Hypertensive heart and chronic kidney disease with heart failure and stage 1 through stage 4 chronic kidney disease, or unspecified chronic kidney disease; I48.0 Paroxysmal atrial fibrillation; I50.32 Chronic diastolic (congestive) heart failure; B96.20 Unspecified Escherichia coli [E. coli] as the cause of diseases classified elsewhere; B96.4 Proteus (mirabilis) (morganii) as the cause of diseases classified elsewhere; D50.9 Iron deficiency anemia, unspecified; E03.9 Hypothyroidism, unspecified; I95.9 Hypotension, unspecified; K59.00 Constipation, unspecified; K21.9 Gastro-esophageal reflux disease without esophagitis; N18.30 Chronic kidney disease, stage 3 unspecified; Z98.41 Cataract extraction status, right eye; Z98.42 Cataract extraction status, left eye; Z96.651 Presence of right artificial knee joint; Z90.49 Acquired absence of other specified parts of digestive tract; Z79.01 Long term (current) use of anticoagulants; Z28.21 Immunization not carried out because of patient refusal; Z79.84 Long term (current) use of oral hypoglycemic drugs
CPT/HCPCS: 36415; 74177; 80048; 80053; 81001; 82948; 83605; 83690; 83735; 84132; 84443; 85025; 85027; 87040; 87086; 87186; 93005; 96361; 96365; 96366; 97161; 99285; A9270; G0378; J0696; J7030; J7040; Q9967

== ENCOUNTER 2024-10-24 08:50 | Emergency (ER) | payer MEDICARE, MEDICAID, SELFPAY ==
--- NOTE | ~2024-10-24 | XR_ITS ---
EXAMINATION: XR chest 2V 10/24/2024 09:40 INDICATION: Chest pain PROCEDURE: 2 view chest COMPARISON: Comparison to multiple prior studies sequentially, with oldest reviewed study dated 01/08. FINDINGS: The lungs are clear. The cardiomediastinal silhouette is within normal limits. There are no pleural effusions. There is no pneumothorax suspected. There is a left total shoulder arthroplas ty. There is a burst fracture of L1, age indeterminate. IMPRESSION: 1: NO ACUTE CARDIOPULMONARY DISEASE. 2: Age-indeterminate L1 burst fracture. Reviewed, dictated and finalized at location A.
--- NOTE | 2024-10-24 08:52 | ECG_ITS ---
Test Date: 2024-10-24 08:36:17 Measurements Intervals Bessie Rate: 65 P: 0 UT: 0 QRS: 19 QRSD: 89 T: 30 QT: 419 QTc: 438 Interpretive Statements SINUS RHYTHM WITH FIRST DEGREE AV BLOCK EARLY PRECORDIAL R/S TRANSITION BASELINE ARTIFACT- I, II, III, AVR, AVL, AVF, V1-V6 BORDERLINE ECG Compared to ECG 05/17/2024 10:02:17 HEART RATE HAS INCREASED Electronically Signed On 10-24-2024 13:18:06 CDT by Se Eddy D.O.
[2024-10-24 09:01] VITALS: BP 123/58; PULSE 55; RESP 12; TEMP 36.6; O2SAT 97
[2024-10-24 09:04] LABS: Basophils Percent Auto 0.4 % (0.2-1.2); Eosinophils Absolute Auto 0.3 K/mm3 (0-0.3); Eosinophils Percent Auto 4.4 % (0-4.4); Hematocrit 31.9 % (37.0-47.0); Hemoglobin 9.8 g/dL (12.0-15.0); Immature Granulocyte Absolute 0.03 K/mm3 (0.00-0.031); Immature Granulocyte Percent A 0.4 % (0-0.5); Lymphocytes Percent Auto 21.8 % (18.3-44.2); Mean Corpuscular HGB Conc 30.7 g/dl (32-36); Mean Corpuscular Hemoglobin 29.8 pg (26-34); Mean Platelet Volume 9.9 fl (7.4-10.4); Monocytes Absolute Auto 0.6 K/mm3 (0.1-0.6); Monocytes Percent Auto 8.6 % (2.6-8.5); Neutrophils Absolute Auto 4.4 K/mm3 (1.3-6.7); Neutrophils Percent Auto 64.4 % (45.5-73.1); Platelet Count Result 198 k/mm3 (150-375); Red Blood Count 3.29 M/mm3 (4.2-5.4); Red Cell Distribution Width 17.2 % (11.5-14.5); White Blood Count 6.9 K/mm3 (4.5-10.0)
--- OUTSIDE RECORDS SUMMARY | 2024-10-24 09:10 | XMS_ITS | CONTINUITY OF CARE DOCUMENT ---
Author Name adrian campbell Address Unknown Organization [facility] Address [address] [place] [address] Phone [phone] Care Team Providers Care Admission Liaison Name Role Phone Bonny JARAMILLO, Kiko Unavailable Kiko Draper MD Unavailable [phone] Johanna Nieto MD Unavailable PROBLEMS Condition Status [...] Hyperlipidemia;with high crp active Olvin Maynard MD HTN essential active Olvin Maynard MD Obesity active Olvin Maynard MD Hypothyroidism active Olvin Maynard MD Knee pain, right, chronic active Olvin pathak MD covid 19;HAD VACCINE active Olvin pathak MD Screening active Olvin Maynard MD Bradycardia;due to rx active Olvin Maynard MD AV block, 1st degree;due to meds active Olvin Maynard MD Atrial fib paroxysmal;NML TSH on rx active Olvin Maynard MD Renal disease, chronic, mild active Olvin Maynard MD neg urac, on arb and jardicne COUGH DUE TO CHLOÉ INHIBITORS, HX OF active Olvin Maynard MD ENCOUNTERS Date Type Provider Location Encounter Diag nosis 8 - 8 In-person encounter Office Visit [facility]adr [facility] ScreeningRenal disease, chronic, mildCOUGH DUE TO CHLOÉ INHIBITORS, HX OF 3 - 3 In-person encounter Office Visit Olvin Maynard MD [place] [facility] covid 19;2020;HAD VACCINEBradycardia;due to rxAV block, 1st degree;due to medsAtrial fib paroxysmal;NML TSH on rx 6 - 6 In-person encounter Office Visit Olvin Maynard MD [place] [facility] HTN essentialObesityHypothyroidismKnee pain, right, chronic VITAL [...] lacy Guevara blood pressure, diastolic 70 mm[Hg] Cy lacy Guevara blood pressure, systolic 130 mm[Hg] Kelly [...] 8 Absolute Neutrophil count 3865 cells/mcL [facility] 6286-3095 Normal 8 mean platelet volume 10.5 fL [...] revi ewed - no changes required Olvin Maynadr MD smoking status Never smoker Kelsie Deven [...] Payer name Policy type / Coverage type [place] red libertarian ID [place] Medicare [facility] AND [facility] Medicaid 4 [id number] [place] [id number] ADVANCE DIRECTIVES Name Date DISCUSSED - NO DECISION MADE TREATMENT PLAN Date Name Performer [id number],C,cold on pet , repeta 6 motnbsh Olvin Maynard MD [id number],S, Olvin barragan MD [id number],S, Olvin barragan MD [id number],B, Olvin barragan MD [id number],C, 3 07 Olvin Maynard MD [id number],S, n eg dvt scan Olvin Maynard MD [id number],S, 3 2 Olvin Serota MD [id number],S, 2 .9 MM, pet pendingd Olvin Serota [id number],S, 2 55 n eg nuc Olvin Serota MD [id number],S, 4 9 Olvin Serota [place] [id number],S, m od tr and mils to mod ai and mild to mod mr Bah Serota [place] [id number],S, n eg nuc n eg dvt scan Olvin Serota [place] [id number],S, 3 2 Olvin Serota [place] [id number],C,49 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 [place] [id number],C,m od tr and mils to mod ai and mild to mod mr Olvin Maynard [place] [id number],C,307 Olvin Se rota [place] [id number],B, Olvin Serot a [place] [id number],C,6 Olvin Sero ta [place] [id number],C,32 Olvin Ser lawson [place] [id number],C,2.9 MM Olvin Serota [place] [id number],C,255 Olvin Se rota [place] [id number],S, Olvin Serot a [place] [id number],S, Olvin Serot a [place] [id number],C,up tot datde on colon Olvin Serota [id number],S, Olvin Serot a [place] [id number],S, Olvin Serot a [place] [id number],S, Olvin Serot a [place] [id number],S, Olvin Serot a [place] [id number],S, n eg nuc n eg dvt scan n eg egfr Olvin Maynard MD [id number],C,neg nuc Mila Maynard MD [id number],N, Olvin barragan MD [id number],S, Olvin barragan MD [id number],S, Olvin barragan MD [id number],S, Olvin barragan MD [id number],S, Olvin barragan MD :cold on pet , repeta 6 motnbsh Olvin Maynard MD TeleHealth;pet pendind Olvin spears MD TeleHealth;pet pendind Olvin spears MD TeleHealth;pet pendind Olvin spears MD TeleHealth;pet pendi nd: 3 07 Olvin [...]
--- OUTSIDE RECORDS SUMMARY | 2024-10-24 09:10 | XMS_ITS | Continuity of Care Document ---
Author Organization [facility] Address [address] [place] [address] Phone Care Team Providers Care Coin Machine Collector Name Role Phone Mariam Garnett Unavailable Unavailable Procedures Procedure Date Eye Exam & Treatment Refraction Eye Exam & Treatment Refraction Eye Exam & Treatment Refraction Eye Exam & Treatment Refraction Advance Directives Directive Yes / No Effective Date File Name No Information Encounters Encounter Description Practice Location Reason(s) For Visit Diagnoses Date Provider Providers Copied on Encounter [facility], [address] [place] [address] [address], [place], [place], [id number], [place] tel:[phone] [facility] [place] No Information 1-201 0 Mariola Becerra. [address] , [address], [place], [place], [facility], [place]. tel:[phone] [facility], [address] [place] [address] [address], [place], [place], [id number], [place] tel:[phone] [facility] [place] No Information Mar-0 5-200 9 Mariola Franz [address] , [address], [place], [address], [place]. tel:[phone] [facility], [address], [place], [place], [address], [place] tel:[phone] [facility] No Information Mar-0 6-200 8 Mariola Becerra. [address] [facility] , [address], [place], [address], [place]. tel:[phone] [facility], [address], [place], [place], [address], [place] tel:[phone] [facility] No Information Mar-0 1-200 7 Mariola Becerra. [address] [facility] , [address], [place], [address], [place]. tel:[phone] Family History Family Member Type Diagnosis Age At Onset No Information Payers Payer name Insurance type Covered republican ID Authorcheri wilson(s) [employer] Vision Plan [id number] Social History Type Description Quantity Date Captured [...]
[2024-10-24 09:12] LABS: Alanine Aminotransferase 12 U/L (6-35); Albumin Level 3.6 g/dL (3.5-5.1); Alkaline Phosphatase 68 U/L (38-126); Anion Gap 6 mmol/L (4-12); Aspartate Amino Transferase 21 U/L (14-36); Bilirubin,Total 0.4 mg/dL (0.2-1.3); Blood Urea Nitrogen 52 mg/dL (7-17); Calcium 9.3 mg/dL (8.4-10.2); Carbon Dioxide 23 mmol/L (22-30); Chloride 108 mmol/L (98-107); Estimated CRCL calculation 26 ml/min; Estimated Glomerular Filt Rate 40; Glucose 110 mg/dL (65-110); Lipase 44 U/L (23-300); Sodium 137 mmol/L (137-145)
[2024-10-24 09:16] VITALS: BP 126/82; PULSE 57; RESP 12; TEMP 36.6; O2SAT 97
--- NOTE | 2024-10-24 09:21 | ED.CHESTPAIN ---
HPI - Chest Pain General Chief Complaint: Chest Pain Stated Complaint: chest pain Time Seen by Provider: 10/24/24 09:07 History of Present Illness HPI narrative: Patient is an 88-year-old female who presents to the ER with complaints of chest pain. She reports the chest pain is in her left upper and mid sternal area. Patient reports the pain started this morning. She denies any recent falls, shortness of breath, abdominal pain or recent fevers. Her chart indicates she has a history of paroxysmal atrial fibrillation on chronic anticoagulation, hypertension, heart failure with preserved ejection fraction, chronic kidney disease stage 3, hypothyroidism, iron deficiency anemia, and gastroesophageal reflux disease. Related Data Home Medications ?Medication ?Instructions ?Recorded ?Confirmed ?Last Taken ?Type apixaban 2.5 mg tablet (Eliquis) 2.5 mg PO BID 01/08/22 09/04/24 05/15/24 History diltiazem HCl 120 mg tablet 120 mg PO DAILY 01/08/22 09/04/24 05/15/24 History levothyroxine 112 mcg tablet 112 mcg PO DAILY 01/08/22 09/04/24 05/15/24 History metoprolol succinate 100 mg 100 mg PO DAILY 01/08/22 09/04/24 05/15/24 History tablet,extended release 24 hr omeprazole 20 mg capsule,delayed 20 mg PO DAILY 01/08/22 09/04/24 05/15/24 History release atorvastatin 40 mg tablet 40 mg PO DAILY 08/02/22 09/04/24 05/15/24 History empagliflozin 10 mg tablet 10 mg PO DAILY 08/02/22 09/04/24 05/15/24 History (Jardiance) ferrous sulfate 325 mg (65 mg 325 mg PO DAILY 08/02/22 09/04/24 05/15/24 History iron) tablet furosemide 40 mg tablet 40 mg PO DAILY 08/02/22 09/04/24 05/15/24 History losartan 50 mg tablet 50 mg PO DAILY 08/02/22 09/04/24 05/15/24 History potassium chloride 20 mEq 20 meq PO EVERY OTHER DAY 08/02/22 09/04/24 05/14/24 History tablet,extended release hydrocodone 5 mg-acetaminophen 325 0.5 tablet PO Q8H 12/21/23 09/04/24 05/15/24 History mg tablet acetaminophen 500 mg tablet 1,000 mg PO Q6H PRN pain 05/15/24 09/04/24 Unknown History cranberry conc-vit 1 ea PO BID 05/15/24 09/04/24 05/15/24 History A-osltbte-QEY-bromelain 3,875 mg/30 mL oral liquid (UTI-Stat) loperamide 2 mg tablet 2 mg PO Q6H PRN loose stool 05/15/24 09/04/24 Unknown History (Anti-Diarrheal (loperamide)) oxybutynin chloride 5 mg tablet 5 mg PO DAILY 05/15/24 09/04/24 05/15/24 History benzonatate 100 mg capsule 100 mg PO TID PRN 06/05/24 09/04/24 Unknown History Allergies Allergy/AdvReac Type Severity Reaction Status Date / Time No Known Allergies Allergy Mild Verified 09/04/24 10:17 Review of Systems Review of Systems: All systems reviewed & are unremarkable except as noted in HPI and below PMFSH Past Medical History Medical History Chronic kidney disease, stage 3 Compression fracture of L1 lumbar vertebra Gastroesophageal reflux disease Chronic anticoagulation Atrial fibrillation Hypertension Hypothyroidism Surgical History Surgical History History of bilateral cataract extraction History of right knee joint replacement History of open reduction and internal fixation (ORIF) procedure Left arm History of hysterectomy History of appendectomy Family History Family History Son Throat cancer Lung cancer Social History Social History Social History: Surrogate medical decision maker: Neri Galvez, luz. Code status: Full code. Smoking status: Never smoker Second hand tobacco smoke exposure: No Alcohol intake: never Substance use: never Substance use type: does not use Do You Feel Safe in your Home?: Yes Lack of Transportation: No Lack of Food: Never True Current Housing: I Have Housing Concerned About Future Housing: No Difficulty Paying Gas/Electric Bills: No Difficulty Paying for Meds: No Currently Unemployed: No Education: Decline to Answer Difficulty w/ Childcare or Family Care: No Spiritual care concerns: No Exam Narrative: GENERAL: Well appearing, well-nourished, non-toxic, in acute distress d/t pain. HEAD: Normocephalic, atraumatic. NECK: Supple. No adenopathy, no masses. RESPIRATORY: Airway patent, respirations nonlabored. Clear to auscultation bilaterally, no rales, rhonchi, wheezing. CARDIOVASCULAR: Bradycardia, slightly irregular rhythm without murmurs, rubs, or gallops. Peripheral pulses 2+ and equal bilaterally, + pain with touch to chest ABDOMINAL: Soft, nontender, nondistended, no hepatosplenomegaly. Normoactive BS. MUSCULOSKELETAL: Moves all extremities. Strength/ROM intact without gross deformities. SKIN: Warm, dry, normal color. + rash on pt's L middle and upper chest consistent with shingles rash NEURO: A&O X3. Speech clear. Cranial nerves II-XII intact. No ataxic movements. PSYCHIATRIC: Appropriate mood and affect. Normal interaction. Course Vital Signs Vital signs: Vital Signs Temperature 36.6 C 10/24/24 09:01 Pulse Rate 55 L 10/24/24 09:01 Respiratory Rate 12 10/24/24 09:01 Blood Pressure 123/58 L 10/24/24 09:01 Pulse Oximetry 97 10/24/24 09:01 Oxygen Delivery Room Air 10/24/24 09:01 Temperature 36.8 C 10/24/24 11:21 Pulse Rate 65 10/24/24 11:21 Respiratory Rate 16 10/24/24 11:21 Blood Pressure 132/85 10/24/24 11:21 Pulse Oximetry 100 10/24/24 11:21 Oxygen Delivery Room Air 10/24/24 09:01 MDM - Chest Pain MDM Narrative Medical decision making narrative: Patient is an 88-year-old female who presents to the ER with complaints of chest pain. She reports the chest pain is in her left upper and mid sternal area. Patient reports the pain started this morning. She denies any recent falls, shortness of breath, abdominal pain or recent fevers. Her chart indicates she has a history of paroxysmal atrial fibrillation on chronic anticoagulation, hypertension, heart failure with preserved ejection fraction, chronic kidney disease stage 3, hypothyroidism, iron deficiency anemia, and gastroesophageal reflux disease. She describes her pain as tingling. Labs Ordered: CBC, CMP, lipase, coags, troponin Imaging Ordered: Chest x-ray Medications Ordered: Morphine 2 mg IV, Danevang PO, Lidocaine 5% transderm Results: Pt's chest x-ray indicates 1: NO ACUTE CARDIOPULMONARY DISEASE. 2: Age-indeterminate L1 burst fracture. Diagnosis: Chest pain related to shingles Consults: none necessary Patient Education/Shared MDM: BUSINESS DEVELOPMENT ASSOCIATE assessed patient's chest and explained to patient that she has a rash on her chest that is consistent with shingles. Patient reports ?I just had shingles. Results of lab work and imaging shared with patient and her family. Pt endorses improvement of symptoms following medication administration. Her family reports she is supposed to have pain medication for her shingles at the retirement where she lives, but they are unsure if she gets her medications. They are all in agreement that her pain is most likely not cardiac related, as she was recently seen in the ER in [place] for the same symptoms when she was diagnosed with shingles and her cardiac work-up was normal. Patient strongly advised to follow-up with her PCP as soon as possible for further pain control. She will be discharged home with a prescription for Lidocaine patches and Danevang PO. Strict return precautions provided. Patient verbalized understanding and is in agreement with plan. Vital signs stable at time of discharge. All questions answered. Differential Diagnosis Differential diagnosis: Likely atypical chest pain, st elevation myocardial infarction, costochondritis and other (shingles ) Lab Data Attestation: I reviewed the patient's lab results. 10/24/24 08:58 10/24/24 08:58 Labs: Lab Results 10/24/24 10/24/24 Range/Units 08:58 11:48 WBC 6.9 (4.5-10.0) K/mm3 RBC 3.29 L (4.2-5.4) M/mm3 Hgb 9.8 L (12.0-15.0) g/dL Hct 31.9 L (37.0-47.0) % MCV 97.0 (80-100) fl MCH 29.8 (26-34) pg MCHC 30.7 L (32-36) g/dl RDW 17.2 H (11.5-14.5) % Plt Count 198 (150-375) k/mm3 MPV 9.9 (7.4-10.4) fl Immature Gran % (Auto) 0.4 (0-0.5) % Neut % (Auto) 64.4 (45.5-73.1) % Lymph % (Auto) 21.8 (18.3-44.2) % [place] % (Auto) 8.6 H (2.6-8.5) % Eos % (Auto) 4.4 (0-4.4) % Baso % (Auto) 0.4 (0.2-1.2) % Lymph # (Auto) 1.50 (0.9-3.2) K/mm3 [place] # (Auto) 0.6 (0.1-0.6) K/mm3 Eos # (Auto) 0.3 (0-0.3) K/mm3 Baso # (Auto) 0.0 (0.0-0.1) K/mm3 Abs Immat Gran (auto) 0.03 (0.00-0.031) K/mm3 Absolute Neuts (auto) 4.4 (1.3-6.7) K/mm3 Absolute Nucleated RBC 0.000 (0.0-0.012) K/mm3 Nucleated RBC % 0.0 (0.0-0.2) % PT 15.6 H (11.1-14.7) Seconds INR 1.2 APTT 29.9 (22.3-36.8) Seconds Sodium 137 (137-145) mmol/L Potassium 4.0 (3.4-5.0) mmol/L Chloride 108 H (98-107) mmol/L Carbon Dioxide 23 (22-30) mmol/L Anion Gap 6 (4-12) mmol/L BUN 52 H D (7-17) mg/dL Creatinine 1.25 H (0.7-1.0) mg/dL Estim Creat Clear Calc 26 ml/min Estimated GFR 40 L (59 - ) Glucose 110 (65-110) mg/dL Calcium 9.3 (8.4-10.2) mg/dL Total Bilirubin 0.4 (0.2-1.3) mg/dL AST 21 (14-36) U/L ALT 12 (6-35) U/L Alkaline Phosphatase 68 (38-126) U/L Troponin I 0.017 0.017 (0.000-0.034) ng/mL Total Protein 7.0 (6.3-8.2) g/dL Albumin 3.6 (3.5-5.1) g/dL Lipase 44 (23-300) U/L Imaging Data Attestation: I personally reviewed and interpreted this imaging study as follows: Radiologist's impression: Impressions Chest X-Ray 10/24/24 09:52 IMPRESSION: 1: NO ACUTE CARDIOPULMONARY DISEASE. 2: Age-indeterminate L1 burst fracture. Discharge Plan Discharge Clinical Impression: Shingles, History of shingles, Herpes zoster infection of thoracic region, Chest skin lesion Patient Disposition: [place] Detention/Asst Living Condition: Stable Instructions: Antibiotic Form, Shingles (ED) Additional Instructions: Please return to the ER with any worsening symptoms. Follow-up with primary care provider as soon as possible for further pain control options. Take all medications as prescribed, including regularly scheduled medications. You may use Tylenol, Danevang, and lidocaine patches for pain control. Patient Language: Swedish Prescriptions: New hydrocodone-acetaminophen 5-325 mg tablet 1 tablet PO Q6H PRN (Reason: pain) Qty: 10 0RF lidocaine 5 % adhesive patch,medicated 2 patch topical DAILY Qty: 30 0RF Rx Instructions: leave on most painful area for up to 12 hrs No Action hydrocodone-acetaminophen 5-325 mg tablet 0.5 tablet PO Q8H benzonatate 100 mg capsule 100 mg PO TID PRN metoprolol succinate 100 mg tablet extended release 24 hr 100 mg PO DAILY diltiazem HCl 120 mg tablet 120 mg PO DAILY omeprazole 20 mg capsule,delayed release(DR/EC) 20 mg PO DAILY levothyroxine 112 mcg tablet 112 mcg PO DAILY Eliquis 2.5 mg tablet 2.5 mg PO BID losartan 50 mg tablet 50 mg PO DAILY atorvastatin 40 mg tablet 40 mg PO DAILY Jardiance 10 mg tablet 10 mg PO DAILY furosemide 40 mg tablet 40 mg PO DAILY potassium chloride 20 mEq Tablet Extended Release 20 meq PO EVERY OTHER DAY ferrous sulfate 325 mg (65 mg iron) Tablet 325 mg PO DAILY oxybutynin chloride 5 mg tablet 5 mg PO DAILY loperamide [Anti-Diarrheal (loperamide)] 2 mg tablet 2 mg PO Q6H PRN (Reason: loose stool) UTI-Stat 3,875 mg/30 mL liquid 1 ea PO BID Rx Instructions: 30mls acetaminophen 500 mg tablet 1,000 mg PO Q6H PRN (Reason: pain) polyethylene glycol 3350 [Miralax] 17 gram Powder In Packet 17 g PO QAM Qty: 14 0RF Follow-up/Referrals: Viktor,Khang Moran MD [Primary Care Provider] - Stand Alone Forms: Jail Discharge Time of Disposition: 13:03
--- OUTSIDE RECORDS SUMMARY | 2024-10-24 09:24 | XMS_ITS | Continuity of Care Document ---
Author Organization [facility] Address [address] [place] [address] Phone Care Team Providers Care Wildlife Conservationist Name Role Phone Mariam Garnett Unavailable Unavailable Procedures Procedure Date Eye Exam & Treatment Refraction Eye Exam & Treatment Refraction Eye Exam & Treatment Refraction Eye Exam & Treatment Refraction Advance Directives Directive Yes / No Effective Date File Name No Information Encounters Encounter Description Practice Location Reason(s) For Visit Diagnoses Date Provider Providers Copied on Encounter [facility], [address] [place] [address] [address], [place], [place], [id number], [place] tel:[phone] [facility] [place] No Information 1-201 0 Mariola Becerra. [address] , [address], [place], [place], [facility], [place]. tel:[phone] [facility], [address] [place] [address] [address], [place], [place], [id number], [place] tel:[phone] [facility] [place] No Information Mar-0 5-200 9 Mariola Franz [address] , [address], [place], [address], [place]. tel:[phone] [facility], [address], [place], [place], [id number], [place] tel:[phone] [facility] No Information Mar-0 6-200 8 Mariola Becerra. [address] , [address], [place], [address], [place]. tel:[phone] [facility], [address], [place], [place], [id number], [place] tel:[phone] [facility] No Information Mar-0 1-200 7 Mariola Becerra. [address] , [address], [place], [address], [place]. tel:[phone] Family History Family Member Type Diagnosis Age At Onset No Information Payers Payer name Insurance type Covered democrat ID Authorcheri wilson(s) [employer] Plan [id number] Social History Type Description Quantity Date Captured [...]
[2024-10-24 09:25] LABS: Troponin I 0.017 ng/mL (0.000-0.034)
[2024-10-24 09:30] LABS: INR 1.2; Prothrombin Time 15.6 Seconds (11.1-14.7)
[2024-10-24 09:31] LABS: Partial Thromboplastin Time 29.9 Seconds (22.3-36.8)
[2024-10-24] MEDS: MORPHINE SULFATE (*CRX) 2 MG/ML INJ IV PUSH (09:43)
[2024-10-24 09:48] VITALS: BP 145/73; PULSE 59; RESP 20; TEMP 36.6; O2SAT 99
[2024-10-24 10:34] VITALS: BP 133/65; PULSE 57; RESP 14; TEMP 36.6; O2SAT 100
--- NOTE | 2024-10-24 11:14 | PC.NURSE ---
assumed care of pt from MATTHEW Oakes. pt resting on stretcher, family at bedside. no distress at this time
[2024-10-24 11:21] VITALS: BP 132/85; PULSE 65; RESP 16; TEMP 36.8; O2SAT 100
--- NOTE | 2024-10-24 11:42 | ECG_ITS ---
Test Date: 2024-10-24 11:47:46 Measurements Intervals [place] Rate: 64 P: 0 CT: 0 QRS: 3 QRSD: 81 T: 21 QT: 416 QTc: 430 Interpretive Statements SINUS RHYTHM WITH FIRST DEGREE AV BLOCK WITH ATRIAL PREMATURE COMPLEXES LOW QRS VOLTAGE IN PRECORDIAL LEADS EARLY PRECORDIAL R/S TRANSITION BORDERLINE ST-T WAVE ABNORMALITY- ANT/INF LEADS BASELINE ARTIFACT- I, II, III, AVR, AVL ,AVF, V1-V6 BORDERLINE ECG Compared to ECG 05/17/2024 10:02:17 HEART RATE HAS INCREASED Electronically Signed On 10-24-2024 12:06:08 CDT by Se Eddy D.O.
[2024-10-24] MEDS: HYDROcodone/acetaminophen (*CRX) 5-325 MG TABLET 1 TAB PO (11:51)
[2024-10-24] MEDS: LIDOCAINE 5% PATCH 1 PATCH TRANSDERM (11:51)
[2024-10-24 12:21] LABS: Troponin I 0.017 ng/mL (0.000-0.034)
[2024-10-24 13:35] VITALS: BP 138/48; PULSE 57; RESP 18; TEMP 36.8; O2SAT 98
== END 2024-10-24 13:37 ==
PROVIDERS: Emergency Medicine; Emergency Provider Registered Nurse; PCP Internal Medicine
DX: B02.9 Zoster without complications (principal); I13.0 Hypertensive heart and chronic kidney disease with heart failure and stage 1 through stage 4 chronic kidney disease, or unspecified chronic kidney disease; N18.30 Chronic kidney disease, stage 3 unspecified; I50.9 Heart failure, unspecified; I48.0 Paroxysmal atrial fibrillation; E03.9 Hypothyroidism, unspecified; D50.9 Iron deficiency anemia, unspecified; K21.9 Gastro-esophageal reflux disease without esophagitis; Z98.42 Cataract extraction status, left eye; Z98.41 Cataract extraction status, right eye; Z96.651 Presence of right artificial knee joint; Z90.710 Acquired absence of both cervix and uterus; Z79.01 Long term (current) use of anticoagulants
CPT/HCPCS: 36415; 71046; 80053; 83690; 84484; 85025; 85610; 85730; 93005; 96374; 99284; A9270; J2270